=== PATIENT | female | born 1975 | race Caucasian/White ===

== ENCOUNTER 2020-06-15 22:29 | Emergency (ER) | payer BC, SELFPAY ==
[2020-06-15 22:51] VITALS: BP 147/84; PULSE 79; RESP 16; TEMP 36.7; O2SAT 99
--- NOTE | 2020-06-15 22:57 | ECG_ITS ---
Measurements Intervals [place] Rate: 67 P: 36 KS: 202 QRS: -5 QRSD: 78 T: 29 QT: 388 QTc: 410 Interpretive Statements SINUS RHYTHM LOW QRS VOLTAGE IN PRECORDIAL LEADS BORDERLINE ECG Electronically Signed On 06-16-2020 7:00:30 CDT by Ervin Sharma D.O.
[2020-06-15] MEDS: methylPREDNISolone ACETATE 40 MG/ML VIAL 80 MG IM (23:11)
[2020-06-15 23:19] LABS: Hematocrit 36.1 % (35.0-49.0); Hemoglobin 11.4 g/dL (12.0-15.0); Mean Corpuscular HGB Conc 31.6 g/dL (32.0-36.0); Mean Corpuscular Hemoglobin 27.8 pg (27.0-31.0); Platelet Count Result 292 K/mm3 (150-420); Red Cell Distribution Width 13.2 % (11.6-14.4)
[2020-06-15 23:35] LABS: Alanine Aminotransferase 15 U/L (14-59); Albumin Level 3.5 g/dL (3.4-5.0); Alkaline Phosphatase 72 U/L (46-116); Anion Gap 8 mmol/L (8-16); Aspartate Amino Transferase 16 U/L (15-37); Bilirubin,Total 0.2 mg/dL (0.00-1.00); Blood Urea Nitrogen 18 mg/dL (7-18); Carbon Dioxide 28 mmol/L (21-32); Chloride 106 mmol/L (98-108); Estimated CRCL calculation 73 ml/min; Estimated Glomerular Filt Rate > 60; Glucose 104 mg/dL (70-99); Osmolality Calculated 295 mOsm/kg (285-295); Potassium 3.9 mmol/L (3.5-5.1); Sodium 142 mmol/L (136-145); Total Protein 7.1 g/dL (6.4-8.2)
--- NOTE | 2020-06-15 23:36 | ED.NEUROSD ---
HPI - Neuro Symptoms/Deficit General Chief Complaint: Neuro Symptoms/Deficit Stated Complaint: numbness in arm,swelling Source: patient Mode of arrival: ambulatory Limitations: no limitations History of Present Illness HPI Narrative: This is a 44-year-old female with no previous past medical history presents with some numbness and tingling in her left hand and fingers radiates into her 4 am and into her left shoulder, currently there is no known injury no history of smoking currently not taking any medications. There is no chest pain no chest pressure no shortness of breath no neck pain. Has full range of motion of her of her left arm and shoulder and no pain elicited with neck movement or palpation. Onset (ago): hour(s) Severity: mild Quality: numb and tingling Relieving factors: rest Exacerbating factors: none Context: gradual onset Associated symptoms: denies other symptoms Related Data Home Medications Medication Instructions Recorded Confirmed levothyroxine [Synthroid] 50 mcg PO DAILY 06/15/20 06/15/20 Allergies Allergy/AdvReac Type Severity Reaction Status Date / Time No Known Allergies Allergy Unknown Verified 01/17/16 13:07 Review of Systems Review of Systems: All systems reviewed & are unremarkable except as noted in HPI and below PMFSH Past Medical History Medical History Patient denies medical problems Family History Family History Grandparent Family history of arthritis Other Family history of malignant neoplasm Social History Social History Smoking status: Never smoker Alcohol intake: never Gender identity (if verbalized by the patient): Female Exam Const: General: no acute distress and alert Orientation/consciousness: patient oriented x3 HENMT: Head: normal to inspection Eyes: Conjunctivae: conjunctivae normal Pupils: Equal, round and reactive pupils present EOM: EOMs intact bilaterally Neck: Neck: normal visual inspection, no lymphadenopathy and no meningeal signs Chest: Chest palpation & inspection: normal inspection of the chest Resp: Effort & Inspection: normal respiratory effort Auscultation: clear to auscultation bilaterally Cardio: Rate: regular rate Rhythm: regular rhythm GI: GI Palp: Yes Soft to palpation Auscultation: normal bowel sounds Urinary Catheter: Urinary Catheter: patent and draining Back/Spine/Pelvis: Back: no CVA tenderness Skin: General skin exam: normal color Rashes: no rashes Neuro: General: patient oriented x3 and moves all extremities Other: left wrist positive tinneal sign Extrem: General: normal to inspection Psych: Mental Status: mental status grossly normal Course Course Emergency Course: currently no numbness or tingling, numbness in her fingers were elicited with a provocative movement of her left wrist with tinneal Vital Signs Vital signs: Vital Signs Temperature 36.7 C 06/15/20 22:51 Pulse Rate 79 06/15/20 22:51 Respiratory Rate 16 06/15/20 22:51 Blood Pressure 147/84 H 06/15/20 22:51 Pulse Oximetry 99 06/15/20 22:51 Temperature 36.7 C 06/15/20 22:51 Pulse Rate 79 06/15/20 22:51 Respiratory Rate 16 06/15/20 22:51 Blood Pressure 147/84 H 06/15/20 22:51 Pulse Oximetry 99 06/15/20 22:51 MDM - Neuro Symptoms/Deficit Lab Data Result diagrams: 06/15/20 23:14 06/15/20 23:14 Labs: Lab Results 06/15/20 06/15/20 Range/Units 23:14 23:14 WBC 8.0 (4.8-10.8) K/mm3 RBC 4.10 L (4.20-5.40) M/mm3 Hgb 11.4 L (12.0-15.0) g/dL Hct 36.1 (35.0-49.0) % MCV 88.0 (78.0-102.0) fL MCH 27.8 (27.0-31.0) pg MCHC 31.6 L (32.0-36.0) g/dL RDW 13.2 (11.6-14.4) % Plt Count 292 (150-420) K/mm3 MPV 10.0 (9.2-11.8) fl Sodium Pending Potassium Pending Chlo
[2020-06-15 23:37] LABS: Troponin I < 0.02 ng/mL (0.00-0.056)
[2020-06-15 23:41] LABS: Calcium 8.9 mg/dL (8.5-10.1)
[2020-06-15 23:53] VITALS: BP 142/89; PULSE 75; RESP 18; O2SAT 98
== END 2020-06-15 23:53 | disposition home or self-care (01) ==
PROVIDERS: Emergency Provider Emergency Medicine; PCP Internal Medicine Infectious Disease
DX: G56.02 Carpal tunnel syndrome, left upper limb (principal)
CPT/HCPCS: 36415; 80053; 84484; 85027; 93005; 96372; 99283; 99284; J1030

== ENCOUNTER 2022-11-06 12:13 | Outpatient (CLI) | payer BC, SELFPAY ==
--- NOTE | 2022-11-06 12:42 | ECG_ITS ---
Measurements Intervals [place] Rate: 80 P: 38 PA: 176 QRS: 23 QRSD: 78 T: 31 QT: 380 QTc: 440 Interpretive Statements SINUS RHYTHM POSSIBLE LEFT ATRIAL ENLARGEMENT BORDERLINE ECG COMPARED TO ECG 06/15/2020 23:05:52 NO SIGNIFICANT CHANGES Electronically Signed On 11-06-2022 13:02:51 [employer] by Ervin Sharma D.O.
[2022-11-06 12:48] LABS: Hematocrit 39.9 % (37.0-47.0); Hemoglobin 12.9 g/dL (12.0-15.0)
[2022-11-06 12:59] LABS: Albumin Level 4.3 g/dL (3.5-5.1); Estimated Glomerular Filt Rate > 60; Glucose 94 mg/dL (65-110)
[2022-11-06 13:03] LABS: Hemoglobin A1C 5.3 % (<5.7)
[2022-11-06 13:16] LABS: Urine Cotinine NEGATIVE
== END 2022-11-06 12:14 | disposition home or self-care (01) ==
PROVIDERS: PCP Internal Medicine Infectious Disease; Visit Provider Orthopaedic Surgery
DX: M17.11 Unilateral primary osteoarthritis, right knee (principal); Z01.818 Encounter for other preprocedural examination; R94.31 Abnormal electrocardiogram [ECG] [EKG]
CPT/HCPCS: 80307; 82040; 82565; 82947; 83036; 85014; 85018; 93005

== ENCOUNTER 2022-12-11 11:32 | Outpatient (CLI) | payer BC, SELFPAY ==
[2022-12-11 12:28] LABS: Basophils Absolute Auto 0.1 K/mm3 (0.0-0.1); Basophils Percent Auto 0.7 % (0.2-1.2); Eosinophils Absolute Auto 0.1 K/mm3 (0-0.3); Hematocrit 40.5 % (37.0-47.0); Hemoglobin 13.5 g/dL (12.0-15.0); Immature Granulocyte Absolute 0.03 K/mm3 (0.00-0.031); Immature Granulocyte Percent A 0.3 % (0-0.5); Lymphocytes Absolute Auto 2.47 K/mm3 (0.9-3.2); Lymphocytes Percent Auto 28.1 % (18.3-44.2); Mean Corpuscular HGB Conc 33.3 g/dl (32-36); Mean Corpuscular Hemoglobin 29.8 pg (26-34); Mean Corpuscular Volume 89.4 fl (80-100); Mean Platelet Volume 9.7 fl (7.4-10.4); Monocytes Absolute Auto 0.4 K/mm3 (0.1-0.6); Neutrophils Absolute Auto 5.7 K/mm3 (1.3-6.7); Neutrophils Percent Auto 64.9 % (45.5-73.1); Platelet Count Result 310 k/mm3 (150-375); Red Blood Count 4.53 M/mm3 (4.2-5.4); White Blood Count 8.8 K/mm3 (4.5-10.0)
[2022-12-11 12:42] LABS: Albumin Level 4.7 g/dL (3.5-5.1); Estimated Glomerular Filt Rate > 60; Glucose 99 mg/dL (65-110)
[2022-12-11 12:46] LABS: Urine Cotinine NEGATIVE
== END 2022-12-11 11:33 | disposition home or self-care (01) ==
LOC: ANHSURGERY 11:37
PROVIDERS: PCP Internal Medicine Infectious Disease; Visit Provider Orthopaedic Surgery
DX: M17.11 Unilateral primary osteoarthritis, right knee (principal); Z01.818 Encounter for other preprocedural examination
CPT/HCPCS: 80307; 82040; 82565; 82947; 85025; 87081

== ENCOUNTER 2023-01-09 16:19 | Observation (INO) | payer BC, SELFPAY ==
--- NOTE | 2022-12-11 11:21 | PC.NURSE ---
Addendum entered by Tricia Graham RN 12/11/22 12:08: PT STATES PER DR. JENSEN NOT TO STOP METHOTREXATE Original Note: PRE-OP INSTRUCTIONS, PLEASE READ CAREFULLY Report to the Outpatient Waiting Room, entrance under the green pavilion located off [facility], at time _0600_ on date _01/08/23_. Planned Procedure Time: _0730_. PACK A SMALL OVERNIGHT BAG AND LEAVE IN THE CAR ALONG WITH YOUR WALKER Time changes happen often and if your time is changed the preop area will call you the afternoon before. - You and your visitor will be asked to self-screen and do not enter if you have any COVID symptoms. - Only one visitor is requested with a max of two and NO children visitors are allowed at this time. - The patient visitor may be requested to leave or wait in car when not with patient due to distancing restrictions. - A mask is optional within the hospital at this time. -VISITING HOURS 8AM-8PM Patients may have clear liquids (water, carbonated beverages, clear teas, apple juice) until 3 hours prior to surgery (0430 AM) with a maximum of 20 ounces. - No food from midnight until time of surgery Take the following medications with a SIP of water the morning of surgery: _ LEVOTHYROXINE, TYLENOL IF NEEDED_ DO NOT STOP ANY OF YOUR OTHER PRESCRIPTION MEDICATIONS PRIOR TO SURGERY ?EXCEPT THE FOLLOWING Medications to discontinue NONE , Date to take last dose Please no make-up, nail persian, hairspray, perfume, deodorant, or body powder the day of surgery. No jewelry (including any body piercings) or valuables the day of surgery, leave them at home. Please take a shower or bath the night before, or the morning of, surgery with an antibacterial soap. Wear comfortable, loose fitting clothing. - Jewelry must be removed prior to entering the operating room. Rings and piercings that are not removed may be cut off. - The hospital will not accept responsibility for valuables. - Please leave all valuables, including medications, at home the day of surgery. If you are going home after surgery, a licensed dedicated intermodal truck driver must drive you home. - NO public transportation without another adult if you receive anesthesia. - We recommend that an adult stay with you for 24 hours following discharge. - We also recommend that you do not drive, make important decision, drink alcoholic beverages, or take any drugs that were not prescribed by your health care provider for at least 24 hours after your discharge time. Follow any additional instructions given to you from your surgeon. If you or anyone in your household have experienced Covid symptoms in the past week, please notify your surgeon or the nurse liaison at the phone number below for possible testing. Instructions given to _PATIENT_and asked if any additional questions and then verbalized understanding. Patient advised to call surgeon office or pre surgery nurse liaison [phone] if any additional questions.
[2022-12-11 11:54] VITALS: BMI 38.5
[2023-01-08] VITALS (21 sets, daily range): BP systolic 92–139; BP diastolic 57–105; PULSE 88–113; RESP 12–108; TEMP 36.2–37.2; O2SAT 93–100
[2023-01-08] MEDS: ACETAMINOPHEN 500 MG TABLET 1000 MG PO (06:30)
[2023-01-08] MEDS: LACTATED RINGERS 1,000 ML 30 ML IV CONT ×2 (06:35→10:03)
[2023-01-08] MEDS: TRANEXAMIC ACID 1,000MG/ISO100 1,000 MG/100 ML BAG 200 MG IVPB (06:37)
--- NOTE | 2023-01-08 06:45 | WPDANESEPPF ---
Anes - Initial Pre Proc Eval Procedure: Operation Date: 01/08/23 07:30 Proposed Procedures p Right Custom Total Knee Arthroplasty - Zacarias Garcia MD Date/Time: 01/08/23 06:45 Surgeon: Zacarias Garcia MD Pre Op Diagnosis: primary OA right knee Patient Data Age: 47 Gender: F Height: 1.52 m Weight: 88.9 kg Last Vital Signs Temp 36.2 C L 01/08/23 06:16 Pulse 104 H 01/08/23 06:16 Resp 18 01/08/23 06:16 BP 139/105 H 01/08/23 06:16 Pulse Ox 100 01/08/23 06:16 O2 Del Method Room Air 01/08/23 06:16 Allergies Allergy/AdvReac Type Severity Reaction Status Date / Time No Known Allergies Allergy Unknown Verified 01/08/23 06:23 Home Medications Medication Instructions Recorded Confirmed Type levothyroxine 50 mcg tablet 88 mcg PO DAILY 11/14/21 12/12/22 History (Synthroid) folic acid 0.8 mg capsule 0.8 mg PO DAILY 02/13/22 12/12/22 History fluoxetine 20 mg capsule (Prozac) 20 mg PO HS 08/15/22 12/12/22 History acetaminophen 500 mg tablet 1,000 mg PO QID PRN Pain 12/11/22 12/11/22 History methotrexate See Rx Instructions .Route .COMPLEX 12/11/22 12/11/22 History Patient hx anesthesia problems: none Family hx anesthesia problems: none Results Review: All pre-operative results and documents have been reviewed as part of the pre-operative evaluation. [facility] Past Medical History Medical History John's disease History of migraine headaches History of rotator cuff tear Hypothyroidism Patient denies medical problems Psoriatic arthritis Surgical History Surgical History History of cholecystectomy History of knee surgery 2 right knee surgeries History of left knee surgery X 2 History of rotator cuff surgery History of tubal ligation Family History Family History Grandparent Family history of arthritis Leukemia Lymphoma Malignant neoplasm of prostate Grandparent Diabetes mellitus Mother Hypertension Father Hyperlipidemia Other Family history of malignant neoplasm Social History Social History Smoking status: Never smoker Second hand tobacco smoke exposure: No Additional smoking assessment comments: PT DENIES ALL FORMS OF TOBACCO USE Alcohol intake: never Substance use: never Substance use type: does not use Lack of Transportation: No Lack of Food: Never True Current Housing: I Have Housing Concerned About Future Housing: No Difficulty Paying Gas/Electric Bills: No Difficulty Paying for Meds: No Currently Unemployed: No Education: Associate Degree Difficulty w/ Childcare or Family Care: No Living arrangements: with family Additional living arrangements comments: LIVES WITH SPOUSE & CHILDREN Gender identity (if verbalized by the patient): Female Spiritual care concerns: No Anes - Eval Final PreProcedure Day of Procedure 01/08/23 06:45 Patient weight: obese Heart: regular rate and rhythm Lungs: clear to auscultation Airway: Mallampati scale class II Neurological: alert and oriented Last oral intake: >/= 8 hours ASA classification: II Emergent: no Anesthetic plan: proceed Anesthesia type and monitoring: general LMA and standard monitoring Results Review: All pre-operative results and documents have been reviewed as part of the pre-operative evaluation. Informed Consent: The patient's anesthetic plan and its attendant risks and benefits were discussed with the patient/family/POA. Questions were solicited and answers provided to the satisfaction of the patient/family/POA.
--- NOTE | 2023-01-08 07:22 | WPDHPUPDATE1 ---
History and Physical Update Update Date/Time: 01/08/23 07:22 History and Physical has been reviewed, including an updated exam of the patient. There are NO changes in the patient's condition. Risks, benefits, and alternatives have been discussed and questions answered. Patient agrees to proceed with procedure.
--- NOTE | 2023-01-08 07:29 | WPDANESPNB ---
Anes - Peripheral Nerve Block Date/Time: 01/08/23 07:29 I have discussed with the patient/family/POA the placement of a peripheral nerve block for post-operative pain management, including associated risks, benefits, complications, and side effects. Alternative methods of post-operative analgesia were detailed. Questions were solicited and answers provided to the satisfaction of the patient/family/POA. Time-Out: A pre-procedural Time-Out was completed immediately before starting the procedure and confirmed: Patient Identification, Site, Procedure, Patient Position and the Availability of Requisite Equipment. Clinical Indications: Acute post-operative pain management requested by the operative surgeon. Nerve Block Insertion Note Anes-nerve block: femoral right Patient position: supine Skin prep: chlorhexidine Needle: 22 gauge, stimulating, insulated echogenic needle. Needle length: 50 mm Technique: nerve stimulation lost at (mA) (0.3) Injectate: bupivacaine 0.5% with epi 5 mcg/ml (20cc no epi) Observations: tolerated well Complications: none Procedure start time:: 717 Procedure end time:: 721
[2023-01-08] MEDS: ceFAZolin 2 GM/D5W 50 ML 2 GM/50 ML BAG IVPB ×2 (07:34→15:53)
[2023-01-08] MEDS: GENTAMICIN BONE CEMENT REFOBACIN 1 EACH TOPICAL (08:21)
--- NOTE | 2023-01-08 10:15 | W.PM.PROC2 ---
Procedure Note - Detailed Date of Procedure 01/08/23 Pre-op Diagnosis Degenerative arthritis right knee Post-op Diagnosis Same Procedure Performed Total knee arthroplasty, right. Surgeon Zacarias Garcia MD Anesthesia General and Regional (Subsartorial block.) Indications Progressive degenerative arthritis and inflammatory arthritis history. Severe pain limiting daily activities and ability to continue her job. Findings Significant synovitis. Osteophytes on the femur. Bone quality fair. No significant releases required. Standard resections with the [employer] Imprint knee system. Description of Procedure Preoperative antibiotics were given. The limb was prepped and draped in the usual sterile fashion with a well-padded tourniquet high on the thigh. The limb was exsanguinated and the tourniquet inflated to 300 mmHg. A longitudinal incision was created just medial to the patella. A trivector approach to the knee was performed. Arthrotomy was taken down through the joint capsule. No significant releases were initially taken. The femur was exposed and the F1 jig was applied. The coring tool was used to remove the cartilage for the F2 jig to sit flush with the bone. The jig was pinned and the distal cut carefully taken. Caliper measurements confirmed appropriate bony resections according to the preoperative templated plan. The F4 cutting jig for the femur was applied, at the standard rotation. The AP and anterior chamfer cuts were taken. The F5 jig was applied and the posterior chamfer cuts were taken. The tibia was prepared using the T1 jig, after removing cartilage for the jig contact points. Proper alignment was checked with the alignment pawan. The tibia was cut using the T1u guide. Gap balancing was performed. Gap measurements were taken and the knee was trialed. Excellent alignment and soft tissue balancing was confirmed. The posterior cruciate ligament was recessed along the proximal tibia. The patella was cut for resurfacing. Three lug holes were drilled. Meniscal remnants were removed. The trial components were assembled. Excellent range of motion and proper soft tissue balancing were confirmed throughout the full range of motion. Patellar tracking was excellent. The knee was copiously irrigated periodically throughout the procedure. The real implants were cemented into position. Excess cement was carefully removed. The wound was closed in layers with interrupted #1 Vicryl suture, 2-0 strata fix suture, 0 strata fix suture, 2-0 strata fix suture. Steri-Strips placed on the skin with the knee flexed. Sterile bulky dressing applied. The patient was brought to the recovery room in stable condition. There were no complications. Implants [employer] Imprint total knee arthroplasty. Cemented. Cruciate retaining. 7mm insert. 32 mm oval patella. Estimated Blood Loss -100.0 Tourniquet Time 79 Drains No Complications No immediate complications Condition Stable Disposition PACU [facility] Billing Surgery - Charge Forward: Surgery Billing
[2023-01-08] MEDS: fentaNYL CITRATE INJ (*CRX) 100 MCG/2 ML VIAL 25 MCG IV PUSH ×3 (10:27→11:15)
--- NOTE | 2023-01-08 11:05 | SUR.PHASEI ---
Patient meets PACU discharge criteria, unit bed unavailable at this time. Patient placed in extended recovery status at 1105.
[2023-01-08] MEDS: oxyCODONE HCL (*CRX) 5 MG TAB IR PO (12:54)
--- NOTE | 2023-01-08 14:23 | ADMGEN ---
This patient, Corinne Silva, was admitted to Medical Room 258-01. Patient/family oriented to hospital policies and general routines including ID bracelet, bed and alarms, visiting hours, pain management, procedures, bathroom and other care routines, personal items, smoking policy, room service/diet, and visiting hours. Information on how to activate the Rapid Response Team has been discussed. Patient/Family are encouraged to report perceived risks to care and to ask questions if they do not understand what they are told or what they should do.
[2023-01-08] MEDS: SENNA/DOCUSATE SODIUM TABLET 2 TAB PO (17:22)
[2023-01-08] MEDS: ASPIRIN 81 MG ENTERIC TABLET PO (17:22)
[2023-01-08] MEDS: MELOXICAM 7.5 MG TABLET PO (17:22)
[2023-01-08] MEDS: oxyCODONE HCL (*CRX) 5 MG TAB IR 10 MG PO (18:05)
[2023-01-08] MEDS: FAMOTIDINE 20 MG TABLET PO (22:07)
[2023-01-08] MEDS: FLUoxetine HCL 20 MG CAPSULE PO (22:07)
--- NOTE | ~2023-01-09 | XR_ITS ---
EXAMINATION: [id number] DATE: 01/08/2023 10:14 INDICATION: Right knee arthroplasty. Postop. TECHNIQUE: 2 views of right knee were obtained. COMPARISON: Right knee radiographs 08/15/2022 FINDINGS: There is a total right knee arthroplasty with patellar resurfacing in near-anatomic alignme nt. No fracture. There is gas in the knee joint and soft tissues, consistent with recent surgery. IMPRESSION: 1. Total right knee arthroplasty in near-anatomic alignment. Reviewed, dictated and finalized at location A.
[2023-01-09] MEDS: oxyCODONE HCL (*CRX) 5 MG TAB IR PO (00:37)
[2023-01-09 00:40] VITALS: BP 107/73; PULSE 86; RESP 17; TEMP 36.7; O2SAT 96
[2023-01-09] MEDS: ceFAZolin 2 GM/D5W 50 ML 2 GM/50 ML BAG IVPB ×2 (00:48→08:02)
[2023-01-09 04:44] VITALS: BP 100/64; PULSE 88; RESP 17; TEMP 36.6; O2SAT 96
[2023-01-09 05:53] LABS: Basophils Percent Auto 0.6 % (0.2-1.2); Eosinophils Absolute Auto 0.1 K/mm3 (0-0.3); Hematocrit 31.5 % (37.0-47.0); Hemoglobin 10.3 g/dL (12.0-15.0); Immature Granulocyte Absolute 0.03 K/mm3 (0.00-0.031); Immature Granulocyte Percent A 0.4 % (0-0.5); Lymphocytes Absolute Auto 2.07 K/mm3 (0.9-3.2); Lymphocytes Percent Auto 29.3 % (18.3-44.2); Mean Corpuscular HGB Conc 32.7 g/dl (32-36); Mean Corpuscular Hemoglobin 29.2 pg (26-34); Mean Corpuscular Volume 89.2 fl (80-100); Mean Platelet Volume 9.7 fl (7.4-10.4); Monocytes Absolute Auto 0.6 K/mm3 (0.1-0.6); Monocytes Percent Auto 7.9 % (2.6-8.5); Neutrophils Absolute Auto 4.2 K/mm3 (1.3-6.7); Neutrophils Percent Auto 59.8 % (45.5-73.1); Platelet Count Result 210 k/mm3 (150-375); Red Blood Count 3.53 M/mm3 (4.2-5.4); Red Cell Distribution Width 13.9 % (11.5-14.5); White Blood Count 7.1 K/mm3 (4.5-10.0)
[2023-01-09] MEDS: LEVOTHYROXINE SODIUM 88 MCG TABLET PO (06:01)
[2023-01-09 06:26] LABS: Anion Gap 4 mmol/L (8-16); Blood Urea Nitrogen 13 mg/dL (7-17); Calcium 8.1 mg/dL (8.4-10.2); Carbon Dioxide 28 mmol/L (22-30); Chloride 104 mmol/L (98-107); Estimated Glomerular Filt Rate > 60; Glucose 117 mg/dL (65-110); Potassium 3.8 mmol/L (3.4-5.0); Sodium 136 mmol/L (137-145)
[2023-01-09 08:08] VITALS: RESP 16; O2SAT 100
[2023-01-09] MEDS: FAMOTIDINE 20 MG TABLET PO ×2 (08:08→20:20)
[2023-01-09] MEDS: predniSONE 5 MG TABLET PO (08:08)
[2023-01-09] MEDS: MELOXICAM 7.5 MG TABLET PO ×2 (08:08→16:48)
[2023-01-09] MEDS: SENNA/DOCUSATE SODIUM TABLET 2 TAB PO ×2 (08:08→16:48)
[2023-01-09] MEDS: ASPIRIN 81 MG ENTERIC TABLET PO ×2 (08:08→16:48)
[2023-01-09] MEDS: oxyCODONE HCL (*CRX) 5 MG TAB IR 10 MG PO ×3 (08:18→16:09)
[2023-01-09 09:35] VITALS: BP 109/71; PULSE 99; RESP 16; TEMP 36.8; O2SAT 100
[2023-01-09] MEDS: CYCLOBENZAPRINE HCL 10 MG TABLET PO ×2 (11:31→20:20)
--- NOTE | 2023-01-09 13:29 | PC.NURSE ---
On 01/09/23, the student, [Sugey Nolan], provided care and completed [facility] documentation on this patient. I have reviewed the student's documentation and agree with the findings.
[2023-01-09 14:00] VITALS: BP 123/81; PULSE 95; RESP 18; TEMP 36.9; O2SAT 99
--- NOTE | 2023-01-09 14:24 | PC.NURSE ---
On 01/09/23, the student, [Emerson Cancino], provided care and completed [facility] documentation on this patient. I have reviewed the student's documentation and agree with the findings.
--- NOTE | 2023-01-09 17:08 | PM.PNORT ---
Progress Note: A&P Assessment and Plan (1) Orthopedic aftercare for joint replacement: Code(s): Z47.1 - Aftercare following joint replacement surgery Status: Acute (2) Status post total right knee replacement: Code(s): Z96.651 - Presence of right artificial knee joint Status: Acute Plan Moderate pain despite oral pain medication. Postoperative day 1 status post total knee arthroplasty. Mobilizing poorly. Poor quad function. Examination Wound healing well. Scant drainage. Quad function poor. Swelling moderate. Wiggles toes. Light touch sensation intact. Alert oriented x3. No distress. Impression Slow progress status post total knee. Mobilizing slowly due to quad dysfunction. Possibly related to the nerve block. Pain control is fair. Continue to observe. Physical therapy this afternoon and tomorrow. Possible discharge tomorrow morning. Subjective Subjective Date/Time Seen: 01/09/23 17:08 Objective Data Vital Signs Vital Signs: Vital Signs - 24 hr 01/08/23 20:44 01/09/23 00:40 01/08/23 20:00 Temperature 36.7 C 36.7 C Pulse Rate 100 86 Respiratory Rate 18 17 Blood Pressure 114/80 107/73 Pulse Oximetry 98 96 Oxygen Delivery Room Air 01/09/23 04:44 01/09/23 09:35 01/09/23 08:08 Temperature 36.6 C 36.8 C Pulse Rate 88 99 Respiratory Rate 17 16 16 Blood Pressure 100/64 109/71 Pulse Oximetry 96 100 100 Oxygen Delivery Room Air 01/09/23 14:00 Temperature 36.9 C Pulse Rate 95 Respiratory Rate 18 Blood Pressure 123/81 Pulse Oximetry 99 Oxygen Delivery Intake/Output Intake/Output: Intake & Output 01/06/23 01/07/23 01/08/23 01/09/23 23:59 23:59 23:59 23:59 Intake Total 1720 1290 Output Total 1200 Balance 520 1290 Meds/Results Medications: Active Medications Generic Name Dose Route Start Last Admin Trade Name Freq PRN Reason Stop Dose Admin Aspirin 81 mg 01/08/23 17:00 01/09/23 16:48 Aspirin 81 Mg Enteric Tablet PO 81 mg BID MORRIS Administration Cyclobenzaprine HCl 10 mg 01/08/23 14:59 01/09/23 11:31 Cyclobenzaprine Hcl 10 Mg Tablet PO 10 mg Q8H PRN Administration Spasms Diphenhydramine HCl 25 mg 01/08/23 14:59 Diphenhydramine Hcl Inj 50 Mg/Ml Vial IV PUSH Q6H PRN Itching Famotidine 20 mg 01/08/23 21:00 01/09/23 08:08 Famotidine 20 Mg Tablet PO 20 mg Q12HR [facility] Administration Fluoxetine HCl 20 mg 01/08/23 21:00 01/08/23 22:07 Fluoxetine Hcl 20 Mg Capsule PO 20 mg HS [facility] Administration Levothyroxine Sodium 88 mcg 01/09/23 06:30 01/09/23 06:01 Levothyroxine Sodium 88 Mcg Tablet PO 88 mcg DAILY@0630 [facility] Administration Meloxicam 7.5 mg 01/08/23 17:00 01/09/23 16:48 Meloxicam 7.5 Mg Tablet PO 7.5 mg BID [facility] Administration Naloxone HCl 0.1 mg 01/08/23 14:59 Naloxone Hcl 0.4 Mg/Ml Vial IV PUSH Q2M PRN Opiate Reversal Ondansetron HCl 4 mg 01/08/23 14:59 Ondansetron Inj 4 Mg/2 Ml Vial IV PUSH Q4H PRN Nausea And Vomiting Oxycodone HCl 5 mg 01/08/23 12:39 01/09/23 00:37 Oxycodone Hcl (*Crx) 5 Mg Tab Ir PO 5 mg Q4H PRN Administration Pain Rated 4-6 Oxycodone HCl 10 mg 01/08/23 12:39 01/09/23 16:09 Oxycodone Hcl (*Crx) 5 Mg Tab Ir PO 10 mg Q4H PRN Administration Pain Rated 7-10 Polyethylene Glycol 17 gm 01/09/23 09:00 01/09/23 08:09 Polyethylene Glycol 3350 17 Gm Powd.Pack PO Not Given QAM [facility] Prednisone 5 mg 01/09/23 08:00 01/09/23 08:08 Prednisone 5 Mg Tablet PO 5 mg DAILY@0800 [facility] Administration Senna/Docusate Sodium 2 tab 01/08/23 17:00 01/09/23 16:48 Senna/Docusate Sodium Tablet PO 2 tab BID [facility] Administration Tramadol HCl 50 mg 01/08/23 12:39 Tramadol Hcl (*Crx) 50 Mg Tablet PO Q4H PRN Pain Rated 1-3 Radiology Results: ITS Impressions Knee X-Ray 01/08/23 10:15 IMPRESSION: 1. Total right knee arthroplasty in near-
[2023-01-09 19:58] VITALS: BP 117/77; PULSE 98; RESP 18; TEMP 36.5; O2SAT 100
[2023-01-09] MEDS: FLUoxetine HCL 20 MG CAPSULE PO (20:20)
[2023-01-10] MEDS: oxyCODONE HCL (*CRX) 5 MG TAB IR 10 MG PO ×3 (02:16→13:33)
[2023-01-10 03:45] VITALS: BP 110/64; PULSE 99; RESP 17; TEMP 36.9; O2SAT 93
[2023-01-10] MEDS: LEVOTHYROXINE SODIUM 88 MCG TABLET PO (05:44)
[2023-01-10] MEDS: ASPIRIN 81 MG ENTERIC TABLET PO (08:58)
[2023-01-10] MEDS: predniSONE 5 MG TABLET PO (08:58)
[2023-01-10] MEDS: FAMOTIDINE 20 MG TABLET PO (08:58)
[2023-01-10] MEDS: MELOXICAM 7.5 MG TABLET PO (08:58)
[2023-01-10] MEDS: SENNA/DOCUSATE SODIUM TABLET 2 TAB PO (08:59)
[2023-01-10] MEDS: polyethylene glycoL 3350 17 GM POWD.PACK PO (08:59)
--- NOTE | 2023-01-24 17:13 | PM.DS ---
DS: Admitting Diagnosis Discharge Date 01/10/23 Admitting Diagnosis right knee djd DS: Discharge Diagnosis Discharge Diagnosis (1) Status post total right knee replacement: Code(s): Z96.651 - Presence of right artificial knee joint Status: Acute (2) Orthopedic aftercare for joint replacement: Code(s): Z47.1 - Aftercare following joint replacement surgery Status: Acute DS: Summary Hospital Course Reason for hospitalization: Total knee arthroplasty. Hospital Course: Tolerated surgery well. Progressed appropriately with therapy. Status at Discharge Functional status at discharge: uses cane/walker Overall status at discharge: patient is progressing back to baseline Time Spent with Patient Time attestation: Total time spent providing and/or coordinating discharge services: Exam Const: General: no acute distress Resp: Effort & Inspection: normal respiratory effort Skin: Other: Wound healing well. Mepilex dressing intact. No hematoma or drainage. Neuro: Motor exam (neuro): 5/5 motor strength present throughout Sensory Exam: normal sensation Psych: Mental Status: mental status grossly normal Speech and movement: Normal speech and movement present Discharge Plan Discharge Attending physician on discharge: Zacarias Garcia Consulting providers: Michael Poole ; Shon Connolly V. Discharging Clinician: Zacarias Garcia Anticipated Discharge Date/Time: 01/10/23 11:02 Patient Disposition: Home, Self-Care Activity: may shower Diet: as tolerated Wound Care Instructions: follow printed instructions Discharge Instructions: See instruction sheet. Stand Alone Forms: General Discharge Instructions Follow-up/Referrals: Zacarias Garcia MD [Physician] - Discharge Medications: New prednisone 5 mg tablet 5 mg PO DAILY 21 Days Qty: 21 0RF aspirin 81 mg tablet,delayed release (DR/EC) 81 mg PO BID 14 Days Qty: 28 0RF oxycodone-acetaminophen 5-325 mg tablet 1 - 2 tablet PO Q4-6H MDD 6 PRN (Reason: pain) Qty: 30 0RF cephalexin 500 mg capsule 500 mg PO BID 10 Days Qty: 20 0RF Rx Instructions: Take twice a day for 10 days. prednisone 5 mg tablet 5 mg PO DAILY Qty: 10 0RF Continued levothyroxine [Synthroid] 50 mcg tablet 88 mcg PO DAILY fluoxetine [Prozac] 20 mg capsule 20 mg PO HS folic acid 0.8 mg capsule 0.8 mg PO DAILY methotrexate See Rx Instructions .ROUTE .COMPLEX Rx Instructions: 2.5MG TABLET, 6 TABLETS WEEKLY - PT TAKES ON SATURDAYS Held acetaminophen 500 mg Tablet 1,000 mg PO QID PRN (Reason: Pain) Hold Instructions: Resume on 01/22/23. Do not take more than 3-4,000 mg in 24 hour period. Oxycodone has Tylenol in it. No Action oxycodone-acetaminophen 5-325 mg tablet 1 - 2 tablet PO Q4-6H MDD 6 tablets PRN (Reason: pain) Qty: 30 0RF Date of admission: 01/09/23 16:19 Primary Care Provider: Edda,Anival Admitting Provider: Zacarias Garcia Attending physician on admission: Zacarias Garcia Condition: Stable Quality VTE Prophylaxis VTE prophylaxis: mechanical ordered (JACOB rocha and Salma)
== END 2023-01-10 15:15 | disposition home or self-care (01) ==
LOC: ANHSURGERY 16:22 → ANH2MED 16:22
PROVIDERS: Physician Assistant Surgical; Admitting Provider Orthopaedic Surgery; PCP Internal Medicine Infectious Disease; Visit Provider Orthopaedic Surgery
PROC: (CPT 27447; principal; 2023-01-08 07:30)
DX: M17.11 Unilateral primary osteoarthritis, right knee (principal); E06.3 Autoimmune thyroiditis; G43.909 Migraine, unspecified, not intractable, without status migrainosus; E03.9 Hypothyroidism, unspecified; L40.50 Arthropathic psoriasis, unspecified; G89.18 Other acute postprocedural pain; E66.9 Obesity, unspecified; Z68.38 Body mass index [BMI] 38.0-38.9, adult; Z79.1 Long term (current) use of non-steroidal anti-inflammatories (NSAID); Z79.899 Other long term (current) drug therapy; Z82.61 Family history of arthritis
CPT/HCPCS: 27447; 64447; 36415; 73560; 80048; 85025; 86850; 86900; 86901; 97110; 97116; 97161; 97165; 97530; 97535; A9270; C1713; C1776; G0378; J0131; J0171; J0690; J1885; J2250; J2270; J2405; J2704; J2795; J3010; J7120; J7512

== ENCOUNTER 2023-01-22 09:59 | Outpatient (RCR) | payer BC, SELFPAY ==
--- NOTE | 2023-01-22 11:10 | PTOPEVAL1 ---
Assessment and note entered by Job Rodrigez Evaluation Information Assessment Status Evaluation Diagnosis s/p R TKA Onset 01/08/23 Subjective Information Pt. reports that she underwent right TKA on . She reports that she stayed in the hospital for 2 days after surgery. Pt. reports she has been doing exercise at home for the past 2 weeks. She reports that she has had difficulty with sleep due to pain. 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 She states that she wants to get back to work and being able to walk normally. She reports that her goal is to be able to be on her feet for 8 hours a day. Reported Pain Level Pain Score 3: Self Report Assessment PT Clinical Summary Pt. is a 47 year old female who enters the clinic 2 weeks post right TKA. She presents with impaired gait, impaired ROM, impaired strength, functional decline and edema. She would benefit from continued skilled PT to address these areas to allow her to achieve her goal of improved gait and endurance with ambulation. Plan of Care Interventions Electrical Stimulation,Gait Training,Hot Pack/Cold Pack,Intermittent Compression,Manual Therapy, Neuro Re-education,Patient/Caregiver Educati, Therapeutic Activities,Therapeutic Exercise PT Services Indicated Yes Treatment Frequency and 2x/week x 12 visits Duration These treatments will address the objective and functional deficits as defined above. The patient will be advanced safely and appropriately in order for the patient to progress towards his/her prior level of function. Additional exercises will be introduced and as well as a comprehensive home exercise program upon discharge, if needed, ?to ensure carryover of functional gains achieved in the clinic. This treatment plan has been reviewed and agreement upon by the patient.
--- NOTE | 2023-02-12 12:25 | PTOPPROG ---
Assessment and note entered by Angela Bess, PT Evaluation Information Assessment Status Progress Diagnosis s/p R TKA Onset 01/08/23 Subjective Information Corinne reports her right knee continues to be stiff and painful. She notes she has increased pain and difficulty with going from sitting to standing, bending her knee, and stairs. She reports no pain walking in her home but she has not tried walking more outside the home since surgery. Assessment PT Clinical Summary Corinne Silva has completed 10 skilled PT visits following a right total knee replacement. She is reporting ongoing pain and stiffness in the right knee that limits her ability to bend, transfer sit to stand, and walk. She demonstrates improved right knee active and passive ROM but still has moderate limitations as well as impaired gait, decreased strength, and decreased functional abilities. She will continue to benefit from skilled PT to further address these limitations. Plan of Care Interventions Electrical Stimulation,Hot Pack/Cold Pack, Intermittent Compression,Manual Therapy,Neuro Re- education,Patient/Caregiver Educati,Therapeutic Activities,Therapeutic Exercise PT Services Indicated Yes Treatment Frequency and Continue 3 times a week for 6 visits Duration These treatments will address the objective and functional deficits as defined above. The patient will be advanced safely and appropriately in order for the patient to progress towards his/her prior level of function. Additional exercises will be introduced and as well as a comprehensive home exercise program upon discharge, if needed, ?to ensure carryover of functional gains achieved in the clinic. This treatment plan has been reviewed and agreement upon by the patient.
--- NOTE | 2023-02-25 18:01 | PTOPPROG ---
Assessment and note entered by Angela Bess, PT Evaluation Information Assessment Status Progress Diagnosis s/p R TKA Onset 01/08/23 Subjective Information Corinne reports her right knee is improving overall. She is noting no real pain in it but does c/o stiffness and tightness which makes getting her knee straight diffiucult. She is able to go up and down stairs reciprocally now and feels she is walking better as well. She does note limitations with being able to squat and get in lower cabinets . Assessment PT Clinical Summary Corinne Silva has completed 15 skilled PT visits following a right total knee arthroplasty performed on 01/08/23. She is reporting minimal to no pain but has a lot of stiffness and tightness limiting her mobility. She is able to walk in the community without difficulty, navigate stairs reciprocally, and drive. She does feel she has limitations with squatting to get to lower cabinets and she has to modify how she puts on shoes and socks. She objectively demonstrates steady progressions in right knee active and passive ROM but she is still moderately limited with extension and flexion. She has made progress with her strength, gait, and balance. She will see her surgeon on 02/26/23. Plan of Care Interventions Gait Training,Intermittent Compression,Manual Therapy,Neuro Re-education,Patient/Caregiver Educati,Therapeutic Activities,Therapeutic Exercise PT Services Indicated Yes Treatment Frequency and The patient has one visit pending on 02/27/23. We Duration await further instruction from her physician regarding ongoing PT. These treatments will address the objective and functional deficits as defined above. The patient will be advanced safely and appropriately in order for the patient to progress towards his/her prior level of function. Additional exercises will be introduced and as well as a comprehensive home exercise program upon discharge, if needed, ?to ensure carryover of functional gains achieved in the clinic. This treatment plan has been reviewed and agreement upon by the patient.
--- NOTE | 2023-02-27 10:32 | PTOPREEVAL ---
Assessment and note entered by JT File, PT Evaluation Information Assessment Status Re-evaluation Diagnosis s/p R TKA Onset 01/08/23 Subjective Information patient reports she saw her surgeon yesterday. she reports he is not happy with her mobility and would like to do a manipulation. she reports she is still really tight in both flexion and extension of the R knee. Reported Pain Level Pain Score 1: Self Report Assessment PT Clinical Summary mrs. doshi presents to [facility] for her 16th skilled therapy visit. she continues to be limited in full rom of the R knee. she is planning to have a manipulation performed on the R knee in the coming weeks. she would benefit from continued skilled PT to work on progression of passive and active rom and gait mechanics to achieve goals. Plan of Care Interventions Gait Training,Intermittent Compression,Manual Therapy,Neuro Re-education,Patient/Caregiver Educati,Therapeutic Activities,Therapeutic Exercise PT Services Indicated Yes Treatment Frequency and continue skilled PT 3x weekly for 6 more visits Duration These treatments will address the objective and functional deficits as defined above. The patient will be advanced safely and appropriately in order for the patient to progress towards his/her prior level of function. Additional exercises will be introduced and as well as a comprehensive home exercise program upon discharge, if needed, ?to ensure carryover of functional gains achieved in the clinic. This treatment plan has been reviewed and agreement upon by the patient.
== END 2023-02-27 20:00 | disposition home or self-care (01) ==
LOC: CHSPT 09:59
PROVIDERS: Visit Provider Physician Assistant Surgical
DX: Z47.1 Aftercare following joint replacement surgery (principal); Z96.651 Presence of right artificial knee joint
CPT/HCPCS: 97016; 97110; 97140; 97161; 97530

== ENCOUNTER 2024-07-16 18:46 | Emergency (ER) | payer OTHER, SELFPAY ==
--- NOTE | ~2024-07-16 | CT_ITS ---
CT abdomen pelvis w con Ordering provider: Andrew Grant MD History: 48 years Female with . RLQ ABD PAIN X 1 DAY. . Comparison: None. Technique: CT abdomen and pelvis with IV and without oral contrast. Automated exposure control and it erative reconstruction technique were employed. The dose-length product was 965.25 mGy-cm. 100 mL Omn ipaque 350 was given IV. Findings: VISUALIZED LOWER CHEST: Normal. UPPER ABDOMINAL ORGANS: Liver: Borderline hepatomegaly. Gallbladder: Status post cholecystectomy. Spleen: Normal. Stomach/duodenum: thickened distal esophagus which may indicate reflux of cystitis.. Pancreas: Normal. Adrenals: Normal. Kidneys: Normal. PELVIC ORGANS: The bladder is slightly underfilled slightly thickened wall. Left ovarian cyst measuri ng 2.7 cm. BOWEL AND MESENTERY: Colon: No evidence of diverticulitis. Fecal material seen in the cecum. No evidence of appendicitis. Small Bowel: Normal. No obstruction. Peritoneum/mesentery: No free air or free fluid. No mesenteric lymphadenopathy. 1 small mesenteric ly mph nodes are noted. RETROPERITONEUM: Normal aorta. No retroperitoneal lymphadenopathy. Small para-aortic lymph nodes. S mall right iliac lymph node measuring 1 cm is noted. MUSCULOSKELETAL: Superficial soft tissues: The superficial soft tissues are normal. Bones: Age appropriate degenerative changes of the spine. Bilateral sacroiliacs. IMPRESSION: IMPRESSION: 1. No evidence of appendicitis, diverticulitis or intestinal obstruction. 2. Hepatomegaly. 3. Thickened distal esophagus with reflux esophagitis. 4. Left ovarian cyst. 5. Constipation. Reviewed, dictated and finalized at location A. IMPRESSION:
--- NOTE | ~2024-07-16 | XR_ITS ---
XR chest 2V Ordering provider: Andrew Grant MD History: 48 years Female with . epigastric pain SINCE THIS AM. . Comparison: None. FINDINGS: MEDIASTINUM: The cardiac silhouette is not enlarged. LUNGS: No infiltrates, effusions or pneumothorax. Prominent markings in the lower lobes. OTHER: No free air under the diaphragm. IMPRESSION: No acute cardiopulmonary pathology. Reviewed, dictated and finalized at location A.
--- NOTE | 2024-07-16 18:55 | PC.NURSE ---
assumed care. report received from ana griffith
[2024-07-16 18:56] VITALS: BP 144/100; PULSE 78; RESP 16; TEMP 35.7; O2SAT 97
--- NOTE | 2024-07-16 19:06 | ED.ABDPAIN ---
HPI - Abdominal Pain General Chief Complaint: Abdominal Pain Stated Complaint: abdominal pain Time Seen by Provider: 07/16/24 19:05 Source: patient Mode of arrival: ambulatory Limitations: no limitations History of Present Illness HPI narrative: 48 year old female presents to the Emergency Department complaining of abdominal pain. Onset today. Began this morning with epigastric pain. Now having pain to periumbilical and right lower quadrant. No prior history of. Denies nausea, vomiting, diarrhea or constipation. Denies urinary tract symptoms. History of cholecystectomy and tubal ligation. MD elicited complaint: abdominal pain Pertinent past history: none Onset (ago): hour(s) (this morning) Pain Consistency: constant Location: epigastric, periumbilical and RLQ Severity: moderate Radiation: none Exacerbating factors: nothing Relieving factors: nothing Related Data Patient : Yes Home Medications Medication Instructions Recorded Confirmed levothyroxine 50 mcg tablet 88 mcg PO DAILY 11/14/21 07/16/24 (Synthroid) folic acid 0.8 mg capsule 0.8 mg PO DAILY 02/13/22 07/16/24 fluoxetine 20 mg capsule (Prozac) 20 mg PO HS 08/15/22 07/16/24 acetaminophen 500 mg tablet 1,000 mg PO QID PRN Pain 12/11/22 07/16/24 methotrexate See Rx Instructions .Route .COMPLEX 12/11/22 07/16/24 Allergies Allergy/AdvReac Type Severity Reaction Status Date / Time No Known Allergies Allergy Unknown Verified 04/21/23 10:33 Review of Systems Review of Systems: All systems reviewed & are unremarkable except as noted in HPI and below Constitutional: Constitutional: Reports as per HPI, Denies chills and Denies fever(s) Eyes: Eyes: Reports as per HPI ENT: Reports system reviewed and no additional complaints, except as documented Cardiovascular: Cardiovascular: Reports as per HPI and Denies chest pain Respiratory: Respiratory: Reports as per HPI, Denies chest congestion and Denies dyspnea Gastrointestinal: Gastrointestinal: Reports as per HPI, Reports abdominal pain, Denies diarrhea, Denies nausea and Denies vomiting Genitourinary: Genitourinary: Reports no additional female genitourinary complaints, Denies nocturia, Denies dysuria and Denies flank pain Musculoskeletal: Musculoskeletal: Reports no additional musculoskeletal complaints Integumentary/Breasts: Skin/Breast: Reports system reviewed and no additional complaints, except as docu Neurologic: Reports system reviewed and no additional complaints, except as documented PMFSH Past Medical History Medical History John's disease History of migraine headaches History of rotator cuff tear Hypothyroidism Patient denies medical problems Psoriatic arthritis Surgical History Surgical History History of cholecystectomy History of knee surgery 2 right knee surgeries History of left knee surgery X 2 History of rotator cuff surgery History of tubal ligation Family History Family History Grandparent Family history of arthritis Leukemia Lymphoma Malignant neoplasm of prostate Grandparent Diabetes mellitus Mother Hypertension Father Hyperlipidemia Other Family history of malignant neoplasm Social History Social History Smoking status: Never smoker Second hand tobacco smoke exposure: No Alcohol intake: never Substance use: never Substance use type: does not use Lack of Transportation: No Lack of Food: Never True Current Housing: I Have Housing Concerned About Future Housing: No Difficulty Paying Gas/Electric Bills: No Difficulty Paying for Meds: No Currently Unemployed: No Education: Associate Degree Difficulty w/ Childcare or Family Care: No Living arrangements: with family Additional living arrangements
--- NOTE | 2024-07-16 19:07 | PC.NURSE ---
report to nacho rosa
--- NOTE | 2024-07-16 19:11 | ECG_ITS ---
Test Date: 2024-07-16 19:34:58 Measurements Intervals [place] Rate: 75 P: 39 SC: 196 QRS: 10 QRSD: 79 T: 13 QT: 389 QTc: 436 Interpretive Statements SINUS RHYTHM DELAYED PRECORDIAL R/S TRANSITION LOW QRS VOLTAGE IN PRECORDIAL LEADS MINIMAL Q WAVES- INFERIOR LEADS BORDERLINE T WAVE ABNORMALITY- INFERIOR LEADS BORDERLINE ECG No previous ECG available for comparison Electronically Signed On 07-17-2024 08:01:41 CDT by Ervin Sharma D.O.
--- NOTE | 2024-07-16 19:27 | PC.NURSE ---
cardiopulmonary at the bedside
[2024-07-16 19:31] LABS: Basophils Absolute Auto 0.03 K/mm3 (0.00-0.10); Basophils Percent Auto 0.3 % (0.0-1.0); Eosinophils Absolute Auto 0.17 K/mm3 (0.02-0.50); Hematocrit 35.4 % (35.0-49.0); Hemoglobin 11.8 g/dL (12.0-15.0); Immature Granulocyte Absolute 0.02 K/mm3 (0.00-0.00); Immature Granulocyte Percent A 0.2 % (0.0-0.0); Lymphocytes Absolute Auto 2.35 K/mm3 (1.10-4.50); Lymphocytes Percent Auto 27.1 % (18.0-42.0); Mean Corpuscular HGB Conc 33.3 g/dL (32-36); Mean Corpuscular Hemoglobin 28.5 pg (27.0-31.0); Mean Corpuscular Volume 85.5 fL (78.0-102.0); Mean Platelet Volume 9.9 fl (9.2-11.8); Monocytes Absolute Auto 0.45 K/mm3 (0.10-0.90); Monocytes Percent Auto 5.2 % (2.0-11.0); Neutrophils Absolute Auto 5.65 K/mm3 (1.70-7.20); Neutrophils Percent Auto 65.2 % (50.0-70.0); Platelet Count Result 258 K/mm3 (150-420); Red Blood Count 4.14 M/mm3 (4.20-5.40); Red Cell Distribution Width 13.9 % (11.6-14.4); White Blood Count 8.7 K/mm3 (4.8-10.8)
[2024-07-16 19:34] LABS: Add Urine Microscopic? NO; Appearance Urine Clear (Clear); Bilirubin Urine Negative (Negative); Blood Urine Negative (Negative); Color Urine Light Yellow (Yellow); Glucose Urine UA Negative (Negative); Ketones Urine Negative (Negative); Leukocyte Esterase Ur Negative (Negative); Nitrate Urine Negative (Negative); Protein Urine Negative (Negative); Specific Grav Ur <= 1.005 (1.010-1.020); Urobilinogen Urine 0.2 mg/dL (0.2-1.0)
--- NOTE | 2024-07-16 19:40 | PC.NURSE ---
patient taken to radiology
[2024-07-16 19:45] LABS: Pregnancy On Board Control Positive; Urine Pregnancy Test Negative
[2024-07-16 19:49] LABS: Alanine Aminotransferase 18 U/L (14-59); Albumin Level 3.5 g/dL (3.4-5.0); Alkaline Phosphatase 78 U/L (46-116); Amylase 49 U/L (25-115); Anion Gap 8 mmol/L (4-12); Aspartate Amino Transferase 15 U/L (15-37); Bilirubin,Total 0.4 mg/dL (0.00-1.00); Blood Urea Nitrogen 14 mg/dL (7-18); Calcium 8.8 mg/dL (8.5-10.1); Carbon Dioxide 28 mmol/L (21-32); Chloride 101 mmol/L (98-108); Estimated Glomerular Filt Rate > 60; Glucose 88 mg/dL (70-99); Lipase 36 U/L (16-77); Osmolality Calculated 283 mOsm/kg (285-295); Potassium 3.3 mmol/L (3.5-5.1); Sodium 137 mmol/L (136-145); Total Protein 7.2 g/dL (6.4-8.2)
--- NOTE | 2024-07-16 19:55 | PC.NURSE ---
returned from ct.
[2024-07-16 20:12] LABS: Troponin I < 4.0 ng/L (0.00-60.4)
--- NOTE | 2024-07-16 20:42 | PC.NURSE ---
resting on stretcher in room. Denies any needs at this time. currently waiting on ct results. call light in reach
[2024-07-16 22:11] VITALS: BP 131/92; PULSE 74; RESP 18; TEMP 36; O2SAT 97
--- NOTE | 2024-07-16 22:22 | PC.NURSE ---
patient is resting on stretcher. call light in reach. continue to wait on ct results.
--- NOTE | 2024-07-16 22:32 | PC.NURSE ---
Dr Grant at the bedside
== END 2024-07-16 22:49 | disposition home or self-care (01) ==
PROVIDERS: Emergency Provider Emergency Medicine; PCP Internal Medicine Infectious Disease
DX: K59.00 Constipation, unspecified (principal); K21.00 Gastro-esophageal reflux disease with esophagitis, without bleeding; N83.202 Unspecified ovarian cyst, left side; E03.9 Hypothyroidism, unspecified; Z79.899 Other long term (current) drug therapy
CPT/HCPCS: 36415; 71046; 74177; 80053; 81003; 81025; 82150; 83690; 84484; 85025; 93005; 99284; Q9967

== ENCOUNTER 2024-12-12 13:54 | Emergency (ER) | payer OTHER, SELFPAY ==
--- NOTE | ~2024-12-12 | CT_ITS ---
EXAMINATION: CT lumbar spine wo con DATE: 12/12/2024 14:32 INDICATION: 3 days of worsening low back pain TECHNIQUE: Computed tomography (CT) of the lumbar spine was performed without intravenous contrast. A utomated exposure control and iterative reconstruction technique were employed. The dose-length produ ct was 1105.68 mGy-cm. COMPARISON: None FINDINGS: Alignment is normal. Vertebral body heights are normal. No fracture. T11 inferior endplate Schmorl's node with some surrounding sclerosis and adjacent disc calcification and moderate disc height loss at T11-T12. Mild disc height loss at T12-L1 and L5-S1. Paravertebral soft tissues are unremarkable. Mil d right and moderate left sacroiliac osteoarthritis. The following disc levels are specifically discu ssed: T11-T12: There is mild bilateral facet joint osteoarthritis. There is no neural foraminal stenosis. T here is no central canal stenosis. T12-L1: There is mild bilateral facet joint osteoarthritis. There is no neural foraminal stenosis. Th ere is no central canal stenosis. L1-L2: Disc is bulging with small amount curvilinear peripheral calcification. There is mild to moder ate bilateral facet joint osteoarthritis. There is no neural foraminal stenosis. There is mild centra l canal stenosis. L2-L3: There is moderate bilateral facet joint osteoarthritis. There is no neural foraminal stenosis. There is no central canal stenosis. L3-L4: Disc is mildly bulging. There is mild left and mild to moderate right facet joint osteoarthrit is. There is mild bilateral neural foraminal stenosis. There is mild central canal stenosis. L4-L5: Disc is bulging. There is severe bilateral facet joint osteoarthritis. There is mild right and mild to moderate left neural foraminal stenosis. There is mild central canal stenosis. L5-S1: Disc is mildly bulging. There is severe bilateral facet joint osteoarthritis with developing f usion at the margins of the right facet joint. There is mild bilateral neural foraminal stenosis. The re is no central canal stenosis. IMPRESSION: 1. Mild lumbar spondylosis. No acute osseous abnormality. Reviewed, dictated and finalized at location A. STANT BASKETBALL COACH
[2024-12-12 13:55] VITALS: BP 150/110; PULSE 82; RESP 20; TEMP 36.7; O2SAT 100
--- OUTSIDE RECORDS SUMMARY | 2024-12-12 13:56 | XMS_ITS | Encounter Summary ---
Author Organization [facility] Address [address] [place] [address] Phone Care Team Providers Care Manufacturing Operator Name Role Phone Edda Anival Siddiqui MD Primary Care Provider [phone] Zacarias Garcia MD Unavailable [phone] Christian Banegas MD Unavailable [phone] Jesusita Montiel MD Unavailable Cata Nicole MD Unavailable Encounter Details Date Type Department Care Team (Late st Contact Info) Description 01/09/2023 Orders Only [facility] [address] [place] [address] Scanning, Provider Social History Tobacco Use Types Packs/Day Years Used Date Smoking Tobacco: Never Smokeless Tobacco: Never Alcohol Use Standard Drinks/Week Comments No 0 (1 standard drink = 0.6 oz pur e alcohol) PHQ-2 Answer Date Recorded PHQ-2 Total Score (If total score is 3 or more points, staff should administer the PHQ-9) 0 02/14/2022 Comments No Sex and Gender Information Value Date Recorded Sex Assigned at Not on file Legal Sex Female 12:21 PM HOME CARE PHYSICAL THERAPIST Gender Identity Not on file Sexual Orientation Straight 05/27/2024 1: 34 PM CDT documented as of this encounter Plan of Treatment Not on file documented as of this encounter Procedures Procedure Name Priority Date/Time Associated Diagnosis Comments SCAN - LABS 01/09/2023 documented in this encounter Results * SCAN - LABS (01/09/2023) us Provider Scanning Final Result documented in this encounter Visit Diagnoses Not on filedocumented in this encounter Additional Health Concerns Infection Onset Date Last Indicated Resolved Time COVID: Suspected 10/29/2023 10/29/2023 10/29/2023 6:54 PM HOME CARE PHYSICAL THERAPIST COVID: Suspected 11/20/2023 11/20/2023 11/20/2023 1:14 PM HOME CARE PHYSICAL THERAPIST COVID: Suspected 03/14/2024 03/14/2024 03/14/2024 12:54 PM CDT COVID: Suspected 11/26/2024 11/26/2024 11/26/2024 7:03 PM HOME CARE PHYSICAL THERAPIST Influenza, adult 11/26/2024 11/26/2024 12/03/2024 3:07 AM HOME CARE PHYSICAL THERAPIST documented as of this encounter Care Teams Manufacturing Operator Relationship Specialty Start Date End Date Anival Bañuelos MD [address] [place] [address] PCP - General 01/28/17 Zacarias Garcia MD [address] [place] [address] Referring Physician Orthopedic Surgery 05/28/18 Christian Banegas MD [address] [facility] [place] [address] Consulting Physician Endocrinology 05/31/19 Jesusita Montiel MD [address] [place] [address] Cannery Worker Obstetrics and Gynecology 02/05/21 [place] [id number] [address] Consulting Physician Rheumatology 02/14/22 documented as of this encounter
--- OUTSIDE RECORDS SUMMARY | 2024-12-12 13:56 | XMS_ITS | Referral Summary ---
Author Organization [facility] [address] Address [address] [place] [address] Phone Care Team Providers Care Manager Pest Name Role Phone Anival Bañuelos MD Primary Care Provider [phone] Zacarias Garcia MD Unavailable [phone] Christian Banegas MD Unavailable [phone] Jesusita Montiel MD Unavailable Cata Nicole MD Unavailable Encounters Date Type Department Care Team Description 11/26/2024 6:45 PM INSTRUMENT OPERATOR Office Visit [facility] Care at [address] [address] Naty Stewart NP Acute cough (Primary Dx) 10/29/2024 Telephone [facility] [address] [place] [address] Anival Bañuelos MD 10/25/2024 Telephone [facility] [address] [place] [address] Janel Alexander, RN 10/22/2024 Telephone [facility] [address] [place] [address] Sonya Wilson RN 10/21/2024 Telephone [facility] [address] [place] [address] Janel Alexander, ALVINO 10/21/2024 11:20 AM INSTRUMENT OPERATOR [facility] [address] [place] [address] Morbid obesity with BMI of 40.0-44.9, adult (HCC); Benign essential HTN 10/21/2024 10:45 AM INSTRUMENT OPERATOR Office Visit [facility] [address] [place] [address] Anival Bañuelos MD Morbid obesity with BMI of 40.0-44.9, adult (HCC) (Primary Dx); Benign essential HTN 10/21/2024 Telephone [facility] [address] [place] [address] Anival Bañuelos MD Hypertension 10/06/2024 Telephone [facility] [address] [place] [address] Janel Alexander, RN 09/27/2024 Telephone [facility] [address] [place] [address] Anival Bañuelos MD 09/22/2024 8:10 AM INSTRUMENT OPERATOR - 09/22/2024 11:59 PM INSTRUMENT OPERATOR Hospital Encounter [facility] [address] [place] [address] Rash Discharge Disposition: Discharge to home or self care 09/22/2024 8:00 AM INSTRUMENT OPERATOR Office Visit [facility] [address] [place] [address] Anival Bañuelos MD Rash (Primary Dx); Melina albicans infection 09/20/2024 Telephone [facility] [address] [place] [address] Anival Bañeulos MD from Last 3 Months Allergies Active Allergy Reactions Criticality Noted Date Comments Gatifloxacin Nausea & Vomiting Low Medications triamcinolone (KENALOG) 0.1 % ointment Apply topically 2 (two) times a day as needed for irritation or rash 60 g 05/21/20 22 Active levothyroxine (SYNTHROID) 100 mcg tablet Take 1 tablet (100 mcg total) by mouth daily before breakfast 30 tablet 2 03/26/20 24 Active SUMAtriptan (Imitrex) 50 mg tablet Take 1 tablet (50 mg total) by mouth once as needed for migraine for up to 1 dose 9 tablet 2 08/03/20 24 Active naproxen (NAPROSYN) 500 mg tablet TAKE 1 TABLET (500 MG TOTAL) BY MOUTH 2 (TWO) TIMES A DAY NEEDED FOR PAIN (PAIN) 60 tablet 1 08/12/20 24 Active ketoconazole (NIZORAL) 2 % cream Apply topically daily 30 g 3 09/01/20 24 Active nystatin cream Apply topically 2 (two) times a day 30 g 3 09/22/20 24 025 Active triamterene-hy droCHLOROthiaz juan 37.5-25 mg per tablet/capsule PRN 20 tablet/capsu le 10/21/20 24 Active lisinopriL (PRINIVIL,ZEST RIL) 5 mg tabletIndicati ons:Benign essential HTN TAKE ONE TABLET BY MOUTH DAILY 30 tablet 3 11/08/19 25 Active albuterol HFA (PROVENTIL HFA,VENTOLIN HFA,PROAIR HFA) 90 mcg/actuation inhaler Inhale 2 puffs every 6 (six) hours as needed for wheezing 1 each 11/26/19 25 026 Active FLUoxetine (PROzac) 20 mg capsuleIndicat ions:Anxiety TAKE ONE CAPSULE BY MOUTH DAILY 30 capsule 3 12/08/19 25 Active FLUoxetine (PROzac) 20 mg capsule TAKE ONE CAPSULE BY MOUTH DAILY 30 capsule 3 07/26/20 24 025 Discontinued Active Problems Problem Noted Date Diagnosed Date Morbid obesity with BMI of 40.0-44.9, adult 09/27 Melina albicans infection 09/22/2024 Assessment & Plan (09/22/2024 10:35 AM INSTRUMENT OPERATOR): Etiology / pathogenesis was discussed today . Keep the area clean and dry Ok to do nystatin cream am and topical hydrocotisone evening Ok to do dilfucan 150 mg po times one one week apart Routine physical examination 08/03/2024 Assessment & Plan (08/04/2024 3:49 PM CDT): IMMUNIZATIONS WERE REVIEWED PSA : CHRONIC OFF OF DMARDS AT THIS TIME FOLLOWED BY REGUALR CRP AND ALSO ESR ESSENTIAL HTN GOAL BP IS 130/80 OR UNDER YURIY : CHRONIC AND STABLE LEVEL 3 OBESITY CHRONIC WITH CO MORBISIDITES ACQUIRED HYPOTHYORIDISM : TSH IS NL THYROID NODULE WITH NEG TWO BIOPSY FROM DR LUQUE NO NAROCTIC / SUBSTANCE ABUSE NO COGINTIVE DECLINE Acute left ankle pain 03/27/2024 Assessment & Plan (03/27/2024 10:54 AM CDT): SHE HAS GOOD MOBILITY SOME TENDERNESS TO THE LEFT PERONEAL AREA LETS RPT AN X RAY OF THE LEFT ANKLE Benign essential HTN 02/28/2024 Assessment & Plan (10/21/2024 11:18 AM INSTRUMENT OPERATOR): GOAL BP IS 130/80 OR LESS CONTINUE LISINOPRIL AT 5 MG PO QDAY ADD MAXIZDE HALF PILL PRN CBC BMP PRO BNP TODFAY Assessment & Plan (03/27/2024 10:54 AM CDT): STATUS STABLE GOAL 130/80 OR LESS CONTINUE LISINOPRIL 5 MG PO QDAY Assessment & Plan (02/28/2024 3:59 PM CDT): RPT BP AT THE OFFICE WAS ELEVATED DISCUSSED GOAL IS 130/80 OR LESS LOW NA DIET PT HAS A BP CARLOS E AT HOME SHE WILL CHECK HER BP AT HOME AM AND PM AND WILL CALL WITH READINGS TO THE OFFICE START LISINOPRIL 5 MG PO QDAY DISCUSSED MECHANISM OF ACTION AND ALSO SIDE EFFECTS OF THE MEDS Bronchitis 10/29/2023 Assessment & Plan (10/29/2023 7:03 PM INSTRUMENT OPERATOR): URI symptoms for 2 weeks. Tested negative for COVID, FLU, and RSV in office today. Intermittent expiratory wheezing, lungs otherwise clear, no accessory muscle use. nasal congestion on exam but no sinus tenderness. Vitals stable, sating 95%b on RA. Likely viral bronchitis given that she took 5 days of augmentin with no improvement. Order CXR to r/o PNA or other cardiopulmonary changes. Will Rx promethazine DM as instructed. Discussed antihistamine use (zyrtec/dennis) to help dry up mucous. Tylenol/Ibuprofen as needed for pain. Increase fluids (water) Cool mist humidifier at night Use sinus rinses to help flush bacteria and help with congestion. Encouraged honey, marshmallows, gelatin, or chloraseptic to help coat throat. Call with any worsening or persistent symptoms. ADDENDUM: CXR showed RML PNA, will Rx doxycycline as instructed and repeat CXR in 4 weeks. COVID 07/26/2021 Viral URI with cough 01/02/2021 Assessment & Plan (01/02/2021 3:06 PM INSTRUMENT OPERATOR): Patient presents with headache, cough, congestion and low grade fever x 4 days. She had rapid testing for both COVID and flu done which were negative. Patient's symptoms and exam findings are viral in nature. She was encouraged to rest, increase fluids, use inhaler for cough/shortness of breath as needed, she can use flonase and Mucinex for congestion. She will use tylenol for pain or fevers. She will remain off work until symptoms are improving and fever free x 24 hours. She is to call with any worsening or persistent symptoms. Herpes zoster without complication 11/08/2020 Assessment & Plan (11/08/2020 9:38 AM INSTRUMENT OPERATOR): Pt started with tingling and then pain in her right outer palm. She then noticed later on in the day that she had developed a few small red bumps. Then on Friday the pain was worse in her right outer palm, and then she also noticed she had a low grade fever around 99.7 with a headache and some nausea. Pt has already had covid-19 virus back around thanksgiving. I will treat her today with valtrex 1 gram TID x 7 days. I have given her note to be off work if she continues to feel not well over the next few days, with a return date of Friday since Friday is a holiday for them. If she wishes to return sooner, this is fine, but I have advised that she wear long sleeves and wear a bandage over the rash area. She verbalizes agreement. Advised that she can use Tylenol or Ibuprofen for headaches, aches. Advised to stay hydrated. 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 Patient is mildly hypothyroid on thyroid hormone supplementation. Ultrasound-guided fine-needle aspiration biopsy demonstrated atypia of undetermined significance, [place] category lll. Patient is exhibiting no local compressive symptoms. Prior to definitive treatment recommendations, I have contacted the pathology department and asked them to review the specimen to see if molecular testing can be performed. Routine physical examination 05/28/2018 Anxiety 06/23/2017 Migraine without aura and wi thout status migrainosus, not intractable 04/07/2017 Moderate single current epis ode of major depressive disorder 04/07/2017 PSA (psoriatic arthritis) 01/26/2009 Assessment & Plan (03/27/2024 10:55 AM CDT): CURRENTLY OFF OF DMARDS ARRANGE CRP AND ESR FOR INFLAMMATORY MARKERS Chronic pain 01/26/2009 Overview (08/23/2024): Knee pain secondary to PsA Resolved Problems Problem Noted Date Diagnosed Date Resolved Date Fever 07/27/2021 10/29/2023 Assessment & Plan (07/27/2021 4:46 PM CDT): Fever along with body aches, headache, sore throat, cough, nausea, and SOB for about 9 days now. She was tested multiple times for covid-19 and has been negative. Flu A and B today = negative Strep today = negative We will get a chest x-ray today and labs, and call her with results on Friday. For now she will start augmentin 875mg BID x 10 days, albuterol inhaler for SOB and cough, and tessalon perles for cough. She can alternate tylenol and motrin for fever and headache. She can continue on flonase and mucinex PRN. She will increase fluids and rest over the weekend. I am writing her to be off work all next week unless she is feeling better. She must be fever free for at least 24 hours before returning to work. Immunizations Immunization Administration Dates Next Due Influenza, Quadrivalent, Delphine l Culture-based MDCK, Preservative Free, Antibiotic Free, Intramuscular 08/04/2020 Influenza, Trivalent, IM (MDV) 09/14/2013 Influenza, Unspecified 08/25/2024,2023(Deferred: Patient Refused),08/08/2023,08/04/2020 Pfizer SARS-CoV-2 Monovalent Vaccination (12+ Yrs) PURPLE 12/22/2020,12/01/2020 Tdap 01/23/2024,09/14/2013,09/14/2013 Social History Tobacco Use Types Packs/Day Years Used Date Smoking Tobacco: Never Smokeless Tobacco: Never Tobacco Cessation:Counseling Given: Not Answered Alcohol Use Standard Drinks/Week Comments No 0 (1 standard drink = 0.6 oz pur e alcohol) AUDIT-C Answer Date Recorded Q1: How often do you have a drink containing alcohol? Never 05/27/2024 Q2: How many drinks containi ng alcohol do you have on a typical day when you are drinking? Patient does not drink Q3: How often do you have si x or more drinks on one occasion? Never 05/27/2024 PHQ-2 Answer Date Recorded PHQ-2 Total Score (If total score is 3 or more points, staff should administer the PHQ-9) 0 08/03/2024 Comments No Sex and Gender Information Value Date Recorded Sex Assigned at Not on file Legal Sex Female 12:21 PM INSTRUMENT OPERATOR Gender Identity Not on file Sexual Orientation Straight 05/27/2024 1: 34 PM CDT Occupation Industry Job Start Date Job End Date Not on file Not on file Not on file Not on file Last Filed Vital Signs Vital Sign Reading Time Taken Comments Blood Pressure 124/74 11/26/2024 6:46 PM INSTRUMENT OPERATOR Pulse 93 11/26/2024 6:46 PM INSTRUMENT OPERATOR Temperature 36.8 C (98.3 F) 11/26/2024 6:46 PM INSTRUMENT OPERATOR Respiratory Rate 20 11/26/2024 6:46 PM INSTRUMENT OPERATOR Oxygen Saturation 98% 11/26/2024 6:46 PM INSTRUMENT OPERATOR Inhaled Oxygen Concentration - - Weight 95.7 kg (211 lb) 11/26/2024 6:46 PM INSTRUMENT OPERATOR Height 152.4 cm (5') 11/26/2024 6:46 PM INSTRUMENT OPERATOR Body Mass Index 41.21 11/26/2024 6:46 PM INSTRUMENT OPERATOR Plan of Treatment Not on file Procedures Procedure Name Priority Date/Time Associated Diagnosis Comments POC INFLUENZA A/B, COVID-19 ANTIGEN Routine 11/26/2024 7:01 PM INSTRUMENT OPERATOR Acute cough IRON PROFILE W/ IBC Routine 11/10/2024 9 :21 AM INSTRUMENT OPERATOR Anemia, unspecified type CBC WITH AUTO DIFFERENTIAL Routine 11/10/2024 9:21 AM INSTRUMENT OPERATOR Anemia, unspecified type EGFR Routine 10/21/2024 11:18 AM INSTRUMENT OPERATOR Morbid obesity with BMI of 40.0-44.9, adult (HCC) Benign essential HTN DIFFERENTIAL AUTO Routine 10/21/2024 11: 18 AM INSTRUMENT OPERATOR Morbid obesity with BMI of 40.0-44.9, adult (HCC) Benign essential HTN PRO B-TYPE NATRIURETIC PEPTIDE Routine 10/21/2024 11:18 AM INSTRUMENT OPERATOR Morbid obesity with BMI of 40.0-44.9, adult (HCC) Benign essential HTN CBC WITH AUTO DIFFERENTIAL Routine 10/21/2024 11:18 AM INSTRUMENT OPERATOR Morbid obesity with BMI of 40.0-44.9, adult (HCC) Benign essential HTN BASIC METABOLIC PANEL Routine 10/21/2024 11:18 AM INSTRUMENT OPERATOR Morbid obesity with BMI of 40.0-44.9, adult (HCC) Benign essential HTN MYCOLOGY (FUNGAL) CULTURE Routine 09/22/2024 8:10 AM INSTRUMENT OPERATOR Rash SCREENING MAMMOGRAM BILATERAL W RAMIREZ Schedule Routine, Read Routine (OP Routine) 04/09/2024 3:33 PM CDT Screening mammogram for breast cancer from Last 3 Months or Most Recently Relevant to Health Maintenance Results * (ABNORMAL) POC Influenza A/B, COVID-19 antigen (11/26/2024 7:01 PM INSTRUMENT OPERATOR) Influenza A Ag, POC Positive(A) Negative [facility] Influenza B Ag, POC Negative Negative [facility] COVID-19 Ag POC Presumptive Negative Presumptive Negative, Invalid [facility] Nasal 11/26/2024 7:01 PM INSTRUMENT OPERATOR us Naty Stewart NP POINT OF CARE TEST ORDERABLES F inal Result Performing Organization Address City/State/[facility] Co de Phone Number [facility] [address] [place] [address] * Iron profile w/ IBC (11/10/2024 9:21 AM INSTRUMENT OPERATOR) Iron 75 40 - 190 mcg/dL [facility] TIBC 303 250 - 450 mcg/dL (calc) [facility] Iron saturation 25 16 - 45 % (calc) [facility] Blood 11/10/2024 9:21 AM INSTRUMENT OPERATOR 11/11/2024 6:04 AM INSTRUMENT OPERATOR Narrative [facility] - 11/11/2024 8:25 AM INSTRUMENT OPERATOR FASTING:YES FASTING: YES us Anival Bañuelos MD LAB BLOOD ORDERABLES Final Result [facility] [address] [address] * (ABNORMAL) CBC with auto differential (11/10/2024 9:21 AM INSTRUMENT OPERATOR) WBC 5.4 3.8 - 10.8 Thousand/u L [facility] RBC, POC 4.31 3.80 - 5.10 Million/uL [facility] Hgb 11.9 11.7 - 15.5 g/dL [facility] Hct 37.4 35.0 - 45.0 % [facility] MCV 86.8 80.0 - 100.0 fL [facility] MCH 27.6 27.0 - 33.0 pg [facility] MCHC 31.8(L) 32.0 - 36.0 g/dL [facility] Comment: For adults, a slight decrease in the calculated MCHC value (in the range of 30 to 32 g/dL) is most likely not clinically significant; however, it should be interpreted with caution in correlation with other red cell parameters and the patient's clinical condition. Rdw 14.4 11.0 - 15.0 % [facility] Platelets 282 140 - 400 Thousand/u L [facility] MPV 10.9 7.5 - 12.5 fL [facility] Neutrophils, abs 3,267 1,500 - 7,800 cells/uL [facility] Lymphocytes, abs 1,528 850 - 3,900 cells/uL [facility] Monocyte abs 356 200 - 950 cells/uL [facility] Eosinophils, abs 200 15 - 500 cells/uL [facility] Basophils, abs 49 0 - 200 cells/uL [facility] Neutrophils 60.5 % [facility] Lymphocyte pct 28.3 % [facility] Monocytes 6.6 % [facility] Eosinophils 3.7 % [facility] Basophils 0.9 % [facility] Blood 11/10/2024 9:21 AM INSTRUMENT OPERATOR 11/11/2024 6:04 AM INSTRUMENT OPERATOR Narrative [facility] - 11/11/2024 8:25 AM INSTRUMENT OPERATOR FASTING:YES FASTING: YES Anival Bañuelos MD LAB BLOOD ORDERABLES Final Result Performing Organization Address City/[facility]/ZIP Co de Phone Number [facility] [address] [address] * eGFR (10/21/2024 11:18 AM INSTRUMENT OPERATOR) eGFR >90 >=60 mL/min/1. 73 m2 Comment: Interpretive Data Reference Interval Normal >/= 90 mL/min/1.73m2 Mildly decreased* 60 - 89 mL/min/1.73m2 Mildly to moderately decreased 45 - 59 mL/min/1.73m2 Moderately to severely decreased 30 - 44 mL/min/1.73m2 Severely decreased 15 - 29 mL/min/1.73m2 Kidney Failure < 15 mL/min/1.73m2 *Relative to young adult level Estimated glomerular filtration rate is determined by the 2020 CKD-EPI equation recommended by the National Kidney Foundation (A Unifying Approach to GFR Estimation: Recommendations of the NKF-ASK Task Force on Reassessing the Inclusion of Race in Diagnosing Kidney Disease, JASN 2020). The CKD-EPI equation should not be used for patients with unstable renal function and has not been validated in children and those over 70. Current interpretive data was last reviewed 2021. Testing performed by: [facility], [address] [place] [address]., [id number] Blood 10/21/2024 11:1 8 AM INSTRUMENT OPERATOR 10/21/2024 7:49 PM INSTRUMENT OPERATOR us Anival Bañuelos MD LAB BLOOD ORDERABLES Final Result Performing Organization Address City/[facility]/ZIP Co de Phone Number MARIANNA [address] [facility] Department [place] [address] * Differential, auto (10/21/2024 11:18 AM INSTRUMENT OPERATOR) Neutrophil abs 3.9 1.5 - 6.5 K/cumm Comment:Testing performed by : [facility], [address] [place] [address]., [id number] Imm gran abs 0.0 0.0 - 0.1 K/cumm CERNER CH Comment:Testing performed by : [facility], [address] [place] [address]., [address] Lymphocyte abs 1.4 0.8 - 3.3 K/cumm CERNER CH Comment:Testing performed by : [facility], [address] [place] [address]., [id number] Monocyte abs 0.4 0.2 - 0.8 K/cumm CERNER CH Comment:Testing performed by : [address] [address] Eosinophil abs 0.2 0.0 - 0.5 K/cumm CERNER CH Comment:Testing performed by : [address], [address] Basophil abs 0.1 0.0 - 0.1 K/cumm CERNER CH Comment:Testing performed by : [address] [address] Neutrophil pct 65.5 % CERNER CH Comment: Interpretive Data Percent cell count reference ranges are not reported, since discordance with absolute values may lead to misinterpretation of CBC data. Current Interpretive Data was last revised on 2018. Testing performed by: [address] [address] Imm gran pct 0.3 % CERNER CH Comment: Interpretive Data Percent cell count reference ranges are not reported, since discordance with absolute values may lead to misinterpretation of CBC data. Current Interpretive Data was last revised on 2018. Testing performed by: [address] [address] Lymphocyte pct 23.8 % CERNER CH Comment: Interpretive Data Percent cell count reference ranges are not reported, since discordance with absolute values may lead to misinterpretation of CBC data. Current Interpretive Data was last revised on 2018. Testing performed by: [address], [address] Monocyte pct 6.1 % CERNER CH Comment: Interpretive Data Percent cell count reference ranges are not reported, since discordance with absolute values may lead to misinterpretation of CBC data. Current Interpretive Data was last revised on 2018. Testing performed by: [facility], [address] [place] [address]., [address] Eosinophil pct 3.5 % MARIANNA Comment: Interpretive Data Percent cell count reference ranges are not reported, since discordance with absolute values may lead to misinterpretation of CBC data. Current Interpretive Data was last revised on 2018. Testing performed by: [facility], [address] [place] [address]., [address] Basophil pct 0.8 % MARIANNA Comment: Interpretive Data Percent cell count reference ranges are not reported, since discordance with absolute values may lead to misinterpretation of CBC data. Current Interpretive Data was last revised on 2018. Testing performed by: [facility], [address] [place] [address]., [id number] Blood 10/21/2024 11:1 8 AM INSTRUMENT OPERATOR 10/21/2024 7:27 PM INSTRUMENT OPERATOR us Anival Bañuelos MD LAB BLOOD ORDERABLES Final Result MARIANNA [address] Department [place] [address] * Pro B-type natriuretic peptide (10/21/2024 11:18 AM INSTRUMENT OPERATOR) NT-proBNP 260 <=300 pg/mL Comment: Interpretive Comments: A. Dyspnea in Acute Care Setting All Ages: < 300 pg/ml, acute heart failure unlikely. < 50 yrs: 300 - 450 pg/ml, further investigation warranted. > 450 pg/ml, acute heart failure likely. 50 - 74 yrs: 300 - 900 pg/ml, further investigation warranted. > 900 pg/ml, acute heart failure likely . > or = 75 yrs: 450 - 1800 pg/ml, further investigation warranted. > 1800 pg/ml, acute heart failure likely. B. Non-acute Setting < 75 yrs < 125 pg/ml, rules out heart failure. > or = 125 pg/ml, further investigation warranted. > or = 75 yrs < 450 pg/ml, rules out heart failure. > or = 450 pg/ml, further investigation warranted. - Knowledge of each individual patient's NT-proBNP range may be more useful than using similar cut-points for every patient. Please note that marked elevations in NT-proBNP levels may be observed in state other than Left Ventricular Congestive Failure, including: acute coronary syndromes, right heart strain/failure (including pulmonary embolism and cor pulmonale), critical illness, renal failure, as well as advanced age. - References: 1. Sherita PETERS et.al. Eur Heart J. 2006:27:330-337. 2. Maria Eugenia RW, Tony NAIDU. J. AM Kanchan Cardiol: Cardiovasc Imag. 2009;2: 216- 225. Interpretive Data Last Revised Date: 2018. Testing performed by: [address] [id number] Blood 10/21/2024 11:1 8 AM INSTRUMENT OPERATOR 10/21/2024 7:27 PM INSTRUMENT OPERATOR Anival Bañuelos MD LAB BLOOD ORDERABLES Final Result [address] Department [place] [address] * (ABNORMAL) CBC with auto differential (10/21/2024 11:18 AM INSTRUMENT OPERATOR) Pathologist [facility] WBC 6.0 3.8 - 9.9 K/cumm Comment:Testing performed by : [address] [address] Hgb 10.8(L) 11.9 - 15.5 g/dL MARIANNA Comment:Testing performed by : [address] [address] Hct 34.6(L) 35.6 - 45.5 % MARIANNA Comment:Testing performed by : [address] [address] Plt 305 150 - 400 K/cumm MARIANNA Comment:Testing performed by : [address], [address] MPV 10.7 9.1 - 12.3 fL MARIANNA Comment:Testing performed by : [facility], [address] [place] [address]., [address] RBC 3.93 3.90 - 5.20 M/cumm CERNER CH Comment:Testing performed by : [facility], [address] [place] [address]., [address] MCV 88.0 81.3 - 96.4 fL [facility] Comment:Testing performed by : [address], [address] MCH 27.5 27.1 - 33.3 pg CERNER Comment:Testing performed by : [facility], [address] [place] [address], [address] MCHC 31.2(L) 32.3 - 35.7 g/dL STEVIENER Comment:Testing performed by : [address], [address] RDW CV 13.8 11.1 - 14.9 % [facility] [facility] Comment:Testing performed by : [address], [address] RDW SD 44.7 35.7 - 48.[address] [facility] Comment:Testing performed by : [address], [address] NRBC abs 0.00 0.00 - 0.01 K/cumm [facility] Comment:Testing performed by : [address], [address] Blood 10/21/2024 11:1 8 AM INSTRUMENT OPERATOR 10/21/2024 7:27 PM INSTRUMENT OPERATOR Anival Bañuelos MD LAB BLOOD ORDERABLES Final Result [address] Department [place] [address] * Basic metabolic panel (10/21/2024 11:18 AM INSTRUMENT OPERATOR) Sodium 145 135 - 145 mmol/L Comment:Testing performed by : [address], [address] Potassium, pl 3.9 3.3 - 4.9 mmol/L [facility] Comment:Testing performed by : [facility] [address] [place] [address]., [address] Chloride 109 97 - 110 mmol/L [facility] Comment:Testing performed by : [address] [address] CO2 24 22 - 32 mmol/L [facility] Comment:Testing performed by : [address] [address] Anion gap 12 2 - 15 mmol/L [facility] Comment:Testing performed by : [address], [address] BUN 19 6 - 25 mg/dL [facility] Comment:Testing performed by : [address], [address] Creatinine 0.74 0.60 - 1.10 mg/dL [facility] Comment:Testing performed by : [address], [address] Glucose 83 70 - 199 mg/dL [facility] Comment: Interpretive Data Fasting glucose >/= 126 mg/dl is diagnostic for diabetes. Fasting is defined as no caloric intake for at least 8 hours. Fasting glucose between 100 mg/dl to 125 mg/dl is diagnostic of prediabetes. In a patient with classic symptoms of hyperglycemia or hyperglycemic crisis, a random glucose >/= 200 mg/dl is diagnostic for diabetes. In the absence of unequivocal hyperglycemia, results should be confirmed by repeat testing. The classification and Diagnosis of Diabetes Diabetes Care 2021; 46: S19-S40. Current interpretive data was last revised 2022. Testing performed by: [address] [address] Calcium 8.6 8.5 - 10.3 mg/dL [facility] Comment:Testing performed by : [address] [address] Blood 10/21/2024 11:1 8 AM INSTRUMENT OPERATOR 10/21/2024 7:27 PM INSTRUMENT OPERATOR Anival Bañuelos MD LAB BLOOD ORDERABLES Final Result [address] Department [place] [address] * (ABNORMAL) Mycology (fungal) culture Drainage Breast (09/22/2024 8:10 AM INSTRUMENT OPERATOR) Report Final Report: No growth of fungus * * * * * * * * * * * * * * * * * * * * Few Streptococcus pyogenes (Group A Streptococci) Streptococcus pyogenes is uniformly susceptible to beta-lactam antibiotics and vancomycin. Routine susceptibility testing is not performed. (.) Comment:Testing performed by : [facility], [address] [place]., [address] Organism STREPTOCOCCUS PYOGENES (GROUP A STREPTOCOCCI) [facility] Drainage (Breast) 09/22/2024 8:10 AM INSTRUMENT OPERATOR 09/22/2024 2:30 PM INSTRUMENT OPERATOR Narrative [facility] - 10/21/2024 8:09 AM INSTRUMENT OPERATOR Under breasts Specimen received on an ESwab. Testing performed by [facility] ([phone]). Anival Bañuelos MD LAB MICROBIOLOGY - GENERAL ORDERABLES Final Result [facility] [address] Department [place] [address] * Screening Mammogram Bilateral W Ramirez (04/09/2024 3:33 PM CDT) Anatomical Region Laterality Modality Breast Bilateral Mammography 04/09/2024 3:40 PM CDT Impressions 04/09/2024 3:40 PM CDT There is no mammographic evidence of malignancy. A 1 year screening mammogram is recommended. BI-RADS: 1 - Negative. The patient has been or will be contacted. The patient will be entered into a reminder system with a target due date of 1 year for her next mammogram. Electronically signed by: Johan Aleman 04/09/2024 3:40 PM CDT EXAMINATION: SCREENING MAMMOGRAM BILATERAL W RAMIREZ ORDERING HEALTHCARE PROVIDER: ANIVAL BAÑUELOS HISTORY: Routine screening mammography. COMPARISON: 01/06/2023, 10/11/2016, 10/07/2016 TECHNIQUE: CC and MLO views of the bilateral breasts were obtained with digital technique using breast tomosynthesis with C view. Computer aided detection was utilized. FINDINGS: DENSITY: There are scattered fibroglandular elements in the bilateral breasts. BREASTS: There are no suspicious masses, suspicious calcifications, or other suspicious findings in either breast. There has been no suspicious interval change. Anival Bañuelos MD IMG MAMMO PROCEDURES Final Result from Last 3 Months or Most Recently Relevant to Health Maintenance Insurance 0 (Work) [address] [id number] Care Teams Manager Pest Relationship Specialty Start Date End Date Anival Bañuelos MD [address] [place] [address] PCP - General 01/28/17 Zacarias Garcia MD [address] [place] [address] Referring Physician Orthopedic Surgery 05/28/18 Christian Banegas MD [address] [place] [address] [place] [address] Consulting Physician Endocrinology 05/31/19 Jesusita Montiel MD 1 [facility] [place] [address] Wildlife Protector Obstetrics and Gynecology 02/05/21 [place] [id number] [address] Consulting Physician Rheumatology 02/14/22
--- OUTSIDE RECORDS SUMMARY | 2024-12-12 13:56 | XMS_ITS | Encounter Summary ---
Author Organization [facility] Address [address] [place] [address] Phone Care Team Providers Care Battery Hand Name Role Phone Edda Anival Siddiqui MD Primary Care Provider [phone] Zacarias Garcia MD Unavailable [phone] Christian Banegas MD Unavailable [phone] Jesusita Montiel MD Unavailable Cata Nicole MD Unavailable Encounter Details Date Type Department Care Team (Late st Contact Info) Description 02/26/2023 Orders Only [facility] [address] [place] [address] Scanning, Provider Social History Tobacco [...] on file 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 Sex 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 Gender Identity Not on file Sexual Orientation Straight 05/27/2024 1: 34 PM CDT documented as of this encounter Plan of Treatment Not on file documented as of this encounter Procedures Procedure Name Priority Date/Time Associated Diagnosis Comments SCAN - RADIOLOGY/IMAGING 02/26/2023 documented in this encounter Results * SCAN - RADIOLOGY/IMAGING (02/26/2023) Anatomical Region Laterality Modality Other us Provider Scanning Final Result documented in this encounter Visit Diagnoses Not on filedocumented in this encounter Additional Health Concerns Infection Onset Date Last Indicated Resolved Time COVID: Suspected 10/29/2023 10/29/2023 10/29/2023 6:54 PM WATER TAXI CAPTAIN COVID: Suspected 11/20/2023 11/20/2023 11/20/2023 1:14 PM WATER TAXI CAPTAIN COVID: Suspected 03/14/2024 03/14/2024 03/14/2024 12:54 PM CDT COVID: Suspected 11/26/2024 11/26/2024 11/26/2024 7:03 PM WATER TAXI CAPTAIN Influenza, adult 11/26/2024 11/26/2024 12/03/2024 3:07 AM WATER TAXI CAPTAIN documented as of this encounter Care Teams Battery Hand Relationship Specialty Start Date End Date Anival Bañuelos MD [address] [place] [address] PCP - General 01/28/17 Zacarias Garcia MD [address] [place] [address] Referring Physician Orthopedic Surgery 05/28/18 Christian Banegas MD [address] [facility] [address] [place] [address] Consulting Physician Endocrinology 05/31/19 Jesusita Montiel MD [address] [place] [address] Medical Physiologist Obstetrics and Gynecology 02/05/21 [place] [address] [address] Consulting Physician Rheumatology 02/14/22 documented as of this encounter
--- OUTSIDE RECORDS SUMMARY | 2024-12-12 13:56 | XMS_ITS | Encounter Summary ---
Author Organization [facility] Healthcare Address [address] [place] [address] Care Team Providers Care Career Coach Name Role Phone Edda, Anival Siddiqui MD Primary Care Provider [phone] Zacarias Garcia MD Unavailable [phone] Christian Banegas MD Unavailable [phone] Jesusita Montiel MD Unavailable [phone] Cata Nicoel MD Unavailable Encounter Details Date Type Department Care Team (Late st Contact Info) Description 07/16/2024 Orders Only [facility] [address] [place] [address] Scanning, Provider Social History Tobacco Use Types [...] points, staff should administer the PHQ-9) 0 06/04/2024 Comments No Sex and Gender Information Value Date Recorded Sex Assigned at Not on file 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 Sex 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 Gender Identity Not on file Sexual Orientation Straight 05/27/2024 1: 34 PM CDT documented as of this encounter Plan of Treatment Not on file documented as of this encounter Procedures Procedure Name Priority Date/Time Associated Diagnosis Comments SCAN - RADIOLOGY/IMAGING 07/16/2024 documented in this encounter Results * SCAN - RADIOLOGY/IMAGING (07/16/2024) Anatomical Region Laterality Modality Other us Provider Scanning Edited Result - Final documented in this encounter Visit Diagnoses Not on filedocumented in this encounter Additional Health Concerns Infection Onset Date Last Indicated Resolved Time COVID: Suspected 11/26/2024 11/26/2024 11/26/2024 7:03 PM FISHING ROD MECHANIC Influenza, adult 11/26/2024 11/26/2024 12/03/2024 3:07 AM FISHING ROD MECHANIC documented as of this encounter Care Teams Career Coach Relationship Specialty Start Date End Date Anival Bañuelos MD [address] [place] [address] PCP - General 01/28/17 Zacarias Garcia MD [address] [place] [address] Referring Physician Orthopedic Surgery 05/28/18 Christian Banegas MD [address] [facility] [address] [place] [address] Consulting Physician Endocrinology 05/31/19 Jesusita Montiel MD [address] [place] [address] Coke Handling Supervisor Obstetrics and Gynecology 02/05/21 [place] [address] [address] Consulting Physician Rheumatology 02/14/22 documented as of this encounter
--- OUTSIDE RECORDS SUMMARY | 2024-12-12 13:56 | XMS_ITS | Encounter Summary ---
Author Organization [facility] Address [address] [place] [address] Phone Care Team Providers Care Steam Station Supervisor Name Role Phone Edda Anival Siddiqui MD Primary Care Provider [phone] Zacarias Garcia MD Unavailable [phone] Christian Banegas MD Unavailable [phone] Jesusita Montiel MD Unavailable Cata Nicole MD Unavailable Encounter Details Date Type Department Care Team (Late st Contact Info) Description 11/06/2022 Orders Only [facility] [address] [place] [address] Scanning, Provider Social History Tobacco [...] on file Legal Sex Female 12:21 PM COAT PADDER Gender Identity Not on file Sexual Orientation Straight 05/27/2024 1: 34 PM CDT documented as of this encounter Plan of Treatment Not on file documented as of this encounter Procedures Procedure Name Priority Date/Time Associated Diagnosis Comments SCAN - LABS 11/06/2022 documented in this encounter Results * SCAN - LABS (11/06/2022) us Provider Scanning Final Result documented in this encounter Visit Diagnoses Not on filedocumented in this encounter Additional Health Concerns Infection Onset Date Last Indicated Resolved Time COVID: Suspected 10/29/2023 10/29/2023 10/29/2023 6:54 PM COAT PADDER COVID: Suspected 11/20/2023 11/20/2023 11/20/2023 1:14 PM COAT PADDER COVID: Suspected 03/14/2024 03/14/2024 03/14/2024 12:54 PM CDT COVID: Suspected 11/26/2024 11/26/2024 11/26/2024 7:03 PM COAT PADDER Influenza, adult 11/26/2024 11/26/2024 12/03/2024 3:07 AM COAT PADDER documented as of this encounter Care Teams Steam Station Supervisor Relationship Specialty Start Date End Date Anival Bañuelos MD [address] [place] [address] PCP - General 01/28/17 Zacarias Garcia MD [address] [place] [address] Referring Physician Orthopedic Surgery 05/28/18 Christian Banegas MD [address] [facility] [place] [address] Consulting Physician Endocrinology 05/31/19 Jesusita Montiel MD [address] [place] [address] Otr Driver Obstetrics and Gynecology 02/05/21 [place] [address] [address] Consulting Physician Rheumatology 02/14/22 documented as of this encounter
--- OUTSIDE RECORDS SUMMARY | 2024-12-12 13:56 | XMS_ITS | Clinical Summary ---
Author Organization [facility] [address] Address [address] [place] [address] Phone Care Team Providers Care Ticket Sorter Name Role Phone Edda Anival Siddiqui MD Primary Care Provider [phone] Zacarias Garcia MD Unavailable [phone] Christian Banegas MD Unavailable [phone] Jesusita Montiel MD Unavailable [phone] Cata Nicole MD Unavailable Allergies Active Allergy Reactions Criticality Noted Date [...] 09/22/2024 Assessment & Plan (09/22/2024 10:35 AM SCHOOL PSYCHOLOGIST ASSISTANT): Etiology / pathogenesis was discussed today . [...] 02/28/2024 Assessment & Plan (10/21/2024 11:18 AM SCHOOL PSYCHOLOGIST ASSISTANT): GOAL BP IS 130/80 OR LESS CONTINUE [...] 10/29/2023 Assessment & Plan (10/29/2023 7:03 PM SCHOOL PSYCHOLOGIST ASSISTANT): URI symptoms for 2 weeks. Tested negative [...] 01/02/2021 Assessment & Plan (01/02/2021 3:06 PM SCHOOL PSYCHOLOGIST ASSISTANT): Patient presents with headache, cough, congestion and [...] 11/08/2020 Assessment & Plan (11/08/2020 9:38 AM SCHOOL PSYCHOLOGIST ASSISTANT): Pt started with tingling and then pain [...] has already had covid-19 virus back around . I will treat her today with valtrex [...] aspiration biopsy demonstrated atypia of undetermined significance, [place] category lll. Patient is exhibiting no local [...] least 24 hours before returning to work. Encounters Date Type Department Care Team Description 11/26/2024 6:45 PM SCHOOL PSYCHOLOGIST ASSISTANT Office Visit [facility] Care at [address] [address] Naty Stewart NP Acute cough (Primary Dx) 10/29/2024 Telephone [facility] [address] [place] [address] Anival Hurt MD 10/25/2024 Telephone [facility] [address] [place] [address] Janel Alexander, ALVINO 10/22/2024 Telephone [facility] [address] [place] [address] Sonya Wilson RN 10/21/2024 11:20 AM SCHOOL PSYCHOLOGIST ASSISTANT Lab [facility] [address] [place] [address] Morbid obesity with BMI of 40.0-44.9, adult (HCC); Benign essential HTN 10/21/2024 10:45 AM SCHOOL PSYCHOLOGIST ASSISTANT Office Visit [facility] [address] [place] [address] Anival Hurt MD Morbid obesity with BMI of 40.0-44.9, adult (HCC) (Primary Dx); Benign essential HTN 10/21/2024 Telephone [facility] [address] [place] [address] Janel Alexander, ALVINO 10/21/2024 Telephone [facility] [address] [place] [address] Anival Hurt MD Hypertension 10/06/2024 Telephone [facility] [address] [place] [address] Janel Alexander, RN 09/27/2024 Telephone [facility] [address] [place] [address] Anival Hurt MD 09/22/2024 8:10 AM SCHOOL PSYCHOLOGIST ASSISTANT - 09/22/2024 11:59 PM SCHOOL PSYCHOLOGIST ASSISTANT Hospital Encounter [facility] [address] [place] [address] Rash Discharge Disposition: Discharge to home or self care 09/22/2024 8:00 AM SCHOOL PSYCHOLOGIST ASSISTANT Office Visit [facility] [address] [place] [address] Anival Hurt MD Rash (Primary Dx); Melina albicans infection 09/20/2024 Telephone [facility] [address] [place] [address] Anival Hurt MD from Last 3 Months Immunizations Immunization Administration Dates Next Due Influenza, Quadrivalent, Delphine l Culture-based MDCK, Preservative Free, Antibiotic Free, Intramuscular 08/04/2020 Influenza, Trivalent, IM (MDV) 09/14/2013 Influenza, Unspecified 08/25/2024,2023(Deferred: Patient Refused),08/08/2023,08/04/2020 Pfizer SARS-CoV-2 Monovalent Vaccination (12+ Yrs) PURPLE 12/22/2020,12/01/2020 Tdap 01/23/2024,09/14/2013,09/14/2013 Surgical History Surgery Date Site/Laterality Comments HYSTERECTOMY KNEE ARTHROSCOPY W/ LATERAL RELEASE CHOLECYSTECTOMY LASIK Medical History Medical History Date Comments Hx Other Medical 1996 left knee surge ry Hx Other Medical 1997 left knee surge ry Hx Other Medical 2007 gallbladder Hx Other Medical 2003 left rotator cu ff Hx Other Medical Both knees 1989.; Comments: LAITH 08/19/2014 - Hx Other Medical L rotator cuff repair in 2003; Comments: [facility] 08/19/2014 - Hx Other Medical cholecystectomy 2006; Comments: [facility] 08/19/2014 - Hx Other Medical tubal ligation 2013; Comments: [facility] 08/19/2014 - Hx Other Medical Fx left ankle.; Comments: [facility]ITH 08/19/2014 - Hx Other Medical Right AC resect ion with ant. acromioplasty on 08-27; Comments: [facility] 09/28/2014 - Hx Other Medical Right knee A&A 03-28-15.; Comments: [facility]ITH 04/10/2015 - Thyroid disease Arthritis Depression Migraines Family History Medical History Relation Name Comments Hyperlipidemia Father Chivo High choleste rol; Diabetes Maternal Grandfather Mark Anthony Diabete s mellitus; Heart disease Maternal Grandfather Mark Anthony Heart disease; Leukemia Maternal Grandfather Mark Anthony Cancer -leukemia; Lymphoma Maternal Grandfather Mark Anthony Cancer -lymphoma; Prostate cancer Maternal Grandfather Mark Anthony Canc er -prostate; Breast cancer Maternal Grandmother Diann Cancer Maternal Grandmother Diann Cancer -; Breast cancer Maternal Great-Grandmother Hypertension Mother Melissa Hypertension; Hypertension Other Family history of Hypertension; Diabetes Paternal Grandfather Berto Leukemia Paternal Grandfather Berto Lymphoma Paternal Grandmother Relation Name Status Comments Father Chivo Maternal Grandfather Mark Anthony Maternal Grandmother Diann Maternal Great-Grandmother Mother Melissa Other Paternal Grandfather Berto Paternal Grandmother Social History Tobacco Use Types Packs/Day Years [...] on file Legal Sex Female 12:21 PM SCHOOL PSYCHOLOGIST ASSISTANT Gender Identity Not on file Sexual Orientation Straight 05/27/2024 1: 34 PM CDT Occupation Industry Job Start Date Job End Date Not on file Not on file Not on file Not on file Obstetrics History Para Term AB IAB SAB Ectopic Multiple Livin g Live Births 3 2 2 1 1 2 2 Date Outcome GA Total Labor Labor/2nd/3rd Weight Sex Type Anes PTL Kim A1 A5 Name Clin SAB 2011 Term M Vag-S pont Living 2012 Term M Vag-S pont Living Last Filed Vital Signs Vital Sign Reading Time Taken Comments Blood Pressure 124/74 11/26/2024 6:46 PM SCHOOL PSYCHOLOGIST ASSISTANT Pulse 93 11/26/2024 6:46 PM SCHOOL PSYCHOLOGIST ASSISTANT Temperature 36.8 C (98.3 F) 11/26/2024 6:46 PM SCHOOL PSYCHOLOGIST ASSISTANT Respiratory Rate 20 11/26/2024 6:46 PM SCHOOL PSYCHOLOGIST ASSISTANT Oxygen Saturation 98% 11/26/2024 6:46 PM SCHOOL PSYCHOLOGIST ASSISTANT Inhaled Oxygen Concentration - - Weight 95.7 kg (211 lb) 11/26/2024 6:46 PM SCHOOL PSYCHOLOGIST ASSISTANT Height 152.4 cm (5') 11/26/2024 6:46 PM SCHOOL PSYCHOLOGIST ASSISTANT Body Mass Index 41.21 11/26/2024 6:46 PM SCHOOL PSYCHOLOGIST ASSISTANT Plan of Treatment Health Maintenance Due Date Last Done Comments Colon Cancer Screening-Colonoscopy 1977 Hepatitis C Screening 1977 Hepatitis B Screening 1995 Covid-19 Vaccine ( season) 2024 09/14/2021, 12/22/2020, 12/01/2020 Breast Cancer Screening-Mammogram 04/09/2025 04/09/2024, 01/06/2023 Depression Screening 08/03/2025 08/03/2024, 06/04/2024, 05/27/2024, Additional history exists Regular Well Visit/Exam 18-64 08/26/2025 08/26/2024, 08/03/2024, 02/14/2022, Additional history exists DTaP/Tdap/Td Vaccine (4 - Td or Tdap) 01/22/2034 01/23/2024, 09/14/2013, 09/14/2013 Influenza Vaccine Completed 08/25/2024, , 08/04/2020, Additional history exists Pneumococcal vaccine <65 Aged Out No longer eligible based on patient's age to complete this topic Procedures Procedure Name Priority Date/Time Associated Diagnosis Comments POC INFLUENZA A/B, COVID-19 ANTIGEN Routine 11/26/2024 7:01 PM SCHOOL PSYCHOLOGIST ASSISTANT Acute cough IRON PROFILE W/ IBC Routine 11/10/2024 9 :21 AM SCHOOL PSYCHOLOGIST ASSISTANT Anemia, unspecified type CBC WITH AUTO DIFFERENTIAL Routine 11/10/2024 9:21 AM SCHOOL PSYCHOLOGIST ASSISTANT Anemia, unspecified type EGFR Routine 10/21/2024 11:18 AM SCHOOL PSYCHOLOGIST ASSISTANT Morbid obesity with BMI of 40.0-44.9, adult (HCC) Benign essential HTN DIFFERENTIAL AUTO Routine 10/21/2024 11: 18 AM SCHOOL PSYCHOLOGIST ASSISTANT Morbid obesity with BMI of 40.0-44.9, adult (HCC) Benign essential HTN PRO B-TYPE NATRIURETIC PEPTIDE Routine 10/21/2024 11:18 AM SCHOOL PSYCHOLOGIST ASSISTANT Morbid obesity with BMI of 40.0-44.9, adult (HCC) Benign essential HTN CBC WITH AUTO DIFFERENTIAL Routine 10/21/2024 11:18 AM SCHOOL PSYCHOLOGIST ASSISTANT Morbid obesity with BMI of 40.0-44.9, adult (HCC) Benign essential HTN BASIC METABOLIC PANEL Routine 10/21/2024 11:18 AM SCHOOL PSYCHOLOGIST ASSISTANT Morbid obesity with BMI of 40.0-44.9, adult (HCC) Benign essential HTN MYCOLOGY (FUNGAL) CULTURE Routine 09/22/2024 8:10 AM SCHOOL PSYCHOLOGIST ASSISTANT Rash SCREENING MAMMOGRAM BILATERAL W RAMIREZ Schedule Routine, Read Routine (OP Routine) 04/09/2024 3:33 PM CDT Screening mammogram for breast cancer from Last 3 Months or Most Recently Relevant to Health Maintenance Results * (ABNORMAL) POC Influenza A/B, COVID-19 antigen (11/26/2024 7:01 PM SCHOOL PSYCHOLOGIST ASSISTANT) Influenza A Ag, POC Positive(A) Negative [facility] Influenza B Ag, POC Negative Negative [facility] COVID-19 Ag POC Presumptive Negative Presumptive Negative, Invalid [facility] Nasal 11/26/2024 7:01 PM SCHOOL PSYCHOLOGIST ASSISTANT us Naty Stewart NP POINT OF CARE TEST ORDERABLES F inal Result [facility] [address] * Iron profile w/ IBC (11/10/2024 9:21 AM SCHOOL PSYCHOLOGIST ASSISTANT) Pathologist [facility] Iron 75 40 - 190 mcg/dL [facility] TIBC 303 250 - 450 mcg/dL (calc) [facility] Iron saturation 25 16 - 45 % (calc) [facility] Blood 11/10/2024 9:21 AM SCHOOL PSYCHOLOGIST ASSISTANT 11/11/2024 6:04 AM SCHOOL PSYCHOLOGIST ASSISTANT Narrative [facility] - 11/11/2024 8:25 AM SCHOOL PSYCHOLOGIST ASSISTANT FASTING:YES FASTING: YES us Anival Hurt MD LAB BLOOD ORDERABLES Final Result Performing Organization Address City/[facility]/ZIP Co de Phone Number [facility] [address] [place] [address] * (ABNORMAL) CBC with auto differential (11/10/2024 9:21 AM SCHOOL PSYCHOLOGIST ASSISTANT) [facility] WBC 5.4 3.8 - 10.8 Thousand/u L [...] [facility] Blood 11/10/2024 9:21 AM SCHOOL PSYCHOLOGIST ASSISTANT 11/11/2024 6:04 AM SCHOOL PSYCHOLOGIST ASSISTANT Narrative [facility] - 11/11/2024 8:25 AM SCHOOL PSYCHOLOGIST ASSISTANT FASTING:YES FASTING: YES us Anival Hutr MD LAB BLOOD ORDERABLES Final Result [facility] [address] [place] [address] * eGFR (10/21/2024 11:18 AM SCHOOL PSYCHOLOGIST ASSISTANT) eGFR >90 >=60 mL/min/1. 73 m2 Comment: [...] of Race in Diagnosing Kidney Disease, JASN 202). The CKD-EPI equation should not be used for patients with unstable renal function and has not been validated in children and those over 70. Current interpretive data was last reviewed 2021. Testing performed by: [facility], [address] [place] [address]., [address] Blood 10/21/2024 11:1 8 AM SCHOOL PSYCHOLOGIST ASSISTANT 10/21/2024 7:49 PM SCHOOL PSYCHOLOGIST ASSISTANT us Anival Hurt MD LAB BLOOD ORDERABLES Final Result [place] [address] [address] Department [place] [address] * Differential, auto (10/21/2024 11:18 AM SCHOOL PSYCHOLOGIST ASSISTANT) Neutrophil abs 3.9 1.5 - 6.5 K/cumm Comment:Testing performed by : [address] [address] Imm gran abs 0.0 0.0 - 0.1 K/cumm [facility] Comment:Testing performed by : [address] [address] Lymphocyte abs 1.4 0.8 - 3.3 K/cumm [facility] Comment:Testing performed by : [address] [address] Monocyte abs 0.4 0.2 - 0.8 K/cumm [facility] Comment:Testing performed by : [address] [address] Eosinophil abs 0.2 0.0 - 0.5 K/cumm [facility] Comment:Testing performed by : [address] [address] Basophil abs 0.1 0.0 - 0.1 K/cumm [facility] Comment:Testing performed by : [address] [address] Neutrophil pct 65.5 % [facility] Comment: Interpretive Data Percent cell count reference ranges are not reported, since discordance with absolute values may lead to misinterpretation of CBC data. Current Interpretive Data was last revised on 2018. Testing performed by: [facility], [address] [place] [address]., [address] Imm gran pct 0.3 % [facility] Comment: Interpretive Data Percent cell count reference ranges are not reported, since discordance with absolute values may lead to misinterpretation of CBC data. Current Interpretive Data was last revised on 2018. Testing performed by: [address] [address] Lymphocyte pct 23.8 % [facility] Comment: Interpretive Data Percent cell count reference ranges are not reported, since discordance with absolute values may lead to misinterpretation of CBC data. Current Interpretive Data was last revised on 2018. Testing performed by: [address] [address] Monocyte pct 6.1 % [facility] Comment: Interpretive Data Percent cell count reference ranges are not reported, since discordance with absolute values may lead to misinterpretation of CBC data. Current Interpretive Data was last revised on 2018. Testing performed by: [facility], [address] [place] [address]., [address] Eosinophil pct 3.5 % [facility] Comment: Interpretive Data Percent cell count reference ranges are not reported, since discordance with absolute values may lead to misinterpretation of CBC data. Current Interpretive Data was last revised on 2018. Testing performed by: [address] [address] Basophil pct 0.8 % [facility] Comment: Interpretive Data Percent cell count reference ranges are not reported, since discordance with absolute values may lead to misinterpretation of CBC data. Current Interpretive Data was last revised on 2018. Testing performed by: [address] [address] Blood 10/21/2024 11:1 8 AM SCHOOL PSYCHOLOGIST ASSISTANT 10/21/2024 7:27 PM SCHOOL PSYCHOLOGIST ASSISTANT us Anival Hurt MD LAB BLOOD ORDERABLES Final Result MARIANNA [address] Department [place] [address] * Pro B-type natriuretic peptide (10/21/2024 11:18 AM SCHOOL PSYCHOLOGIST ASSISTANT) NT-proBNP 260 <=300 pg/mL Comment: Interpretive Comments: [...] J. 2006:27:330-337. 2. Maria Eugenia RW, Tony AM. J. AM Kanchan Cardiol: Cardiovasc Imag. 2009;2: 216- 225. Interpretive Data Last Revised Date: 2018. Testing performed by: [facility], [address] [place] [address]., [address] Blood 10/21/2024 11:1 8 AM SCHOOL PSYCHOLOGIST ASSISTANT 10/21/2024 7:27 PM SCHOOL PSYCHOLOGIST ASSISTANT us Anival Hurt MD LAB BLOOD ORDERABLES Final Result MARIANNA [address] [facility] Department [place] [address] * (ABNORMAL) CBC with auto differential (10/21/2024 11:18 AM SCHOOL PSYCHOLOGIST ASSISTANT) [facility] WBC 6.0 3.8 - 9.9 K/cumm Comment:Testing performed by : [facility], [address] [place] [address], [address] Hgb 10.8(L) 11.9 - 15.5 g/dL [facility] Comment:Testing performed by : [address], [address] Hct 34.6(L) 35.6 - 45.5 % [facility] Comment:Testing performed by : [facility], [address] [place] [address], [address] Plt 305 150 - 400 K/cumm [facility] Comment:Testing performed by : [address], [address] MPV 10.7 9.1 - 12.3 fL [facility] Comment:Testing performed by : [address], [address] RBC 3.93 3.90 - 5.20 M/cumm [facility] Comment:Testing performed by : [address], [address] MCV 88.0 81.3 - 96.4 fL [facility] Comment:Testing performed by : [address], [address] MCH 27.5 27.1 - 33.3 pg [facility] Comment:Testing performed by : [address], [address] MCHC 31.2(L) 32.3 - 35.7 g/dL [facility] Comment:Testing performed by : [address], [address] RDW CV 13.8 11.1 - 14.9 % [facility] Comment:Testing performed by : [address], [address] RDW SD 44.7 35.7 - 48.1 fL [facility] Comment:Testing performed by : [address], [address] NRBC abs 0.00 0.00 - 0.01 K/cumm [facility] Comment:Testing performed by : [address] [address] Blood 10/21/2024 11:1 8 AM SCHOOL PSYCHOLOGIST ASSISTANT 10/21/2024 7:27 PM SCHOOL PSYCHOLOGIST ASSISTANT Anival Hurt MD LAB BLOOD ORDERABLES Final Result [address] Department [place] [address] * Basic metabolic panel (10/21/2024 11:18 AM SCHOOL PSYCHOLOGIST ASSISTANT) Sodium 145 135 - 145 mmol/L Comment:Testing performed by : [address] [address] Potassium, pl 3.9 3.3 - 4.9 mmol/L [facility] Comment:Testing performed by : [address], [address] Chloride 109 97 - 110 mmol/L [facility] Comment:Testing performed by : [address] [address] CO2 24 22 - 32 mmol/L [facility] Comment:Testing performed by : [address] [address] Anion gap 12 2 - 15 mmol/L [facility] Comment:Testing performed by : [address] [address] BUN 19 6 - 25 mg/dL [facility] Comment:Testing performed by : [address] [address] Creatinine 0.74 0.60 - 1.10 mg/dL [facility] Comment:Testing performed by : [address] [address] Glucose 83 70 - 199 mg/dL [facility] Comment: Interpretive Data Fasting glucose >/= 126 [...] was last revised 2022. Testing performed by: [facility], [address] [place] [address]., [address] Calcium 8.6 8.5 - 10.3 mg/dL MARIANNA Comment:Testing performed by : [facility], [address] [place] [address]., [address] Blood 10/21/2024 11:1 8 AM SCHOOL PSYCHOLOGIST ASSISTANT 10/21/2024 7:27 PM SCHOOL PSYCHOLOGIST ASSISTANT Anival Hurt MD LAB BLOOD ORDERABLES Final Result Performing Organization Address City/[facility]/ZIP Co de Phone Number MARIANNA [address] [place] [address] * (ABNORMAL) Mycology (fungal) culture Drainage Breast (09/22/2024 8:10 AM SCHOOL PSYCHOLOGIST ASSISTANT) Report Final Report: No growth of fungus * * * * * * * * * * * * * * * * * * * * Few Streptococcus pyogenes (Group A Streptococci) Streptococcus pyogenes is uniformly susceptible to beta-lactam antibiotics and vancomycin. Routine susceptibility testing is not performed. (.) Comment:Testing performed by : [facility], [address] [place]., [address] Organism STREPTOCOCCUS PYOGENES (GROUP A STREPTOCOCCI) MARIANNA Drainage (Breast) 09/22/2024 8:10 AM SCHOOL PSYCHOLOGIST ASSISTANT 09/22/2024 2:30 PM SCHOOL PSYCHOLOGIST ASSISTANT Narrative [facility] - 10/21/2024 8:09 AM SCHOOL PSYCHOLOGIST ASSISTANT Under breasts Specimen received on an ESwab. Testing performed by [facility] Microbiology Laboratory ([phone]). Anival Hurt MD LAB MICROBIOLOGY - GENERAL ORDERABLES Final Result Performing Organization Address City/[facility]/ZIP Co de Phone Number MARIANNA SANCHEZ [address] [place] [address] * Screening Mammogram Bilateral W Ramirez (04/09/2024 [...] for her next mammogram. Electronically signed by: María Hassan M.D. Narrative 04/09/2024 3:40 PM CDT EXAMINATION: SCREENING MAMMOGRAM BILATERAL W RAMIREZ ORDERING HEALTHCARE PROVIDER: ANIVAL HURT HISTORY: Routine screening mammography. COMPARISON: 01/06/2023, 10/11/2016, [...] There has been no suspicious interval change. us Anival Hurt MD IMG MAMMO PROCEDURES Final Result from Last 3 Months or Most Recently Relevant to Health Maintenance Insurance Care Teams Ticket Sorter Relationship Specialty Start Date End Date Anival Hurt MD [address] [place] [address] PCP - General 01/28/17 Zacarias Garcia MD [address] [place] [address] Referring Physician Orthopedic Surgery 05/28/18 Christian Banegas MD [address] [facility] [address] [place] [address] Consulting Physician Endocrinology 05/31/19 Jesusita Montiel MD [address] [place] [address] Substation Electrician Supervisor Obstetrics and Gynecology 02/05/21 [place] [address] [address] Consulting Physician Rheumatology 02/14/22
--- OUTSIDE RECORDS SUMMARY | 2024-12-12 13:56 | XMS_ITS | Encounter Summary ---
Author Organization [facility] Address [address] [place] [address] Phone Care Team Providers Care Graphic Design Professor Name Role Phone Edad, Anival Siddiqui MD Primary Care Provider [phone] Jasbir Mac MD Unavailable [phone] Zacarias Garcia MD Unavailable [phone] Christian Banegas MD Unavailable [phone] Jesusita Montiel MD Unavailable Cata Nicole MD Unavailable Encounter Details Date Type Department Care Team (Late st Contact Info) Description 04/10/2017 Orders Only [facility] [address] [place] [address] Sonam Chapman LPN Social History Tobacco Use Types Packs/Day Years Used Date Smoking Tobacco: Never Alcohol Use Standard Drinks/Week Comments No 0 (1 standard drink = 0.6 oz pur e alcohol) Comments Unknown Sex and Gender Information Value Date Recorded Sex Assigned at Not on file Legal Sex Female 12:21 PM COMFORT STATION ATTENDANT Gender Identity Not on file Sexual Orientation Straight 05/27/2024 1: 34 PM CDT documented as of this encounter Ordered Prescriptions Prescription Sig Dispense Quantity Refills Last Filled Start Date End Date doxycycline (VIBRAMYCIN) 100 mg capsule Take 1 tablet/capsule (100 mg total) by mouth 2 (two) times a day for 7 days. 14 tablet/capsule 04/10/2017 7 methylPREDNISolone (MEDROL DOSEPACK) 4 mg tablet Take as directed on package. 21 tablet 04/10/2017 7 documented in this encounter Plan of Treatment Not on file documented as of this encounter Visit Diagnoses Not on filedocumented in this encounter Additional Health Concerns Infection Onset Date Last Indicated Resolved Time COVID: Suspected 01/02/2021 01/02/2021 01/02/2021 2:30 PM COMFORT STATION ATTENDANT COVID: Suspected 01/04/2021 01/04/2021 01/04/2021 2:21 PM COMFORT STATION ATTENDANT COVID: Suspected 02/08/2022 02/08/2022 02/08/2022 10:56 AM CDT COVID: Suspected 10/29/2023 10/29/2023 10/29/2023 6:54 PM COMFORT STATION ATTENDANT COVID: Suspected 11/20/2023 11/20/2023 11/20/2023 1:14 PM COMFORT STATION ATTENDANT COVID: Suspected 03/14/2024 03/14/2024 03/14/2024 12:54 PM CDT COVID: Suspected 11/26/2024 11/26/2024 11/26/2024 7:03 PM COMFORT STATION ATTENDANT Influenza, adult 11/26/2024 11/26/2024 12/03/2024 3:07 AM COMFORT STATION ATTENDANT documented as of this encounter Care Teams Graphic Design Professor Relationship Specialty Start Date End Date Anival Bañuelos MD [address] [place] [address] PCP - General 01/28/17 Jasbir Mac MD [address] [facility] [address] [place] [address] Referring Physician Obstetrics and Gynecology 05/28/18 02/04/21 Zacarias Garcia MD [address] [facility] [address] [place] [address] Referring Physician Orthopedic Surgery 05/28/18 Christian Banegas MD [address] [facility] [address] [place] [address] Consulting Physician Endocrinology 05/31/19 Jesusita Montiel MD 1 [facility] [place] [address] Inpatient Care Manager Rn Obstetrics and Gynecology 02/05/21 [place] [address] [facility] [address] [place] [address] Consulting Physician Rheumatology 02/14/22 documented as of this encounter
--- OUTSIDE RECORDS SUMMARY | 2024-12-12 13:56 | XMS_ITS | Encounter Summary ---
Author Organization [facility] Address [address] [place] [address] Phone Care Team Providers Care Transfusion Aide Name Role Phone Edda Anival Siddiqui MD Primary Care Provider [phone]- [phone] Jasbir Mac MD Unavailable [phone] Zacarias Garcia MD Unavailable [phone] Christian Banegas MD Unavailable [phone] Jesusita Montiel MD Unavailable Cata Nicole MD Unavailable Encounter Details Date Type Department Care Team (Late st Contact Info) Description 08/15/2020 Orders Only [facility] [address] [place] [address] Scanning, Provider Social History Tobacco Use Types Packs/Day Years Used Date Smoking Tobacco: Never Smokeless Tobacco: Never Alcohol Use Standard Drinks/Week Comments No 0 (1 standard drink = 0.6 oz pur e alcohol) Comments No Sex and Gender Information Value Date Recorded Sex Assigned at Not on file Legal Sex 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 Gender Identity Not on file Sexual Orientation Straight 05/27/2024 1: 34 PM CDT documented as of this encounter Plan of Treatment Not on file documented as of this encounter Procedures Procedure Name Priority Date/Time Associated Diagnosis Comments SCAN - RADIOLOGY/IMAGING 08/15/2020 documented in this encounter Results * SCAN - RADIOLOGY/IMAGING (08/15/2020) Anatomical Region Laterality Modality Other us Provider Scanning Final Result documented in this encounter Visit Diagnoses Not on filedocumented in this encounter Additional Health Concerns Infection Onset Date Last Indicated Resolved Time COVID: Suspected 01/02/2021 01/02/2021 01/02/2021 2:30 PM FARM SPECIALIST COVID: Suspected 01/04/2021 01/04/2021 01/04/2021 2:21 PM FARM SPECIALIST COVID: Suspected 02/08/2022 02/08/2022 02/08/2022 10:56 AM CDT COVID: Suspected 10/29/2023 10/29/2023 10/29/2023 6:54 PM FARM SPECIALIST COVID: Suspected 11/20/2023 11/20/2023 11/20/2023 1:14 PM FARM SPECIALIST COVID: Suspected 03/14/2024 03/14/2024 03/14/2024 12:54 PM CDT COVID: Suspected 11/26/2024 11/26/2024 11/26/2024 7:03 PM FARM SPECIALIST Influenza, adult 11/26/2024 11/26/2024 12/03/2024 3:07 AM FARM SPECIALIST documented as of this encounter Care Teams Transfusion Aide Relationship Specialty Start Date End Date Anival Bañuelos MD [address] [address] PCP - General 01/28/17 Jasbir Mac MD [address] [place] [address] Referring Physician Obstetrics and Gynecology 05/28/18 02/04/21 Zacarias Garcia MD [address] [address] Referring Physician Orthopedic Surgery 05/28/18 Christian Banegas MD [address] [place] [address] [address] [place] [address] Consulting Physician Endocrinology 05/31/19 Jesusita Montiel MD [address] [facility] [place] [address] Hypoid Gear Tester Obstetrics and Gynecology 02/05/21 [place] [address] [facility] [address] [place] [address] Consulting Physician Rheumatology 02/14/22 documented as of this encounter
--- OUTSIDE RECORDS SUMMARY | 2024-12-12 13:56 | XMS_ITS | Encounter Summary ---
Author Organization [facility] Address [address] [place] [address] Phone Care Team Providers Care Contracts Administrator Name Role Phone Edda Anival Siddiqui MD Primary Care Provider [phone] Zacarias Garcia MD Unavailable [phone] Christian Banegas MD Unavailable [phone] Jesusita Montiel MD Unavailable Cata Nicole MD Unavailable Encounter Details Date Type Department Care Team (Late st Contact Info) Description 12/11/2022 Orders Only [facility] [address] [place] [address] Scanning, Provider Social History Tobacco [...] on file Legal Sex Female 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 Gender Identity Not on file Sexual Orientation Straight 05/27/2024 1: 34 PM CDT documented as of this encounter Plan of Treatment Not on file documented as of this encounter Procedures Procedure Name Priority Date/Time Associated Diagnosis Comments SCAN - LABS 12/11/2022 documented in this encounter Results * SCAN - LABS (12/11/2022) us Provider Scanning Final Result documented in this encounter Visit Diagnoses Not on filedocumented in this encounter Additional Health Concerns Infection Onset Date Last Indicated Resolved Time COVID: Suspected 10/29/2023 10/29/2023 10/29/2023 6:54 PM 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 COVID: Suspected 11/20/2023 11/20/2023 11/20/2023 1:14 PM 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 COVID: Suspected 03/14/2024 03/14/2024 03/14/2024 12:54 PM CDT COVID: Suspected 11/26/2024 11/26/2024 11/26/2024 7:03 PM 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 Influenza, adult 11/26/2024 11/26/2024 12/03/2024 3:07 AM 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 documented as of this encounter Care Teams Contracts Administrator Relationship Specialty Start Date End Date Anival Bañuelos MD [address] [place] [address] PCP - General 01/28/17 Zacarias Garcia MD [address] [place] [address] Referring Physician Orthopedic Surgery 05/28/18 Christian Banegas MD [address] [facility] [place] [address] Consulting Physician Endocrinology 05/31/19 Jesusita Montiel MD [address] [place] [address] Pin Or Clip Fastener Obstetrics and Gynecology 02/05/21 [place] [address] [address] Consulting Physician Rheumatology 02/14/22 documented as of this encounter
--- OUTSIDE RECORDS SUMMARY | 2024-12-12 13:56 | XMS_ITS | Continuity of Care Document ---
Author Organization [facility] Address [address] [place] [address] Phone Care Team Providers Care Cottage Cheese Maker Name Role Phone Allie COREAS, Wolf Unavailable Unavailable Procedures Procedure Date LOWER EXTREM CAT W/O CONTRAST 2 Advance Directives Directive Yes / No Effective Date File Name No Information Encounters Encounter Description Practice Location Reason(s) For Visit Diagnoses Date Provider Providers Copied on Encounter [employer] [facility], [address], [place], [place], [id number], [place] tel:[phone] [facility] No Information Allie Bloom. [address] , [place], [place], [id number], [place]. tel:[phone] Referring Provider: Calvin Gabriel, [address] [place], [address]. tel:[phone] Family History Family Member Type Diagnosis Age At Onset No Information Payers Payer name Insurance type Covered libertarian ID Authoriza tion(s) No Information Social History Type Description Quantity Date Captured Comments Sex Female Smoking Status No Information Chief Complaint And Reason For Visit No Information Reason For Referral Reason For Referral No Information History Of Present Illness Encounter Date Complaint History Of Prese nt Illness No Information Functional Status Date Functional Assessmen t No Information Instructions Date Instruction Additional Infor mation No Information Assessments Type Assessment Date No Information Patient Care Teams Name Effective Dates (start - stop) Status Members No Information
--- NOTE | 2024-12-12 13:58 | ED.BACK ---
HPI - Back Pain/Injury General Chief Complaint: Back Pain/Injury Stated Complaint: flank pain Time Seen by Provider: 12/12/24 13:57 Source: patient Mode of arrival: ambulatory Limitations: no limitations History of Present Illness HPI Narrative: 49-year-old female with a history of depression, hypothyroidism, status post bilateral knee replacement, status post rotator cuff surgery, status post BTL with a prior history of relapse of the intervertebral disc presents to the ED with a 2 day history of -- lower back pain which radiates around her trunk. The pain got worse when she twisted her back while taking a shower this morning. Pain is severe. The patient is unable to ambulate. No paresthesias of the lower extremity. No sensory motor loss. No bladder or bowel involvement. MD elicited complaint: back pain Pertinent past history: prior back pain Onset (ago): day(s) ( 2 days) Timing: constant Severity: severe Quality: aching Location: lumbar spine Radiation: other ( radiates down her trunk.) Exacerbating factors: movement Relieving factors: immobilization Context: turning/twisting Associated symptoms: denies other symptoms Work related injury: No Related Data Home Medications ?Medication ?Instructions ?Recorded ?Confirmed ?Last Taken ?Type fluoxetine 20 mg capsule (Prozac) 20 mg PO HS 08/15/22 07/16/24 01/07/23 History methotrexate See Rx Instructions .Route .COMPLEX 12/11/22 07/16/24 01/04/23 History albuterol sulfate 90 mcg/actuation 2 puff inhalation Q4-6H PRN 12/12/24 Unknown History aerosol inhaler shortness of breath or wheezing levothyroxine 100 mcg tablet 100 mcg PO DAILY 12/12/24 Unknown History lisinopril 5 mg tablet 5 mg PO DAILY 12/12/24 Unknown History Allergies Allergy/AdvReac Type Severity Reaction Status Date / Time No Known Allergies Allergy Unknown Verified 12/12/24 14:07 Review of Systems Review of Systems: All systems reviewed & are unremarkable except as noted in HPI and below PMFSH Past Medical History Medical History Hypothyroidism John's disease Psoriatic arthritis History of rotator cuff tear History of migraine headaches Patient denies medical problems Surgical History Surgical History History of rotator cuff surgery History of knee surgery 2 right knee surgeries History of tubal ligation History of cholecystectomy History of left knee surgery X 2 Family History Family History Grandparent Family history of arthritis Leukemia Lymphoma Malignant neoplasm of prostate Grandparent Diabetes mellitus Mother Hypertension Father Hyperlipidemia Other Family history of malignant neoplasm Social History Social History Smoking status: Never smoker Second hand tobacco smoke exposure: No Alcohol intake: never Substance use: never Substance use type: does not use Lack of Transportation: No Lack of Food: Never True Current Housing: I Have Housing Concerned About Future Housing: No Difficulty Paying Gas/Electric Bills: No Difficulty Paying for Meds: No Currently Unemployed: No Education: Associate Degree Difficulty w/ Childcare or Family Care: No Living arrangements: with family Additional living arrangements comments: LIVES WITH SPOUSE & CHILDREN Gender identity (if verbalized by the patient): Female Spiritual care concerns: No Exam Narrative: Afebrile. Blood pressure of 150/100. Const: Orientation/consciousness: patient oriented x3 HENMT: Head: normal to inspection Ears: external ears normal Face/Nose/Sinus: Normal external nose present Face and sinus: normal facial exam Mouth: Yes Normal oral and palatal mucosa present Throat: posterior oropharynx normal Eyes: Conjunctivae: conjunctivae normal EOM: EOMs intact bilaterally Direct Ophthalmoscopy: no photophobia Neck: Neck: normal visual inspection, no lymphadenopathy and no meningeal signs Resp: Effort & Inspection: normal respiratory effort Auscultation: clear to auscultation bilaterally Cardio: Rate: regular rate Rhythm: regular rhythm GI: Auscultation: normal bowel sounds Other: No tenderness/rigidity / rebound. : General: Yes no CVA tenderness Back/Spine/Pelvis: Back: no CVA tenderness Other: No spinal tenderness. Straight-leg raising test is negative on both sides. No sensory motor loss. Intact bilateral knee jerk. Unable to elicit ankle jerks. Skin: General skin exam: normal color Rashes: no rashes Wounds: no wounds Neuro: General: patient oriented x3, moves all extremities, no meningeal signs, no focal motor deficits and CN's II-XI intact bilaterally Cranial nerves: Yes Nystagmus not present Speech: normal speech Extrem: General: normal to inspection and no clubbing, cyanosis or edema Psych: Mental Status: mental status grossly normal Affect: normal affect Attitude: cooperative Course Course Emergency Course: acute low back pain-- CT of the lumbar spine revealed T12 Schmorl's node. The patient was noted to have decreased disc height at T11/12, T12/L1, L5/S1. The patient is noted to have facet osteoarthritis, mild to moderate foraminal/spinal stenosis. Vital Signs Vital signs: Vital Signs Temperature 36.7 C 12/12/24 13:55 Pulse Rate 82 12/12/24 13:55 Respiratory Rate 20 12/12/24 13:55 Blood Pressure 150/110 H 12/12/24 13:55 Pulse Oximetry 100 12/12/24 13:55 Oxygen Delivery Room Air 12/12/24 13:55 Temperature 36.7 C 12/12/24 13:55 Pulse Rate 82 12/12/24 13:55 Respiratory Rate 20 12/12/24 13:55 Blood Pressure 150/110 H 12/12/24 13:55 Pulse Oximetry 100 12/12/24 13:55 Oxygen Delivery Room Air 12/12/24 13:55 MDM - Back Pain/Injury MDM Narrative Medical decision making narrative: Acute low back pain/ lumbar spondylosis Differential Diagnosis Differential diagnosis: Likely lumbar radiculopathy Medical Records Attestation: I reviewed the patient's medical records. Lab Data Attestation: I reviewed the patient's lab results. Discharge Plan Discharge Clinical Impression: Lumbar spondylosis Acute bilateral low back pain Qualifiers: Sciatica presence: without sciatica Qualified Code(s): M54.50 - Low back pain, unspecified Patient Disposition: Home, Self-Care Condition: Stable Instructions: Antibiotic Form, Acute Low Back Pain (ED) Patient Language: Kiswahili Prescriptions: New cyclobenzaprine 5 mg tablet 5 mg PO TID PRN (Reason: muscle spasm) Qty: 14 0RF ibuprofen 400 mg tablet 400 mg PO TID PRN (Reason: pain) Qty: 30 0RF No Action levothyroxine 100 mcg tablet 100 mcg PO DAILY lisinopril 5 mg tablet 5 mg PO DAILY albuterol sulfate 90 mcg/actuation HFA aerosol inhaler 2 puff INHALATION Q4-6H PRN (Reason: shortness of breath or wheezing) fluoxetine [Prozac] 20 mg capsule 20 mg PO HS methotrexate See Rx Instructions .ROUTE .COMPLEX Rx Instructions: 2.5MG TABLET, 6 TABLETS WEEKLY - PT TAKES ON SATURDAYS Follow-up/Referrals: Edda,MD Anival [Primary Care Provider] - Time of Disposition: 15:19
[2024-12-12] MEDS: KETOROLAC 30 MG/ML VIAL (*BKC) IM (14:28)
--- OUTSIDE RECORDS SUMMARY | 2024-12-12 14:33 | XMS_ITS | Encounter Summary ---
Author Organization [facility] Address [address] [place] [address] Phone Care Team Providers Care Mva Operator Name Role Phone Edda Anival Siddiqui MD Primary Care Provider [phone] Zacarias Garcia MD Unavailable [phone] Christian Banegas MD Unavailable [phone] Jesusita Montiel MD Unavailable [phone] Cata Nicole MD Unavailable Encounter Details Date Type Department Care Team (Late st Contact Info) Description 11/06/2022 Orders Only [facility] [address] [place] [address] Scanning, Provider Social History Tobacco [...] on file Legal Sex Female 12:21 PM SPACE AND MISSILE OPERATIONS SPACELIFT Gender Identity Not on file Sexual Orientation [...] COVID: Suspected 10/29/2023 10/29/2023 10/29/2023 6:54 PM SPACE AND MISSILE OPERATIONS SPACELIFT COVID: Suspected 11/20/2023 11/20/2023 11/20/2023 1:14 PM SPACE AND MISSILE OPERATIONS SPACELIFT COVID: Suspected 03/14/2024 03/14/2024 03/14/2024 12:54 PM CDT COVID: Suspected 11/26/2024 11/26/2024 11/26/2024 7:03 PM SPACE AND MISSILE OPERATIONS SPACELIFT Influenza, adult 11/26/2024 11/26/2024 12/03/2024 3:07 AM SPACE AND MISSILE OPERATIONS SPACELIFT documented as of this encounter Care Teams Mva Operator Relationship Specialty Start Date End Date Anival Bañuelos MD [address] [place] [address] PCP - General 01/28/17 Zacarias Garcia MD [address] [place] [address] Referring Physician Orthopedic Surgery 05/28/18 Christian Banegas MD [address] [facility] [place] [address] Consulting Physician Endocrinology 05/31/19 Jesusita Montiel MD [address] [place] [address] Cement Mason Obstetrics and Gynecology 02/05/21 [place] [address] [address] Consulting Physician Rheumatology 02/14/22 documented as of this encounter
--- OUTSIDE RECORDS SUMMARY | 2024-12-12 14:33 | XMS_ITS | Encounter Summary ---
Author Organization [facility] Address [address] [place] [address] Phone Care Team Providers Care Voting Machine Mechanic Name Role Phone Edda Anival Siddiqui MD Primary Care Provider [phone] Zacarias Garcia MD Unavailable [phone] Christian Banegas MD Unavailable [phone] Jesusita Montiel MD Unavailable [phone] Cata Nicole MD Unavailable Encounter Details Date Type Department Care Team (Late st Contact Info) Description 02/26/2023 Orders Only [facility] [address] [place] [address] Scanning, Provider Social History Tobacco [...] on file Legal Sex Female 12:21 PM MICROBIOLOGY SUPERVISOR Gender Identity Not on file Sexual Orientation [...] COVID: Suspected 10/29/2023 10/29/2023 10/29/2023 6:54 PM MICROBIOLOGY SUPERVISOR COVID: Suspected 11/20/2023 11/20/2023 11/20/2023 1:14 PM MICROBIOLOGY SUPERVISOR COVID: Suspected 03/14/2024 03/14/2024 03/14/2024 12:54 PM CDT COVID: Suspected 11/26/2024 11/26/2024 11/26/2024 7:03 PM MICROBIOLOGY SUPERVISOR Influenza, adult 11/26/2024 11/26/2024 12/03/2024 3:07 AM MICROBIOLOGY SUPERVISOR documented as of this encounter Care Teams Voting Machine Mechanic Relationship Specialty Start Date End Date Anival Bañuelos MD [address] [place] [address] PCP - General 01/28/17 Zacarias Garcia MD [address] [place] [address] Referring Physician Orthopedic Surgery 05/28/18 Christian Banegas MD [address] [facility] [address] [place] [address] Consulting Physician Endocrinology 05/31/19 Jesusita Montiel MD [address] [place] [address] Hot Mix Operator Obstetrics and Gynecology 02/05/21 [place] [address] [address] Consulting Physician Rheumatology 02/14/22 documented as of this encounter
--- OUTSIDE RECORDS SUMMARY | 2024-12-12 14:33 | XMS_ITS | Clinical Summary ---
Author Organization [facility] [email or web address] Address [address] [place] [address] Phone Care Team Providers Care Ornamenter Name Role Phone Edda Anival Siddiqui MD Primary Care Provider [phone] Zacarias Garcia MD Unavailable [phone] Christian Banegas MD Unavailable [phone] Jesusita Montiel MD Unavailable [phone] Cata Nicole MD Unavailable Allergies Active Allergy [...] 09/22/2024 Assessment & Plan (09/22/2024 10:35 AM ADULT EDUCATOR): Etiology / pathogenesis was discussed today . [...] 02/28/2024 Assessment & Plan (10/21/2024 11:18 AM ADULT EDUCATOR): GOAL BP IS 130/80 OR LESS CONTINUE [...] 10/29/2023 Assessment & Plan (10/29/2023 7:03 PM ADULT EDUCATOR): URI symptoms for 2 weeks. Tested negative [...] 01/02/2021 Assessment & Plan (01/02/2021 3:06 PM ADULT EDUCATOR): Patient presents with headache, cough, congestion and [...] 11/08/2020 Assessment & Plan (11/08/2020 9:38 AM ADULT EDUCATOR): Pt started with tingling and then pain [...] aspiration biopsy demonstrated atypia of undetermined significance, Lincoln category lll. Patient is exhibiting no local [...] Department Care Team Description 11/26/2024 6:45 PM ADULT EDUCATOR Office Visit [facility] Care at [address] [address] Naty Stewart NP Acute cough (Primary Dx) 10/29/2024 Telephone [facility] [address] [place] [address] Anival Hurt MD 10/25/2024 Telephone [facility] [address] [place] [address] Janel Alexander, ALVINO 10/22/2024 Telephone [facility] [address] [place] [address] Sonya Wilson RN 10/21/2024 11:20 AM ADULT EDUCATOR Lab [facility] [address] [place] [address] Morbid obesity with BMI of 40.0-44.9, adult (HCC); Benign essential HTN 10/21/2024 10:45 AM ADULT EDUCATOR Office Visit [facility] [address] [place] [address] Anival Hurt MD Morbid obesity with BMI of 40.0-44.9, adult (HCC) (Primary Dx); Benign essential HTN 10/21/2024 Telephone [facility] [address] [place] [address] Janel Alexander, ALVINO 10/21/2024 Telephone [facility] [address] [place] [address] Anival Hurt MD Hypertension 10/06/2024 Telephone [facility] [address] [place] [address] Janel Alexander, RN 09/27/2024 Telephone [facility] [address] [place] [address] Anival Hurt MD 09/22/2024 8:10 AM ADULT EDUCATOR - 09/22/2024 11:59 PM ADULT EDUCATOR Hospital Encounter [facility] [address] [place] [address] Rash Discharge Disposition: Discharge to home or self care 09/22/2024 8:00 AM ADULT EDUCATOR Office Visit [facility] [address] [place] [address] Anival Hurt MD Rash (Primary Dx); Melina albicans infection 09/20/2024 Telephone [facility] [address] [place] [address] Anival Hurt MD from Last 3 Months [...] on file Legal Sex Female 12:21 PM ADULT EDUCATOR Gender Identity Not on file Sexual Orientation [...] Comments Blood Pressure 124/74 11/26/2024 6:46 PM ADULT EDUCATOR Pulse 93 11/26/2024 6:46 PM ADULT EDUCATOR Temperature 36.8 C (98.3 F) 11/26/2024 6:46 PM ADULT EDUCATOR Respiratory Rate 20 11/26/2024 6:46 PM ADULT EDUCATOR Oxygen Saturation 98% 11/26/2024 6:46 PM ADULT EDUCATOR Inhaled Oxygen Concentration - - Weight 95.7 kg (211 lb) 11/26/2024 6:46 PM ADULT EDUCATOR Height 152.4 cm (5') 11/26/2024 6:46 PM ADULT EDUCATOR Body Mass Index 41.21 11/26/2024 6:46 PM ADULT EDUCATOR Plan of Treatment Health Maintenance Due Date [...] A/B, COVID-19 ANTIGEN Routine 11/26/2024 7:01 PM ADULT EDUCATOR Acute cough IRON PROFILE W/ IBC Routine 11/10/2024 9 :21 AM ADULT EDUCATOR Anemia, unspecified type CBC WITH AUTO DIFFERENTIAL Routine 11/10/2024 9:21 AM ADULT EDUCATOR Anemia, unspecified type EGFR Routine 10/21/2024 11:18 AM ADULT EDUCATOR Morbid obesity with BMI of 40.0-44.9, adult (HCC) Benign essential HTN DIFFERENTIAL AUTO Routine 10/21/2024 11: 18 AM ADULT EDUCATOR Morbid obesity with BMI of 40.0-44.9, adult (HCC) Benign essential HTN PRO B-TYPE NATRIURETIC PEPTIDE Routine 10/21/2024 11:18 AM ADULT EDUCATOR Morbid obesity with BMI of 40.0-44.9, adult (HCC) Benign essential HTN CBC WITH AUTO DIFFERENTIAL Routine 10/21/2024 11:18 AM ADULT EDUCATOR Morbid obesity with BMI of 40.0-44.9, adult (HCC) Benign essential HTN BASIC METABOLIC PANEL Routine 10/21/2024 11:18 AM ADULT EDUCATOR Morbid obesity with BMI of 40.0-44.9, adult (HCC) Benign essential HTN MYCOLOGY (FUNGAL) CULTURE Routine 09/22/2024 8:10 AM ADULT EDUCATOR Rash SCREENING MAMMOGRAM BILATERAL W RAMIREZ Schedule Routine, Read Routine (OP Routine) 04/09/2024 3:33 PM CDT Screening mammogram for breast cancer from Last 3 Months or Most Recently Relevant to Health Maintenance Results * (ABNORMAL) POC Influenza A/B, COVID-19 antigen (11/26/2024 7:01 PM ADULT EDUCATOR) Influenza A Ag, POC Positive(A) Negative [facility] Influenza B Ag, POC Negative Negative [facility] COVID-19 Ag POC Presumptive Negative Presumptive Negative, Invalid [facility] Nasal 11/26/2024 7:01 PM ADULT EDUCATOR us Naty Stewart NP POINT OF CARE TEST ORDERABLES F inal Result [facility] [address] * Iron profile w/ IBC (11/10/2024 9:21 AM ADULT EDUCATOR) Pathologist [facility] Iron 75 40 - 190 mcg/dL [facility] TIBC 303 250 - 450 mcg/dL (calc) [facility] Iron saturation 25 16 - 45 % (calc) [facility] Blood 11/10/2024 9:21 AM ADULT EDUCATOR 11/11/2024 6:04 AM ADULT EDUCATOR Narrative [facility] - 11/11/2024 8:25 AM ADULT EDUCATOR FASTING:YES FASTING: YES us Anival Hurt MD LAB BLOOD ORDERABLES Final Result Performing Organization Address City/[facility] [address]/ZIP Co de Phone Number [facility] [address] [place] [address] * (ABNORMAL) CBC with auto differential (11/10/2024 9:21 AM ADULT EDUCATOR) [facility] WBC 5.4 3.8 - 10.8 Thousand/u L [...] [facility] Blood 11/10/2024 9:21 AM ADULT EDUCATOR 11/11/2024 6:04 AM ADULT EDUCATOR Narrative [facility] - 11/11/2024 8:25 AM ADULT EDUCATOR FASTING:YES FASTING: YES us Anival Hurt MD LAB BLOOD ORDERABLES Final Result [facility] [address] [place] [address] * eGFR (10/21/2024 11:18 AM ADULT EDUCATOR) eGFR >90 >=60 mL/min/1. 73 m2 Comment: [...] was last reviewed 2021. Testing performed by: [facility], [address] [place] [address]., [address] Blood 10/21/2024 11:1 8 AM ADULT EDUCATOR 10/21/2024 7:49 PM ADULT EDUCATOR us Anival Hurt MD LAB BLOOD ORDERABLES Final Result [place] [address] [address] Department [place] [address] * Differential, auto (10/21/2024 11:18 AM ADULT EDUCATOR) Neutrophil abs 3.9 1.5 - 6.5 K/cumm Comment:Testing performed by : [address] [address] Imm gran abs 0.0 0.0 - 0.1 K/cumm [facility] Comment:Testing performed by : [address] [address] Lymphocyte abs 1.4 0.8 - 3.3 K/cumm [facility] Comment:Testing performed by : [address] [address] Monocyte abs 0.4 0.2 - 0.8 K/cumm [facility] Comment:Testing performed by : [address] [address] Eosinophil abs 0.2 0.0 - 0.5 K/cumm [facility] Comment:Testing performed by : [address] [address] Basophil abs 0.1 0.0 - 0.1 K/cumm [facility] Comment:Testing performed by : [address] [address] Neutrophil pct 65.5 % [facility] Comment: Interpretive Data Percent cell count reference ranges are not reported, since discordance with absolute values may lead to misinterpretation of CBC data. Current Interpretive Data was last revised on 2018. Testing performed by: [facility], [address] [place] [address]., [address] Imm gran pct 0.3 % [facility] Comment: Interpretive Data Percent cell count reference ranges are not reported, since discordance with absolute values may lead to misinterpretation of CBC data. Current Interpretive Data was last revised on 2018. Testing performed by: [address] [address] Lymphocyte pct 23.8 % [facility] Comment: Interpretive Data Percent cell count reference ranges are not reported, since discordance with absolute values may lead to misinterpretation of CBC data. Current Interpretive Data was last revised on 2018. Testing performed by: [address] [address] Monocyte pct 6.1 % [facility] Comment: Interpretive Data Percent cell count reference ranges are not reported, since discordance with absolute values may lead to misinterpretation of CBC data. Current Interpretive Data was last revised on 2018. Testing performed by: [facility], [address] [place] [address]., [address] Eosinophil pct 3.5 % [facility] Comment: Interpretive Data Percent cell count reference ranges are not reported, since discordance with absolute values may lead to misinterpretation of CBC data. Current Interpretive Data was last revised on 2018. Testing performed by: [address] [address] Basophil pct 0.8 % [facility] Comment: Interpretive Data Percent cell count reference ranges are not reported, since discordance with absolute values may lead to misinterpretation of CBC data. Current Interpretive Data was last revised on 2018. Testing performed by: [address] [address] Blood 10/21/2024 11:1 8 AM ADULT EDUCATOR 10/21/2024 7:27 PM ADULT EDUCATOR us Anival Hurt MD LAB BLOOD ORDERABLES Final Result [facility] [address] Department [place] [address] * Pro B-type natriuretic peptide (10/21/2024 11:18 AM ADULT EDUCATOR) NT-proBNP 260 <=300 pg/mL Comment: Interpretive Comments: [...] Last Revised Date: 2018. Testing performed by: [facility], [address] [place] [address]., [address] Blood 10/21/2024 11:1 8 AM ADULT EDUCATOR 10/21/2024 7:27 PM ADULT EDUCATOR us Anival Hurt MD LAB BLOOD ORDERABLES Final Result [facility] [address] [facility] Department [place] [address] * (ABNORMAL) CBC with auto differential (10/21/2024 11:18 AM ADULT EDUCATOR) [facility] WBC 6.0 3.8 - 9.9 K/cumm Comment:Testing performed by : [facility], [address] [place] [address], [address] Hgb 10.8(L) 11.9 - 15.5 g/dL [facility] Comment:Testing performed by : [address], [address] Hct 34.6(L) 35.6 - 45.5 % [facility] Comment:Testing performed by : [facility], [address] [place] [address], [address] Plt 305 150 - 400 K/cumm [facility] Comment:Testing performed by : [address], [address] MPV 10.7 9.1 - 12.3 fL [facility] Comment:Testing performed by : [address], [address] RBC 3.93 3.90 - 5.20 M/cumm [facility] Comment:Testing performed by : [address], [address] MCV 88.0 81.3 - 96.4 fL [facility] Comment:Testing performed by : [address], [address] MCH 27.5 27.1 - 33.3 pg [facility] Comment:Testing performed by : [address], [address] MCHC 31.2(L) 32.3 - 35.7 g/dL [facility] Comment:Testing performed by : [address], [address] RDW CV 13.8 11.1 - 14.9 % [facility] Comment:Testing performed by : [address], [address] RDW SD 44.7 35.7 - 48.1 fL [facility] Comment:Testing performed by : [address], [address] NRBC abs 0.00 0.00 - 0.01 K/cumm [facility] Comment:Testing performed by : [address] [address] Blood 10/21/2024 11:1 8 AM ADULT EDUCATOR 10/21/2024 7:27 PM ADULT EDUCATOR Anival Hurt MD LAB BLOOD ORDERABLES Final Result [address] Department [place] [address] * Basic metabolic panel (10/21/2024 11:18 AM ADULT EDUCATOR) Sodium 145 135 - 145 mmol/L Comment:Testing performed by : [address] [address] Potassium, pl 3.9 3.3 - 4.9 mmol/L [facility] Comment:Testing performed by : [address], [address] Chloride 109 97 - 110 mmol/L [facility] Comment:Testing performed by : [address] [address] CO2 24 22 - 32 mmol/L [facility] Comment:Testing performed by : [address] [address] Anion gap 12 2 - 15 mmol/L [facility] Comment:Testing performed by : [address] [address] BUN 19 6 - 25 mg/dL [facility] Comment:Testing performed by : [address] [address] Creatinine 0.74 0.60 - 1.10 mg/dL [facility] Comment:Testing performed by : [address] [address] Glucose 83 70 - 199 mg/dL [facility] Comment: Interpretive Data Fasting glucose >/= 126 [...] was last revised 2022. Testing performed by: [facility], [address] [place] [address]., [address] Calcium 8.6 8.5 - 10.3 mg/dL [facility] Comment:Testing performed by : [facility], [address] [place] [address]., [address] Blood 10/21/2024 11:1 8 AM ADULT EDUCATOR 10/21/2024 7:27 PM ADULT EDUCATOR Anival Hurt MD LAB BLOOD ORDERABLES Final Result Performing Organization Address City/[facility] [address]/ZIP Co de Phone Number MARIANNA [address] [place] [address] * (ABNORMAL) Mycology (fungal) culture Drainage Breast (09/22/2024 8:10 AM ADULT EDUCATOR) Report Final Report: No growth of fungus * * * * * * * * * * * * * * * * * * * * Few Streptococcus pyogenes (Group A Streptococci) Streptococcus pyogenes is uniformly susceptible to beta-lactam antibiotics and vancomycin. Routine susceptibility testing is not performed. (.) Comment:Testing performed by : [facility], [address] [place]., [address] Organism STREPTOCOCCUS PYOGENES (GROUP A STREPTOCOCCI) MARIANNA Drainage (Breast) 09/22/2024 8:10 AM ADULT EDUCATOR 09/22/2024 2:30 PM ADULT EDUCATOR Narrative [facility] - 10/21/2024 8:09 AM ADULT EDUCATOR Under breasts Specimen received on an ESwab. Testing performed by [facility] ([phone]). Anival Hurt MD LAB MICROBIOLOGY - GENERAL ORDERABLES Final Result Performing Organization Address City/[facility] [address]/ZIP Co de Phone Number MARIANNA [place] [address] [address] [place] [address] * Screening Mammogram Bilateral W Ramirez (04/09/2024 [...] Relevant to Health Maintenance Insurance Care Teams Ornamenter Relationship Specialty Start Date End Date Anival Hurt MD [address] [place] [address] PCP - General 01/28/17 Zacarias Garcia MD [address] [place] [address] Referring Physician Orthopedic Surgery 05/28/18 Christian Banegas MD [address] [facility] [address] [place] [address] Consulting Physician Endocrinology 05/31/19 Jesusita Montiel MD [address] [place] [address] Broke Beater Operator Obstetrics and Gynecology 02/05/21 [place] [address] [address] Consulting Physician Rheumatology 02/14/22
--- OUTSIDE RECORDS SUMMARY | 2024-12-12 14:33 | XMS_ITS | Encounter Summary ---
Author Organization [facility] Healthcare Address [address] [place] [address] Care Team Providers Care Rail Setter Name Role Phone Edda, Anival Siddiqui MD Primary Care Provider [phone] Zacarias Garcia MD Unavailable [phone] Christian Banegas MD Unavailable [phone] Jesuista Montiel MD Unavailable Cata Nicole MD Unavailable Encounter Details Date Type Department Care Team (Late st Contact Info) Description 07/16/2024 Orders Only [facility] [address] [place] [address] Scanning, Provider Social History Tobacco Use Types [...] on file Legal Sex Female 12:21 PM OLEO HASHER AND RENDERER Gender Identity Not on file Sexual Orientation [...] COVID: Suspected 11/26/2024 11/26/2024 11/26/2024 7:03 PM OLEO HASHER AND RENDERER Influenza, adult 11/26/2024 11/26/2024 12/03/2024 3:07 AM OLEO HASHER AND RENDERER documented as of this encounter Care Teams Rail Setter Relationship Specialty Start Date End Date Anival Bañuelos MD [address] [place] [address] PCP - General 01/28/17 Zacarias Garcia MD [address] [place] [address] Referring Physician Orthopedic Surgery 05/28/18 Christian Banegas MD [address] [facility] [address] [place] [address] Consulting Physician Endocrinology 05/31/19 Jesusita Montiel MD [address] [place] [address] Plate Driller Obstetrics and Gynecology 02/05/21 [place] [address] [address] Consulting Physician Rheumatology 02/14/22 documented as of this encounter
--- OUTSIDE RECORDS SUMMARY | 2024-12-12 14:33 | XMS_ITS | Encounter Summary ---
Author Organization [facility] Address [address] [place] [address] Phone Care Team Providers Care Smocking Machine Operator Name Role Phone Edda, Anival Siddiqui MD Primary Care Provider [phone] Jasbir Mac MD Unavailable [phone] Zacarias Garcia MD Unavailable [phone] Christian Banegas MD Unavailable [phone] Jesusita Montiel MD Unavailable Cata Nicole MD Unavailable Encounter Details Date Type Department Care Team (Late st Contact Info) Description 04/10/2017 Orders Only [facility] [address] [place] [address] Sonam Chapman LPN Social History Tobacco Use Types Packs/Day Years Used Date Smoking Tobacco: Never Alcohol Use Standard Drinks/Week Comments No 0 (1 standard drink = 0.6 oz pur e alcohol) Comments Unknown Sex and Gender Information Value Date Recorded Sex Assigned at Not on file Legal Sex Female 12:21 PM SUPERVISOR EDGING Gender Identity Not on file Sexual Orientation [...] COVID: Suspected 01/02/2021 01/02/2021 01/02/2021 2:30 PM SUPERVISOR EDGING COVID: Suspected 01/04/2021 01/04/2021 01/04/2021 2:21 PM SUPERVISOR EDGING COVID: Suspected 02/08/2022 02/08/2022 02/08/2022 10:56 AM CDT COVID: Suspected 10/29/2023 10/29/2023 10/29/2023 6:54 PM SUPERVISOR EDGING COVID: Suspected 11/20/2023 11/20/2023 11/20/2023 1:14 PM SUPERVISOR EDGING COVID: Suspected 03/14/2024 03/14/2024 03/14/2024 12:54 PM CDT COVID: Suspected 11/26/2024 11/26/2024 11/26/2024 7:03 PM SUPERVISOR EDGING Influenza, adult 11/26/2024 11/26/2024 12/03/2024 3:07 AM SUPERVISOR EDGING documented as of this encounter Care Teams Smocking Machine Operator Relationship Specialty Start Date End Date Anival Bañuelos MD [address] [place] [address] PCP - General 01/28/17 Jasbir Mac MD [address] [facility] [address] [place] [address] Referring Physician Obstetrics and Gynecology 05/28/18 02/04/21 Zacarias Garcia MD [address] [facility] [address] [place] [address] Referring Physician Orthopedic Surgery 05/28/18 Christian Banegas MD [address] [facility] [address] [place] [address] Consulting Physician Endocrinology 05/31/19 Jesusita Montiel MD 1 [facility] [place] [address] Program And Research Coordinator Obstetrics and Gynecology 02/05/21 [place] [address] [facility] [address] [place] [address] Consulting Physician Rheumatology 02/14/22 documented as of this encounter
--- OUTSIDE RECORDS SUMMARY | 2024-12-12 14:33 | XMS_ITS | Encounter Summary ---
Author Organization [facility] Address [address] [place] [address] Phone Care Team Providers Care Optometric Coordinator Name Role Phone Edda Anival Siddiqui MD Primary Care Provider [phone] Zacarias Garcia MD Unavailable [phone] Christian Banegas MD Unavailable [phone] Jesusita Montiel MD Unavailable [phone] Cata Nicole MD Unavailable Encounter Details Date Type Department Care Team (Late st Contact Info) Description 12/11/2022 Orders Only [facility] [address] [place] [address] Scanning, Provider Social History Tobacco [...] on file Legal Sex Female 12:21 PM MUSEUM EXHIBIT TECHNICIAN Gender Identity Not on file Sexual Orientation [...] COVID: Suspected 10/29/2023 10/29/2023 10/29/2023 6:54 PM MUSEUM EXHIBIT TECHNICIAN COVID: Suspected 11/20/2023 11/20/2023 11/20/2023 1:14 PM MUSEUM EXHIBIT TECHNICIAN COVID: Suspected 03/14/2024 03/14/2024 03/14/2024 12:54 PM CDT COVID: Suspected 11/26/2024 11/26/2024 11/26/2024 7:03 PM MUSEUM EXHIBIT TECHNICIAN Influenza, adult 11/26/2024 11/26/2024 12/03/2024 3:07 AM MUSEUM EXHIBIT TECHNICIAN documented as of this encounter Care Teams Optometric Coordinator Relationship Specialty Start Date End Date Anival Bañuelos MD [address] [place] [address] PCP - General 01/28/17 Zacarias Garcia MD [address] [place] [address] Referring Physician Orthopedic Surgery 05/28/18 Christian Banegas MD 4 [facility] [place] [address] Consulting Physician Endocrinology 05/31/19 Jesusita Montiel MD [address] [place] [address] Tab Card Press Operator Obstetrics and Gynecology 02/05/21 [place] [address] [address] Consulting Physician Rheumatology 02/14/22 documented as of this encounter
--- OUTSIDE RECORDS SUMMARY | 2024-12-12 14:33 | XMS_ITS | Encounter Summary ---
Author Organization [facility] Address [address] [place] [address] Phone Care Team Providers Care Fuel Handler Name Role Phone Edda Anival Siddiqui MD Primary Care Provider [phone]- [phone] Jasbir Mac MD Unavailable [phone] Zacarias Garcia MD Unavailable [phone] Christian Banegas MD Unavailable [phone] Jesusita Montiel MD Unavailable Cata Nicole MD Unavailable Encounter Details Date Type Department Care Team (Late st Contact Info) Description 08/15/2020 Orders Only [facility] [address] [place] [address] Scanning, Provider Social History Tobacco Use Types Packs/Day Years Used Date Smoking Tobacco: Never Smokeless Tobacco: Never Alcohol Use Standard Drinks/Week Comments No 0 (1 standard drink = 0.6 oz pur e alcohol) Comments No Sex and Gender Information Value Date Recorded Sex Assigned at Not on file Legal Sex Female 12:21 PM ENGRAVER HAND HARD METALS Gender Identity Not on file Sexual Orientation [...] COVID: Suspected 01/02/2021 01/02/2021 01/02/2021 2:30 PM ENGRAVER HAND HARD METALS COVID: Suspected 01/04/2021 01/04/2021 01/04/2021 2:21 PM ENGRAVER HAND HARD METALS COVID: Suspected 02/08/2022 02/08/2022 02/08/2022 10:56 AM CDT COVID: Suspected 10/29/2023 10/29/2023 10/29/2023 6:54 PM ENGRAVER HAND HARD METALS COVID: Suspected 11/20/2023 11/20/2023 11/20/2023 1:14 PM ENGRAVER HAND HARD METALS COVID: Suspected 03/14/2024 03/14/2024 03/14/2024 12:54 PM CDT COVID: Suspected 11/26/2024 11/26/2024 11/26/2024 7:03 PM ENGRAVER HAND HARD METALS Influenza, adult 11/26/2024 11/26/2024 12/03/2024 3:07 AM ENGRAVER HAND HARD METALS documented as of this encounter Care Teams Fuel Handler Relationship Specialty Start Date End Date Anival Bañuelos MD [address] [address] PCP - General 01/28/17 Jasbir Mac MD [address] [place] [address] Referring Physician Obstetrics and Gynecology 05/28/18 02/04/21 Zacarias Garcia MD [address] [address] Referring Physician Orthopedic Surgery 05/28/18 Christian Banegas MD [address] [place] [address] [address] [place] [address] Consulting Physician Endocrinology 05/31/19 Jesusita Montiel MD 1 [facility] [place] [address] Gun Mechanic Obstetrics and Gynecology 02/05/21 [place] [address] [facility] [address] [place] [address] Consulting Physician Rheumatology 02/14/22 documented as of this encounter
--- OUTSIDE RECORDS SUMMARY | 2024-12-12 14:33 | XMS_ITS | Encounter Summary ---
Author Organization [facility] Address [address] [place] [address] Phone Care Team Providers Care User Support Analyst Name Role Phone Edda Anival Siddiqui MD Primary Care Provider [phone] Zacarias Garcia MD Unavailable [phone] Christian Banegas MD Unavailable [phone] Jesusita Montiel MD Unavailable Cata Nicole MD Unavailable Encounter Details Date Type Department Care Team (Late st Contact Info) Description 01/09/2023 Orders Only [facility] [address] [place] [address] Scanning, Provider Social History Tobacco [...] on file Legal Sex Female 12:21 PM YARN MERCERIZER OPERATOR Gender Identity Not on file Sexual [...] COVID: Suspected 10/29/2023 10/29/2023 10/29/2023 6:54 PM YARN MERCERIZER OPERATOR COVID: Suspected 11/20/2023 11/20/2023 11/20/2023 1:14 PM YARN MERCERIZER OPERATOR COVID: Suspected 03/14/2024 03/14/2024 03/14/2024 12:54 PM CDT COVID: Suspected 11/26/2024 11/26/2024 11/26/2024 7:03 PM YARN MERCERIZER OPERATOR Influenza, adult 11/26/2024 11/26/2024 12/03/2024 3:07 AM YARN MERCERIZER OPERATOR documented as of this encounter Care Teams User Support Analyst Relationship Specialty Start Date End Date Anival Bañuelos MD [address] [place] [address] PCP - General 01/28/17 Zacarias Garcia MD [address] [place] [address] Referring Physician Orthopedic Surgery 05/28/18 Christian Banegas MD [address] [facility] [place] [address] Consulting Physician Endocrinology 05/31/19 Jesusita Montiel MD [address] [place] [address] Steel Erector Obstetrics and Gynecology 02/05/21 [place] [id number] [address] Consulting Physician Rheumatology 02/14/22 documented as of this encounter
--- OUTSIDE RECORDS SUMMARY | 2024-12-12 14:33 | XMS_ITS | Referral Summary ---
Author Organization [facility] [address] Address [address] [place] [address] Phone Care Team Providers Care Traffic Warehouse Supervisor Name Role Phone Anival Bañuelos MD Primary Care Provider [phone] Zacarias Garcia MD Unavailable [phone] Christian Banegas MD Unavailable [phone] Jesusita Montiel MD Unavailable Cata Nicole MD Unavailable Encounters Date Type Department Care Team Description 11/26/2024 6:45 PM ELECTRICAL AND INSTRUMENT ENGINEER Office Visit [facility] [address] [address] Naty Stewart NP Acute cough (Primary Dx) 10/29/2024 [facility]phone [facility] [address] [place] [address] Anival Bañuelos MD 10/25/2024 Telephone [facility] [address] [place] [address] Janel Alexander, RN 10/22/2024 [facility]phone [facility] [address] [place] [address] Sonya Wilson RN 10/21/2024 Telephone [facility] [address] [place] [address] Janel Alexander, ALVINO 10/21/2024 11:20 AM ELECTRICAL AND INSTRUMENT ENGINEER Lab [facility] [address] [place] [address] Morbid obesity with BMI of 40.0-44.9, adult (HCC); Benign essential HTN 10/21/2024 10:45 AM ELECTRICAL AND INSTRUMENT ENGINEER Office Visit [facility] [address] [place] [address] Anival Bañuelos MD Morbid obesity with BMI of 40.0-44.9, adult (HCC) (Primary Dx); Benign essential HTN 10/21/2024 Telephone [facility] [address] [place] [address] Anival Bañuelos MD Hypertension 10/06/2024 Telephone [facility] [address] [place] [address] Janel Alexander, RN 09/27/2024 Telephone [facility] [address] [place] [address] Anival Bañuelos MD 09/22/2024 8:10 AM ELECTRICAL AND INSTRUMENT ENGINEER - 09/22/2024 11:59 PM ELECTRICAL AND INSTRUMENT ENGINEER Hospital Encounter [facility] [address] [place] [address] Rash Discharge Disposition: Discharge to home or self care 09/22/2024 8:00 AM ELECTRICAL AND INSTRUMENT ENGINEER Office Visit [facility] [address] [place] [address] Anival Bañuleos MD Rash (Primary Dx); Melina albicans infection 09/20/2024 Telephone [facility] [address] [place] [address] Anival Bañuelos MD from Last 3 Months Allergies Active [...] 09/22/2024 Assessment & Plan (09/22/2024 10:35 AM ELECTRICAL AND INSTRUMENT ENGINEER): Etiology / pathogenesis was discussed today . [...] 02/28/2024 Assessment & Plan (10/21/2024 11:18 AM ELECTRICAL AND INSTRUMENT ENGINEER): GOAL BP IS 130/80 OR LESS CONTINUE [...] 10/29/2023 Assessment & Plan (10/29/2023 7:03 PM ELECTRICAL AND INSTRUMENT ENGINEER): URI symptoms for 2 weeks. Tested negative [...] 01/02/2021 Assessment & Plan (01/02/2021 3:06 PM ELECTRICAL AND INSTRUMENT ENGINEER): Patient presents with headache, cough, congestion and [...] 11/08/2020 Assessment & Plan (11/08/2020 9:38 AM ELECTRICAL AND INSTRUMENT ENGINEER): Pt started with tingling and then pain [...] aspiration biopsy demonstrated atypia of undetermined significance, [place] category lll. Patient is exhibiting no local [...] on file Legal Sex Female 12:21 PM ELECTRICAL AND INSTRUMENT ENGINEER Gender Identity Not on file Sexual Orientation Straight 05/27/2024 1: 34 PM CDT Occupation Industry Job Start Date Job End Date Not on file Not on file Not on file Not on file Last Filed Vital Signs Vital Sign Reading Time Taken Comments Blood Pressure 124/74 11/26/2024 6:46 PM ELECTRICAL AND INSTRUMENT ENGINEER Pulse 93 11/26/2024 6:46 PM ELECTRICAL AND INSTRUMENT ENGINEER Temperature 36.8 C (98.3 F) 11/26/2024 6:46 PM ELECTRICAL AND INSTRUMENT ENGINEER Respiratory Rate 20 11/26/2024 6:46 PM ELECTRICAL AND INSTRUMENT ENGINEER Oxygen Saturation 98% 11/26/2024 6:46 PM ELECTRICAL AND INSTRUMENT ENGINEER Inhaled Oxygen Concentration - - Weight 95.7 kg (211 lb) 11/26/2024 6:46 PM ELECTRICAL AND INSTRUMENT ENGINEER Height 152.4 cm (5') 11/26/2024 6:46 PM ELECTRICAL AND INSTRUMENT ENGINEER Body Mass Index 41.21 11/26/2024 6:46 PM ELECTRICAL AND INSTRUMENT ENGINEER Plan of Treatment Not on file Procedures Procedure Name Priority Date/Time Associated Diagnosis Comments POC INFLUENZA A/B, COVID-19 ANTIGEN Routine 11/26/2024 7:01 PM ELECTRICAL AND INSTRUMENT ENGINEER Acute cough IRON PROFILE W/ IBC Routine 11/10/2024 9 :21 AM ELECTRICAL AND INSTRUMENT ENGINEER Anemia, unspecified type CBC WITH AUTO DIFFERENTIAL Routine 11/10/2024 9:21 AM ELECTRICAL AND INSTRUMENT ENGINEER Anemia, unspecified type EGFR Routine 10/21/2024 11:18 AM ELECTRICAL AND INSTRUMENT ENGINEER Morbid obesity with BMI of 40.0-44.9, adult (HCC) Benign essential HTN DIFFERENTIAL AUTO Routine 10/21/2024 11: 18 AM ELECTRICAL AND INSTRUMENT ENGINEER Morbid obesity with BMI of 40.0-44.9, adult (HCC) Benign essential HTN PRO B-TYPE NATRIURETIC PEPTIDE Routine 10/21/2024 11:18 AM ELECTRICAL AND INSTRUMENT ENGINEER Morbid obesity with BMI of 40.0-44.9, adult (HCC) Benign essential HTN CBC WITH AUTO DIFFERENTIAL Routine 10/21/2024 11:18 AM ELECTRICAL AND INSTRUMENT ENGINEER Morbid obesity with BMI of 40.0-44.9, adult (HCC) Benign essential HTN BASIC METABOLIC PANEL Routine 10/21/2024 11:18 AM ELECTRICAL AND INSTRUMENT ENGINEER Morbid obesity with BMI of 40.0-44.9, adult (HCC) Benign essential HTN MYCOLOGY (FUNGAL) CULTURE Routine 09/22/2024 8:10 AM ELECTRICAL AND INSTRUMENT ENGINEER Rash SCREENING MAMMOGRAM BILATERAL W RAMIREZ Schedule Routine, Read Routine (OP Routine) 04/09/2024 3:33 PM CDT Screening mammogram for breast cancer from Last 3 Months or Most Recently Relevant to Health Maintenance Results * (ABNORMAL) POC Influenza A/B, COVID-19 antigen (11/26/2024 7:01 PM ELECTRICAL AND INSTRUMENT ENGINEER) Influenza A Ag, POC Positive(A) Negative [facility] Influenza B Ag, POC Negative Negative [facility] COVID-19 Ag POC Presumptive Negative Presumptive Negative, Invalid [facility] Nasal 11/26/2024 7:01 PM ELECTRICAL AND INSTRUMENT ENGINEER us Naty Stewart NP POINT OF CARE TEST ORDERABLES F inal Result Performing Organization Address City/State/[facility] Co de Phone Number [facility] [address] [place] [address] * Iron profile w/ IBC (11/10/2024 9:21 AM ELECTRICAL AND INSTRUMENT ENGINEER) Iron 75 40 - 190 mcg/dL [facility] TIBC 303 250 - 450 mcg/dL (calc) [facility] Iron saturation 25 16 - 45 % (calc) [facility] Blood 11/10/2024 9:21 AM ELECTRICAL AND INSTRUMENT ENGINEER 11/11/2024 6:04 AM ELECTRICAL AND INSTRUMENT ENGINEER Narrative [facility] - 11/11/2024 8:25 AM ELECTRICAL AND INSTRUMENT ENGINEER FASTING:YES FASTING: YES us Anival Bañuelos MD LAB BLOOD ORDERABLES Final Result [facility] [address] [address] * (ABNORMAL) CBC with auto differential (11/10/2024 9:21 AM ELECTRICAL AND INSTRUMENT ENGINEER) WBC 5.4 3.8 - 10.8 Thousand/u L [...] [facility] Blood 11/10/2024 9:21 AM ELECTRICAL AND INSTRUMENT ENGINEER 11/11/2024 6:04 AM ELECTRICAL AND INSTRUMENT ENGINEER Narrative [facility] - 11/11/2024 8:25 AM ELECTRICAL AND INSTRUMENT ENGINEER FASTING:YES FASTING: YES Anival Bañuelos MD LAB BLOOD ORDERABLES Final Result Performing Organization Address City/[facility]/ZIP Co de Phone Number CECELIA [email or web address] [address] [address] [address] * eGFR (10/21/2024 11:18 AM ELECTRICAL AND INSTRUMENT ENGINEER) eGFR >90 >=60 mL/min/1. 73 m2 Comment: [...] was last reviewed 2021. Testing performed by: [facility], [address] [place] [address]., [address] Blood 10/21/2024 11:1 8 AM ELECTRICAL AND INSTRUMENT ENGINEER 10/21/2024 7:49 PM ELECTRICAL AND INSTRUMENT ENGINEER us Anival Bañuelos MD LAB BLOOD ORDERABLES Final Result Performing Organization Address City/[facility]/ZIP Co de Phone Number MARIANNA [address] [facility] Department [place] [address] * Differential, auto (10/21/2024 11:18 AM ELECTRICAL AND INSTRUMENT ENGINEER) Neutrophil abs 3.9 1.5 - 6.5 K/cumm Comment:Testing performed by : [facility], [address] [place] [address]., [address] Imm gran abs 0.0 0.0 - 0.1 K/cumm CERNER CH Comment:Testing performed by : [facility], [address] [place] [address]., [address] Lymphocyte abs 1.4 0.8 - 3.3 K/cumm C[facility] CH Comment:Testing performed by : [facility], [address] [place] [address]., [address] Monocyte abs 0.4 0.2 - 0.8 K/cumm [facility] CH Comment:Testing performed by : [address] [address] Eosinophil abs 0.2 0.0 - 0.5 K/cumm C[facility] CH Comment:Testing performed by : [address], [address] Basophil abs 0.1 0.0 - 0.1 K/cumm C[facility] CH Comment:Testing performed by : [address] [address] Neutrophil pct 65.5 % CERNER CH Comment: Interpretive Data Percent cell count reference ranges are not reported, since discordance with absolute values may lead to misinterpretation of CBC data. Current Interpretive Data was last revised on 2018. Testing performed by: [address] [address] Imm gran pct 0.3 % [facility] CH Comment: Interpretive Data Percent cell count reference ranges are not reported, since discordance with absolute values may lead to misinterpretation of CBC data. Current Interpretive Data was last revised on 2018. Testing performed by: [address] [address] Lymphocyte pct 23.8 % C[facility] CH Comment: Interpretive Data Percent cell count reference ranges are not reported, since discordance with absolute values may lead to misinterpretation of CBC data. Current Interpretive Data was last revised on 2018. Testing performed by: [address], [address] Monocyte pct 6.1 % [facility] CH Comment: Interpretive Data Percent cell count reference ranges are not reported, since discordance with absolute values may lead to misinterpretation of CBC data. Current Interpretive Data was last revised on 2018. Testing performed by: [facility], [address] [place] [address]., [address] Eosinophil pct 3.5 % MARIANNA Comment: Interpretive Data Percent cell count reference ranges are not reported, since discordance with absolute values may lead to misinterpretation of CBC data. Current Interpretive Data was last revised on 2018. Testing performed by: [facility], [address] [place] [address]., [address] Basophil pct 0.8 % MARIANNA Comment: Interpretive Data Percent cell count reference ranges are not reported, since discordance with absolute values may lead to misinterpretation of CBC data. Current Interpretive Data was last revised on 2018. Testing performed by: [facility], [address] [place] [address]., [address] Blood 10/21/2024 11:1 8 AM ELECTRICAL AND INSTRUMENT ENGINEER 10/21/2024 7:27 PM ELECTRICAL AND INSTRUMENT ENGINEER us Anival Bañuelos MD LAB BLOOD ORDERABLES Final Result MARIANNA [address] Department [place] [address] * Pro B-type natriuretic peptide (10/21/2024 11:18 AM ELECTRICAL AND INSTRUMENT ENGINEER) NT-proBNP 260 <=300 pg/mL Comment: Interpretive Comments: [...] Last Revised Date: 2018. Testing performed by: [address] [address] Blood 10/21/2024 11:1 8 AM ELECTRICAL AND INSTRUMENT ENGINEER 10/21/2024 7:27 PM ELECTRICAL AND INSTRUMENT ENGINEER Anival Bañuelos MD LAB BLOOD ORDERABLES Final Result [address] Department [place] [address] * (ABNORMAL) CBC with auto differential (10/21/2024 11:18 AM ELECTRICAL AND INSTRUMENT ENGINEER) Pathologist [facility] WBC 6.0 3.8 - 9.9 K/cumm Comment:Testing performed by : [address] [address] Hgb 10.8(L) 11.9 - 15.5 g/dL MARIANNA Comment:Testing performed by : [address] [address] Hct 34.6(L) 35.6 - 45.5 % MARIANNA Comment:Testing performed by : [address] [address] Plt 305 150 - 400 K/cumm MARIANNA Comment:Testing performed by : [address], [address] MPV 10.7 9.1 - 12.3 fL MARIANNA Comment:Testing performed by : [facility], [address] [place] [address]., [address] RBC 3.93 3.90 - 5.20 M/cumm C[facility] CH Comment:Testing performed by : [facility], [address] [place] [address]., [address] MCV 88.0 81.3 - 96.4 fL [facility] Comment:Testing performed by : [address], [address] MCH 27.5 27.1 - 33.3 pg CERNER Comment:Testing performed by : [facility], [address] [place] [address], [address] MCHC 31.2(L) 32.3 - 35.7 g/dL STEVIENER Comment:Testing performed by : [address], [address] RDW CV 13.8 11.1 - 14.9 % [facility] Comment:Testing performed by : [address], [address] RDW SD 44.7 35.7 - 48.1 fL [facility] Comment:Testing performed by : [address], [address] NRBC abs 0.00 0.00 - 0.01 K/cumm [facility] Comment:Testing performed by : [address], [address] Blood 10/21/2024 11:1 8 AM ELECTRICAL AND INSTRUMENT ENGINEER 10/21/2024 7:27 PM ELECTRICAL AND INSTRUMENT ENGINEER Anival Bañuelos MD LAB BLOOD ORDERABLES Final Result [address] Department [place] [address] * Basic metabolic panel (10/21/2024 11:18 AM ELECTRICAL AND INSTRUMENT ENGINEER) Sodium 145 135 - 145 mmol/L Comment:Testing performed by : [address], [address] Potassium, pl 3.9 3.3 - 4.9 mmol/L MARIANNA Comment:Testing performed by : [facility] [address] [place] [address]., [address] Chloride 109 97 - 110 mmol/L CERNER Comment:Testing performed by : [address] [address] CO2 24 22 - 32 mmol/L CERNER Comment:Testing performed by : [address] [address] Anion gap 12 2 - 15 mmol/L [facility] Comment:Testing performed by : [address], [address] BUN 19 6 - 25 mg/dL [facility] Comment:Testing performed by : [address], [address] Creatinine 0.74 0.60 - 1.10 mg/dL [facility] Comment:Testing performed by : [address], [address] Glucose 83 70 - 199 mg/dL [facility] Comment: Interpretive Data Fasting glucose >/= 126 [...] was last revised 2022. Testing performed by: [address] [address] Calcium 8.6 8.5 - 10.3 mg/dL [facility] Comment:Testing performed by : [address] [address] Blood 10/21/2024 11:1 8 AM ELECTRICAL AND INSTRUMENT ENGINEER 10/21/2024 7:27 PM ELECTRICAL AND INSTRUMENT ENGINEER Anival Bañuelos MD LAB BLOOD ORDERABLES Final Result [address] Department [place] [address] * (ABNORMAL) Mycology (fungal) culture Drainage Breast (09/22/2024 8:10 AM ELECTRICAL AND INSTRUMENT ENGINEER) Report Final Report: No growth of fungus * * * * * * * * * * * * * * * * * * * * Few Streptococcus pyogenes (Group A Streptococci) Streptococcus pyogenes is uniformly susceptible to beta-lactam antibiotics and vancomycin. Routine susceptibility testing is not performed. (.) Comment:Testing performed by : [facility], [address] [place]., [address] Organism STREPTOCOCCUS PYOGENES (GROUP A STREPTOCOCCI) MARIANNA Drainage (Breast) 09/22/2024 8:10 AM ELECTRICAL AND INSTRUMENT ENGINEER 09/22/2024 2:30 PM ELECTRICAL AND INSTRUMENT ENGINEER Narrative [facility] - 10/21/2024 8:09 AM ELECTRICAL AND INSTRUMENT ENGINEER Under breasts Specimen received on an ESwab. Testing performed by [facility] ([phone]). Anival Bañuelos MD LAB MICROBIOLOGY - GENERAL ORDERABLES Final Result [facility] [address] Department [place] [address] * Screening Mammogram Bilateral W Ramirez (04/09/2024 [...] Most Recently Relevant to Health Maintenance Insurance [facility] H[facility]/PPO Address: [place] [address] 0 (Work) [address] [address] Care Teams Traffic Warehouse Supervisor Relationship Specialty Start Date End Date Anival Bañuelos MD [address] [place] [address] PCP - General 01/28/17 Zacarias Garcia MD [address] [place] [address] Referring Physician Orthopedic Surgery 05/28/18 Christian Banegas MD [address] [place] [address] [place] [address] Consulting Physician Endocrinology 05/31/19 Jesusita Montiel MD [address] [facility] [place] [address] Cupola Charger Obstetrics and Gynecology 02/05/21 [place] [address] [address] Consulting Physician Rheumatology 02/14/22
--- OUTSIDE RECORDS SUMMARY | 2024-12-12 14:33 | XMS_ITS | Continuity of Care Document ---
Author Organization [facility] Address [address] [place] [address] Phone Care Team Providers Care Cylinder Handler Name Role Phone Allie COREAS, Wolf Unavailable Unavailable Procedures Procedure Date LOWER EXTREM CAT W/O CONTRAST 2 Advance Directives Directive Yes / No Effective Date File Name No Information Encounters Encounter Description Practice Location Reason(s) For Visit Diagnoses Date Provider Providers Copied on Encounter [facility], [address], [place], [place], [id number], [place] tel:[phone] [facility] No Information Allie Bloom. [address] , [place], [place], [id number], [place]. tel:[phone] Referring Provider: Calvin Gabriel, [address] [place], [address]. tel:[phone] Family History Family Member Type Diagnosis Age At Onset No Information Payers Payer name Insurance type Covered republican ID Authoriza tion(s) No Information Social History [...]
[2024-12-12] MEDS: HYDROmorphone HCL INJ (*CRX) 2 MG/ML VIAL 0.5 MG IM (15:26)
[2024-12-12 15:40] VITALS: BP 141/99; PULSE 86; RESP 18; TEMP 36.8; O2SAT 97
== END 2024-12-12 15:42 | disposition home or self-care (01) ==
PROVIDERS: Emergency Provider Internal Medicine Critical Care Medicine; PCP Internal Medicine Infectious Disease
DX: M47.816 Spondylosis without myelopathy or radiculopathy, lumbar region (principal); E03.9 Hypothyroidism, unspecified; Z79.899 Other long term (current) drug therapy
CPT/HCPCS: 72131; 96372; 99284; J1171; J1885

== ENCOUNTER 2024-12-31 18:41 | Emergency (ER) | payer OTHER, SELFPAY ==
[2024-12-31 18:41] VITALS: BP 149/93; PULSE 94; RESP 16; TEMP 36.8; O2SAT 100
--- OUTSIDE RECORDS SUMMARY | 2024-12-31 18:44 | XMS_ITS | Continuity of Care Document ---
Author Organization [facility] Address [address] [place] [address] Phone Care Team Providers Care Examiner Of Currency Name Role Phone Allie COREAS, Wolf Unavailable Unavailable Procedures Procedure Date LOWER EXTREM CAT W/O CONTRAST 2 Advance Directives Directive Yes / No Effective Date File Name No Information Encounters Encounter Description Practice Location Reason(s) For Visit Diagnoses Date Provider Providers Copied on Encounter [facility], [address], [place], [place], [id number], [place] tel:[phone] [facility] No Information Allie Bloom. [address] , [place], [place], [address], [place]. tel:[phone] Referring Provider: Calvin Gabriel, [address] [place], [address]. tel:[phone] Family History Family Member Type Diagnosis Age At Onset No Information Payers Payer name Insurance type Covered democrat ID Authoriza tion(s) No Information Social History [...]
--- OUTSIDE RECORDS SUMMARY | 2024-12-31 18:44 | XMS_ITS | Encounter Summary ---
Author Organization [facility] Address [address] [place] [address] Phone Care Team Providers Care Cable Tester Name Role Phone Edda Anival Siddiqui MD Primary Care Provider [phone] Zacarias Garcia MD Unavailable [phone] Christian Banegas MD Unavailable [phone] Jesusita Montiel MD Unavailable Cata Nicole MD Unavailable Encounter Details Date Type Department Care Team (Late st Contact Info) Description 02/26/2023 Orders Only [facility] [address] [place] [address] Scanning, Provider Social History Tobacco [...] on file Legal Sex Female 12:21 PM SCHEDULE HANGER Gender Identity Not on file Sexual Orientation [...] COVID: Suspected 10/29/2023 10/29/2023 10/29/2023 6:54 PM SCHEDULE HANGER COVID: Suspected 11/20/2023 11/20/2023 11/20/2023 1:14 PM SCHEDULE HANGER COVID: Suspected 03/14/2024 03/14/2024 03/14/2024 12:54 PM CDT COVID: Suspected 11/26/2024 11/26/2024 11/26/2024 7:03 PM SCHEDULE HANGER Influenza, adult 11/26/2024 11/26/2024 12/03/2024 3:07 AM SCHEDULE HANGER documented as of this encounter Care Teams Cable Tester Relationship Specialty Start Date End Date Anival Bañuelos MD [address] [place] [address] PCP - General 01/28/17 Zacarias Garcia MD [address] [place] [address] Referring Physician Orthopedic Surgery 05/28/18 Chritsian Banegas MD [address] [place] [address] Consulting Physician Endocrinology 05/31/19 Jesusita Montiel MD [address] [place] [address] Hand Touch Up Painter Obstetrics and Gynecology 02/05/21 [place] [id number] [address] Consulting Physician Rheumatology 02/14/22 documented as of this encounter
--- OUTSIDE RECORDS SUMMARY | 2024-12-31 18:44 | XMS_ITS | Clinical Summary ---
Author Organization [facility] [address] Address [address] [place] [address] Phone Care Team Providers Care Sizing Machine And Drier Operator Name Role Phone Edda Anival Siddiqui MD Primary Care Provider [phone] Zacarias Garcia MD Unavailable [phone] Christian Banegas MD Unavailable [phone] Jesusita Montiel MD Unavailable Cata Nicole MD Unavailable Allergies Active Allergy [...] 30 g 3 09/22/20 24 025 Active triamterene-hyd roCHLOROthiazid e 37.5-25 mg per tablet/capsule PRN 20 tablet/caps ule 10/21/20 24 Active lisinopriL (PRINIVIL,ZESTR IL) 5 mg tabletIndicatio ns:Benign essential HTN TAKE ONE TABLET BY MOUTH DAILY 30 tablet 3 11/08/19 25 Active albuterol HFA (PROVENTIL HFA,VENTOLIN HFA,PROAIR HFA) 90 mcg/actuation inhaler Inhale 2 puffs every 6 (six) hours as needed for wheezing 1 each 11/26/19 25 026 Active FLUoxetine (PROzac) 20 mg capsuleIndicati ons:Anxiety TAKE ONE CAPSULE BY MOUTH DAILY 30 capsule 3 12/08/19 25 Active FLUoxetine (PROzac) 20 mg capsule TAKE ONE CAPSULE BY MOUTH DAILY 30 capsule 3 07/26/20 24 025 Discontinued methylPREDNISol one (MEDROL DOSEPACK) 4 mg DosepackIndicat ions:Other back pain, unspecified chronicity Take as directed on package. 21 tablet 12/14/19 25 025 Hospital, Clinic, or Other Facility Administered Medication Ordered Dose Route Frequency Start Date End Date Status triamcinolone (KENALOG) 40 mg/mL injection 40 mgIndications:Acute bilateral low back pain without sciatica 40 mg IM Once 12/17/2024 12/17/2024 Ended Active Problems Problem Noted Date Diagnosed Date Acute bilateral low back pain without sciatica 0 12/17/2024 Assessment & Plan (12/20/2024 6:05 PM SPRING TIER): SYMTPOMS ARE BETTER OK TO DO CHRIOPRACTIC IF NECESSARY Assessment & Plan (12/17/2024 5:47 PM SPRING TIER): CT OF THE SPINE WAS REVIEWED THERE IS NO SADDLE ANESTHESIA CURRENTLY ON STEROIDS ORALLY KENALOG 40 MG IM TIMES ONE CHIRO IS OK PT IS OK IF SYMTPMS GET WORSE WILL DO AN MRI OF THE L SPINE Morbid obesity with BMI of 40.0-44.9, adult 09/27 03/2024 Assessment & Plan (12/20/2024 6:05 PM SPRING TIER): CHRONIC AND STABLE 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 [...] 02/28/2024 Assessment & Plan (10/21/2024 11:18 AM SPRING TIER): GOAL BP IS 130/80 OR LESS CONTINUE [...] 10/29/2023 Assessment & Plan (10/29/2023 7:03 PM SPRING TIER): URI symptoms for 2 weeks. Tested negative [...] 01/02/2021 Assessment & Plan (01/02/2021 3:06 PM SPRING TIER): Patient presents with headache, cough, congestion and [...] 11/08/2020 Assessment & Plan (11/08/2020 9:38 AM SPRING TIER): Pt started with tingling and then pain [...] aspiration biopsy demonstrated atypia of undetermined significance, May category lll. Patient is exhibiting no local [...] PSA (psoriatic arthritis) 01/26/2009 Assessment & Plan (12/20/2024 6:05 PM SPRING TIER): SHE HAD USED MTX PLUS FOLIC ACID IN THE PAST CHECK ERS AND CRP WITH NEXT VISIT DISCUSSED PLAQUNIL WILL D/ W NEXT APPT Assessment & Plan (03/27/2024 10:55 AM CDT): [...] Encounters Date Type Department Care Team Description 12/20/2024 2:00 PM SPRING TIER Office Visit [facility] [address] [place] [address] Anival Bañuelos MD Morbid obesity with BMI of 40.0-44.9, adult (HCC) (Primary Dx); Acute bilateral low back pain without sciatica; PSA (psoriatic arthritis) (HCC) 12/17/2024 2:50 PM SPRING TIER Lab [facility] [address] [place] [address] Acute bilateral low back pain without sciatica 12/17/2024 2:30 PM SPRING TIER Ancillary Procedure [facility] [address] [place] [address] Constipation, unspecified constipation type 12/17/2024 1:30 PM SPRING TIER Office Visit [facility] [address] [place] [address] Anival Bañuelos MD Acute bilateral low back pain without sciatica (Primary Dx); Morbid obesity with BMI of 40.0-44.9, adult (HCC); Constipation, unspecified constipation type 12/14/2024 Orders Only [facility] Health Information Management [address] [place] [address] Scanning, Provider 12/14/2024 Telephone [facility] [address] [place] [address] Janel Alexander, ALVINO 11/26/2024 6:45 PM SPRING TIER Office Visit [facility] Care at [address] [phone] Naty Stewart NP Acute cough (Primary Dx) 10/29/2024 Telephone [facility] [address] [place] [address] Anival Bañuelos MD 10/25/2024 Telephone [facility] [address] [place] [address] Janel Alexander, ALVINO 10/22/2024 Telephone [facility] [address] [place] [address] Sonya Wilson, ALVINO 10/21/2024 11:20 AM SPRING TIER Lab [facility] [address] [place] [address] Morbid obesity with BMI of 40.0-44.9, adult (HCC); Benign essential HTN 10/21/2024 10:45 AM SPRING TIER Office [facility] [address] [place] [phone] Anival Bañuelos MD Morbid obesity with BMI of 40.0-44.9, adult (HCC) (Primary Dx); Benign essential HTN 10/21/2024 Telephone [facility] [address] [place] [phone] Janel Alexander RN 10/21/2024 Telephone [facility] [address] [place] [phone] Anival Bañuelos MD Hypertension 10/06/2024 Telephone [facility] [address] [place] [phone] Janel Alexander, ALVINO from Last 3 Months Immunizations Immunization Administration [...] History Relation Name Comments Hyperlipidemia Father Chivo Mixon choleste rol; Diabetes Maternal Grandfather Mark Anthony [...] on file Legal Sex Female 12:21 PM SPRING TIER Gender Identity Not on file Sexual Orientation [...] Sign Reading Time Taken Comments Blood Pressure 130/88 12/20/2024 2:13 PM SPRING TIER Pulse 108 12/20/2024 2:13 PM SPRING TIER Temperature 36.8 C (98.2 F) 12/20/2024 2:13 PM SPRING TIER Respiratory Rate 18 12/20/2024 2:13 PM SPRING TIER Oxygen Saturation 99% 12/20/2024 2:13 PM SPRING TIER Inhaled Oxygen Concentration - - Weight 94.5 kg (208 lb 6.4 oz) 12/20/2024 2:13 P M SPRING TIER Height 152.4 cm (5') 12/20/2024 2:13 PM SPRING TIER Body Mass Index 40.7 12/20/2024 2:13 PM SPRING TIER Plan of Treatment Health Maintenance Due Date [...] Procedure Name Priority Date/Time Associated Diagnosis Comments XR KUB Schedule Routine, Read Routine (OP Routine) 12/17/2024 2:53 PM SPRING TIER Constipation, unspecified constipation type URINALYSIS AND REFLEX TO MICROSCOPIC AND CULTURE Routine 12/17/2024 2:33 PM SPRING TIER Acute bilateral low back pain without sciatica SCAN - RADIOLOGY/IMAGING 12/14/2024 9:29 AM SPRING TIER POC INFLUENZA A/B, COVID-19 ANTIGEN Routine 11/26/2024 7:01 PM SPRING TIER Acute cough IRON PROFILE W/ IBC Routine 11/10/2024 9 :21 AM SPRING TIER Anemia, unspecified type CBC WITH AUTO DIFFERENTIAL Routine 11/10/2024 9:21 AM SPRING TIER Anemia, unspecified type EGFR Routine 10/21/2024 11:18 AM SPRING TIER Morbid obesity with BMI of 40.0-44.9, adult (HCC) Benign essential HTN DIFFERENTIAL AUTO Routine 10/21/2024 11: 18 AM SPRING TIER Morbid obesity with BMI of 40.0-44.9, adult (HCC) Benign essential HTN PRO B-TYPE NATRIURETIC PEPTIDE Routine 10/21/2024 11:18 AM SPRING TIER Morbid obesity with BMI of 40.0-44.9, adult (HCC) Benign essential HTN CBC WITH AUTO DIFFERENTIAL Routine 10/21/2024 11:18 AM SPRING TIER Morbid obesity with BMI of 40.0-44.9, adult (HCC) Benign essential HTN BASIC METABOLIC PANEL Routine 10/21/2024 11:18 AM SPRING TIER Morbid obesity with BMI of 40.0-44.9, adult (HCC) Benign essential HTN SCREENING MAMMOGRAM BILATERAL W RAMIREZ Schedule Routine, Read Routine (OP Routine) 04/09/2024 3:33 PM CDT Screening mammogram for breast cancer from Last 3 Months or Most Recently Relevant to Health Maintenance Results * XR Kub (12/17/2024 2:53 PM SPRING TIER) Anatomical Region Laterality Modality Body, Abdomen N/A Computed Radiogr aphy 12/23/2024 8:41 AM SPRING TIER Narrative 12/23/2024 8:43 AM SPRING TIER EXAM DESCRIPTION: XR KUB REASON FOR STUDY: Constipation Low back pain Constipation x 8 days Hx of gallbladder removed Hx of hysterectomy TECHNIQUE: Supine view COMPARISON: 10/13/2016 FINDINGS: Nonspecific gas pattern. Large stool burden throughout the colon. No unusual calcifications. Surgical clips right upper quadrant. Mild to moderate bony degenerative changes lumbosacral junction. IMPRESSION: Large stool burden throughout colon. THIS IS AN ELECTRONICALLY VERIFIED FINAL REPORT 12/23/2024 8:43 AM - Electronically signed by Jaime Shannon M.D. RB: RB Report ID: [id number] Reading Location: [id number] Procedure Note Jaime Shannon MD - 12/23/2024 EXAM DESCRIPTION: XR KUB REASON FOR STUDY: Constipation Low back pain Constipation x 8 days Hx of gallbladder removed Hx of hysterectomy TECHNIQUE: Supine view COMPARISON: 10/13/2016 FINDINGS: Nonspecific gas pattern. Large stool burden throughout the colon. No unusual calcifications. Surgical clips right upper quadrant. Mild to moderate bony degenerative changes lumbosacral junction. IMPRESSION: Large stool burden throughout colon. THIS IS AN ELECTRONICALLY VERIFIED FINAL REPORT 12/23/2024 8:43 AM - Electronically signed by Jaime Shannon M.D. RB: LOPEZ Report ID: [id number] Reading Location: [place] [address] Anival Bañuelos MD IMG XR PROCEDURES Final Re sult * Urinalysis reflex to microscopic and culture Urine, bladder (12/17/2024 2:33 PM SPRING TIER) Color, ur Yellow Yellow Comment:Testing performed by : [facility], [address] [place] [address]., [address] Clarity, ur Clear Clear [facility] Comment:Testing performed by : [facility], [address] [place] [address]., [address] Specific gravity, ur 1.009 1.003 - 1.030 [facility] Comment:Testing performed by : [address] [address] pH, urine 5.0 CERNER Comment: Interpretive Data U rine pH is affected by diet, medications, systemic acid-base disturbances, and renal tubular function. pH may affect urinary stone formation. For example, urine pH below 6.0 may help reduce the tendency for calcium phosphate stones and pH greater than 6.0 may reduce the tendency for uric acid stone formation. Source: [facility] [employer] Current Interpretive Data was last revised on 2017 Testing performed by: [address] [address] Protein, ur ql Negative Negative [facility] Comment:Testing performed by : [address], [address] Glucose, ur ql Negative Negative [facility] Comment:Testing performed by : [address], [address] Ketones, ur Negative Negative [facility] Comment:Testing performed by : [address], [address] Bilirubin, ur Negative Negative [facility] Comment:Testing performed by : [address], [address] Blood, ur Negative Negative C[facility]ER Comment:Testing performed by : [address] [address] Urobilinogen, ur <2.0 <2.0 mg/dL C[facility]ER Comment:Testing performed by : [address], [address] Nitrite, ur Negative Negative [facility] Comment:Testing performed by : [address], [address] Leukocyte esterase, ur Negative Negative [facility] Comment:Testing performed by : [address], [address] UA reflex comment Reflex conditions for microscopic UA and culture not met. [facility] Comment:Testing performed by : [address], [address] Urine, bladder 12/17/2024 2: 33 PM SPRING TIER 12/17/2024 7:01 PM SPRING TIER Anival Bañuelos MD LAB MICROBIOLOGY - GENERAL ORDERABLES Final Result MARIANNA SANCHEZ [address] Department [place] [address] * SCAN - RADIOLOGY/IMAGING (12/14/2024 9:29 AM SPRING TIER) Anatomical Region Laterality Modality Other Provider Scanning Final Result * (ABNORMAL) POC Influenza A/B, COVID-19 antigen (11/26/2024 7:01 PM SPRING TIER) [facility] Influenza A Ag, POC Positive(A) Negative [facility] Influenza B Ag, POC Negative Negative [facility] COVID-19 Ag POC Presumptive Negative Presumptive Negative, Invalid [facility] Nasal 11/26/2024 7:01 PM SPRING TIER Naty Stewart NP POINT OF CARE TEST ORDERABLES F inal Result Performing Organization Address [facility]/ZIP Co de Phone Number [facility] [address] [place] [address] * Iron profile w/ IBC (11/10/2024 9:21 AM SPRING TIER) [facility] Iron 75 40 - 190 mcg/dL [facility] TIBC 303 250 - 450 mcg/dL (calc) [facility] Iron saturation 25 16 - 45 % (calc) [facility] Blood 11/10/2024 9:21 AM SPRING TIER 11/11/2024 6:04 AM SPRING TIER Narrative [facility] - 11/11/2024 8:25 AM SPRING TIER FASTING:YES FASTING: YES Anival Bañuelos MD LAB BLOOD ORDERABLES Final Result [facility] [address] [place] [address] * (ABNORMAL) CBC with auto differential (11/10/2024 9:21 AM SPRING TIER) [facility] WBC 5.4 3.8 - 10.8 Thousand/u L [...] [facility] Blood 11/10/2024 9:21 AM SPRING TIER 11/11/2024 6:04 AM SPRING TIER Narrative [facility] - 11/11/2024 8:25 AM SPRING TIER FASTING:YES FASTING: YES Anival Bañuelos MD LAB BLOOD ORDERABLES Final Result Performing Organization Address City/[facility] Co de Phone Number [facility] [address] [place] [address] * eGFR (10/21/2024 11:18 AM SPRING TIER) eGFR >90 >=60 mL/min/1. 73 m2 Comment: [...] was last reviewed 2021. Testing performed by: [address] [address] Blood 10/21/2024 11:1 8 AM SPRING TIER 10/21/2024 7:49 PM SPRING TIER Anival Bañuelos MD LAB BLOOD ORDERABLES Final Result Performing Organization Address [facility] Co de Phone Number MARIANNA [address] [facility] Department [place] [address] * Differential, auto (10/21/2024 11:18 AM SPRING TIER) [facility] Neutrophil abs 3.9 1.5 - 6.5 K/cumm Comment:Testing performed by : [address] [address] Imm gran abs 0.0 0.0 - 0.1 K/cumm MARIANNA SANCHEZ Comment:Testing performed by : [address] [address] Lymphocyte abs 1.4 0.8 - 3.3 K/cumm [facility] Comment:Testing performed by : [facility], [address] [place] [address]., [address] Monocyte abs 0.4 0.2 - 0.8 K/cumm [facility] Comment:Testing performed by : [facility], [address] [place] [address]., [address] Eosinophil abs 0.2 0.0 - 0.5 K/cumm [facility] Comment:Testing performed by : [facility], [address] [place] [address]., [address] Basophil abs 0.1 0.0 - 0.1 K/cumm [facility] Comment:Testing performed by : [address] [address] Neutrophil pct 65.5 % [facility] Comment: Interpretive Data Percent cell count reference ranges are not reported, since discordance with absolute values may lead to misinterpretation of CBC data. Current Interpretive Data was last revised on 2018. Testing performed by: [facility], [address] [place] [address]., [address] Imm gran pct 0.3 % [facility] CH Comment: Interpretive Data Percent cell count reference ranges are not reported, since discordance with absolute values may lead to misinterpretation of CBC data. Current Interpretive Data was last revised on 2018. Testing performed by: [address] [address] Lymphocyte pct 23.8 % [facility] Comment: Interpretive Data Percent cell count reference ranges are not reported, since discordance with absolute values may lead to misinterpretation of CBC data. Current Interpretive Data was last revised on 2018. Testing performed by: [address] [address] Monocyte pct 6.1 % [facility] CH Comment: Interpretive Data Percent cell count reference ranges are not reported, since discordance with absolute values may lead to misinterpretation of CBC data. Current Interpretive Data was last revised on 2018. Testing performed by: [address] [address] Eosinophil pct 3.5 % [facility] CH Comment: Interpretive Data Percent cell count reference ranges are not reported, since discordance with absolute values may lead to misinterpretation of CBC data. Current Interpretive Data was last revised on 2018. Testing performed by: [facility], [address] [place] [address]., [address] Basophil pct 0.8 % MARIANNA SANCHEZ Comment: Interpretive Data Percent cell count reference ranges are not reported, since discordance with absolute values may lead to misinterpretation of CBC data. Current Interpretive Data was last revised on 2018. Testing performed by: [facility], [address] [place] [address]., [address] Blood 10/21/2024 11:1 8 AM SPRING TIER 10/21/2024 7:27 PM SPRING TIER us Anival Bañuelos MD LAB BLOOD ORDERABLES Final Result MARIANNA SANCHEZ [address] [facility] Department [place] [address] * Pro B-type natriuretic peptide (10/21/2024 11:18 AM SPRING TIER) NT-proBNP 260 <=300 pg/mL Comment: Interpretive Comments: [...] Last Revised Date: 2018. Testing performed by: [address] [address] Blood 10/21/2024 11:1 8 AM SPRING TIER 10/21/2024 7:27 PM SPRING TIER us Anival Bañuelos MD LAB BLOOD ORDERABLES Final Result [facility] [address] Department [place] [address] * (ABNORMAL) CBC with auto differential (10/21/2024 11:18 AM SPRING TIER) WBC 6.0 3.8 - 9.9 K/cumm Comment:Testing performed by : [address], [address] Hgb 10.8(L) 11.9 - 15.5 g/dL [facility] Comment:Testing performed by : [address], [address] Hct 34.6(L) 35.6 - 45.5 % MARIANNA Comment:Testing performed by : [address], [address] Plt 305 150 - 400 K/cumm MARIANNA Comment:Testing performed by : [address], [address] MPV 10.7 9.1 - 12.3 fL [facility] ELENA Comment:Testing performed by : [address], [address] RBC 3.93 3.90 - 5.20 M/cumm [facility] ELENA Comment:Testing performed by : [address], [address] MCV 88.0 81.3 - 96.4 fL [facility] ELENA Comment:Testing performed by : [address], [place]., [address] MCH 27.5 27.1 - 33.3 pg [facility] CH Comment:Testing performed by : [facility], [address] [place] [address], [address] MCHC 31.2(L) 32.3 - 35.7 g/dL [facility] Comment:Testing performed by : [facility], [address] [place] [address], [address] RDW CV 13.8 11.1 - 14.9 % [facility] Comment:Testing performed by : [facility], [address] [place] [address], [address] RDW SD 44.7 35.7 - 48.1 fL [facility] Comment:Testing performed by : [address], [address] NRBC abs 0.00 0.00 - 0.01 K/cumm MARIANNA CH Comment:Testing performed by : [address], [address] Blood 10/21/2024 11:1 8 AM SPRING TIER 10/21/2024 7:27 PM SPRING TIER Anival Bañuelos MD LAB BLOOD ORDERABLES Final Result MARIANNA [address] Department [place] [address] * Basic metabolic panel (10/21/2024 11:18 AM SPRING TIER) Sodium 145 135 - 145 mmol/L Comment:Testing performed by : [address], [address] Potassium, pl 3.9 3.3 - 4.9 mmol/L [facility] Comment:Testing performed by : [address], [address] Chloride 109 97 - 110 mmol/L [facility] ELENA CH Comment:Testing performed by : [address], [address] CO2 24 22 - 32 mmol/L [facility] Comment:Testing performed by : [address], [address] Anion gap 12 2 - 15 mmol/L MARIANNA Comment:Testing performed by : [facility], [address] [place] [address]., [address] BUN 19 6 - 25 mg/dL MARIANNA Comment:Testing performed by : [facility], [address] [place] [address]., [address] Creatinine 0.74 0.60 - 1.10 mg/dL MARIANNA Comment:Testing performed by : [address] [address] Glucose 83 70 - 199 mg/dL MARIANNA Comment: Interpretive Data Fasting glucose >/= 126 [...] was last revised 2022. Testing performed by: [facility], [address] [place] [address]., [address] Calcium 8.6 8.5 - 10.3 mg/dL MARIANNA Comment:Testing performed by : [address] [address] Blood 10/21/2024 11:1 8 AM SPRING TIER 10/21/2024 7:27 PM SPRING TIER Anival Bañuelos MD LAB BLOOD ORDERABLES Final Result [address] Department [place] [address] * Screening Mammogram Bilateral W Ramirez (04/09/2024 [...] been no suspicious interval change. us Anival Bañuelos MD IMG MAMMO PROCEDURES Final Result from Last 3 Months or Most Recently Relevant to Health Maintenance Insurance [facility] HMO/PPO Address: [facility] [address] [place] [address] Care Teams Sizing Machine And Drier Operator Relationship Specialty Start Date End Date Anival Bañuelos MD [address] [place] [address] PCP - General 01/28/17 Zacarias Garcia MD [address] [place] [address] Referring Physician Orthopedic Surgery 05/28/18 Christian Banegas MD [address] [place] [address] Consulting Physician Endocrinology 05/31/19 Jesusita Montiel MD [address] [place] [address] Quality Reviewer Obstetrics and Gynecology 02/05/21 [place] [address] [facility] [address] [place] [address] Consulting Physician Rheumatology 02/14/22
--- OUTSIDE RECORDS SUMMARY | 2024-12-31 18:44 | XMS_ITS | Encounter Summary ---
Author Organization [facility] Address [address] [place] [address] Phone Care Team Providers Care Toy Maker Name Role Phone Edda, Anival Siddiqui MD Primary Care Provider [phone]- [phone] Jasbir Mac MD Unavailable [phone] Zacarias Garcia MD Unavailable [phone] Christian Banegas MD Unavailable [phone] Jesusita Montiel MD Unavailable [phone] Cata Nicole MD Unavailable Encounter Details Date Type Department Care Team (Late st Contact Info) Description 04/10/2017 Orders Only [facility] [address] [place] [address] Sonam Chapman LPN Social History Tobacco Use Types Packs/Day Years Used Date Smoking Tobacco: Never Alcohol Use Standard Drinks/Week Comments No 0 (1 standard drink = 0.6 oz pur e alcohol) Comments Unknown Sex and Gender Information Value Date Recorded Sex Assigned at Not on file Legal Sex Female 12:21 PM CIVIL ENGINEERING DIRECTOR Gender Identity Not on file Sexual Orientation [...] COVID: Suspected 01/02/2021 01/02/2021 01/02/2021 2:30 PM CIVIL ENGINEERING DIRECTOR COVID: Suspected 01/04/2021 01/04/2021 01/04/2021 2:21 PM CIVIL ENGINEERING DIRECTOR COVID: Suspected 02/08/2022 02/08/2022 02/08/2022 10:56 AM CDT COVID: Suspected 10/29/2023 10/29/2023 10/29/2023 6:54 PM CIVIL ENGINEERING DIRECTOR COVID: Suspected 11/20/2023 11/20/2023 11/20/2023 1:14 PM CIVIL ENGINEERING DIRECTOR COVID: Suspected 03/14/2024 03/14/2024 03/14/2024 12:54 PM CDT COVID: Suspected 11/26/2024 11/26/2024 11/26/2024 7:03 PM CIVIL ENGINEERING DIRECTOR Influenza, adult 11/26/2024 11/26/2024 12/03/2024 3:07 AM CIVIL ENGINEERING DIRECTOR documented as of this encounter Care Teams Toy Maker Relationship Specialty Start Date End Date Anival Bañuelos MD [address] [place] [address] [place] [address] PCP - General 01/28/17 Jasbir Mac MD [address] [address] Referring Physician Obstetrics and Gynecology 05/28/18 02/04/21 Zacarias Garcia MD [address] [address] Referring Physician Orthopedic Surgery 05/28/18 Christian Banegas MD [address] [facility] [address] [place] [address] Consulting Physician Endocrinology 05/31/19 Jesusita Montiel MD 1 [facility] [place] [address] Flame Channeler Obstetrics and Gynecology 02/05/21 [place] [address] [facility] [address] [place] [address] Consulting Physician Rheumatology 02/14/22 documented as of this encounter
--- OUTSIDE RECORDS SUMMARY | 2024-12-31 18:44 | XMS_ITS | Referral Summary ---
Author Organization [facility] [address] Address [address] [place] [address] Phone Care Team Providers Care Public Health Microbiologist Name Role Phone Anival Bañuelos MD Primary Care Provider [phone] Zacarias Garcia MD Unavailable [phone] Christian Banegas MD Unavailable [phone] Jesusita Montiel MD Unavailable [phone] Cata Nicole MD Unavailable Encounters Date Type Department Care Team Description 12/20/2024 2:00 PM OPERATOR ELECTRONIC WARFARE Office Visit [facility] [address] [place] [address] Anival Bañuelos MD Morbid obesity with BMI of 40.0-44.9, adult ([facility]) (Primary Dx); Acute bilateral low back pain without sciatica; PSA (psoriatic arthritis) ([facility]) 12/17/2024 2:50 PM OPERATOR ELECTRONIC WARFARE Lab [facility] [address] [place] [address] Acute bilateral low back pain without sciatica 12/17/2024 2:30 PM OPERATOR ELECTRONIC WARFARE Ancillary Procedure [facility] [address] [place] [address] Constipation, unspecified constipation type 12/17/2024 1:30 PM OPERATOR ELECTRONIC WARFARE [facility] [address] [place] [address] Anival Bañuelos MD Acute bilateral low back pain without sciatica (Primary Dx); Morbid obesity with BMI of 40.0-44.9, adult (HCC); Constipation, unspecified constipation type 12/14/2024 Orders Only [facility] Health Information Management [address] [place] [address] Scanning, Provider 12/14/2024 Telephone [facility] [address] [place] [address] Janel Alexander, ALVINO 11/26/2024 6:45 PM OPERATOR ELECTRONIC WARFARE Office Visit [facility] Care at [address] [phone] Naty Stewart NP Acute cough (Primary Dx) 10/29/2024 Telephone [facility] [address] [place] [address] Anival Bañuelos MD 10/25/2024 Telephone [facility] [address] [place] [address] Janel Alexander, ALVINO 10/22/2024 Telephone [facility] [address] [place] [address] Sonya Wilson, RN 10/21/2024 Telephone [facility] [address] [place] [address] Janel Alexander, RN 10/21/2024 11:20 AM OPERATOR ELECTRONIC WARFARE Lab [facility] [address] [place] [address] Morbid obesity with BMI of 40.0-44.9, adult (HCC); Benign essential HTN 10/21/2024 10:45 AM OPERATOR ELECTRONIC WARFARE Office Visit [facility] [address] [place] [address] Anival Bañuelos MD Morbid obesity with BMI of 40.0-44.9, adult (HCC) (Primary Dx); Benign essential HTN 10/21/2024 Telephone [facility] [address] [place] [address] Anival Bañuelos MD Hypertension 10/06/2024 Telephone [facility] [address] [place] [address] Janel Alexander RN from Last 3 Months Allergies Active Allergy [...] 12/17/2024 Assessment & Plan (12/20/2024 6:05 PM OPERATOR ELECTRONIC WARFARE): SYMTPOMS ARE BETTER OK TO DO CHRIOPRACTIC IF NECESSARY Assessment & Plan (12/17/2024 5:47 PM OPERATOR ELECTRONIC WARFARE): CT OF THE SPINE WAS REVIEWED THERE IS NO SADDLE ANESTHESIA CURRENTLY ON STEROIDS ORALLY KENALOG 40 MG IM TIMES ONE CHIRO IS OK PT IS OK IF SYMTPMS GET WORSE WILL DO AN MRI OF THE L SPINE Morbid obesity with BMI of 40.0-44.9, adult 09/27 Assessment & Plan (12/20/2024 6:05 PM OPERATOR ELECTRONIC WARFARE): CHRONIC AND STABLE Melina albicans infection 09/22/2024 Assessment & Plan (09/22/2024 10:35 AM OPERATOR ELECTRONIC WARFARE): Etiology / pathogenesis was discussed today . [...] 02/28/2024 Assessment & Plan (10/21/2024 11:18 AM OPERATOR ELECTRONIC WARFARE): GOAL BP IS 130/80 OR LESS CONTINUE [...] 10/29/2023 Assessment & Plan (10/29/2023 7:03 PM OPERATOR ELECTRONIC WARFARE): URI symptoms for 2 weeks. Tested negative [...] 01/02/2021 Assessment & Plan (01/02/2021 3:06 PM OPERATOR ELECTRONIC WARFARE): Patient presents with headache, cough, congestion and [...] 11/08/2020 Assessment & Plan (11/08/2020 9:38 AM OPERATOR ELECTRONIC WARFARE): Pt started with tingling and then pain [...] aspiration biopsy demonstrated atypia of undetermined significance, [place] category lll. Patient is exhibiting no local [...] 01/26/2009 Assessment & Plan (12/20/2024 6:05 PM OPERATOR ELECTRONIC WARFARE): SHE HAD USED MTX PLUS FOLIC ACID [...] on file Legal Sex Female 12:21 PM OPERATOR ELECTRONIC WARFARE Gender Identity Not on file Sexual Orientation Straight 05/27/2024 1: 34 PM CDT Occupation Industry Job Start Date Job End Date Not on file Not on file Not on file Not on file Last Filed Vital Signs Vital Sign Reading Time Taken Comments Blood Pressure 130/88 12/20/2024 2:13 PM OPERATOR ELECTRONIC WARFARE Pulse 108 12/20/2024 2:13 PM OPERATOR ELECTRONIC WARFARE Temperature 36.8 C (98.2 F) 12/20/2024 2:13 PM OPERATOR ELECTRONIC WARFARE Respiratory Rate 18 12/20/2024 2:13 PM OPERATOR ELECTRONIC WARFARE Oxygen Saturation 99% 12/20/2024 2:13 PM OPERATOR ELECTRONIC WARFARE Inhaled Oxygen Concentration - - Weight 94.5 kg (208 lb 6.4 oz) 12/20/2024 2:13 P M OPERATOR ELECTRONIC WARFARE Height 152.4 cm (5') 12/20/2024 2:13 PM OPERATOR ELECTRONIC WARFARE Body Mass Index 40.7 12/20/2024 2:13 PM OPERATOR ELECTRONIC WARFARE Plan of Treatment Not on file Procedures Procedure Name Priority Date/Time Associated Diagnosis Comments XR KUB Schedule Routine, Read Routine (OP Routine) 12/17/2024 2:53 PM OPERATOR ELECTRONIC WARFARE Constipation, unspecified constipation type URINALYSIS AND REFLEX TO MICROSCOPIC AND CULTURE Routine 12/17/2024 2:33 PM OPERATOR ELECTRONIC WARFARE Acute bilateral low back pain without sciatica SCAN - RADIOLOGY/IMAGING 12/14/2024 9:29 AM OPERATOR ELECTRONIC WARFARE POC INFLUENZA A/B, COVID-19 ANTIGEN Routine 11/26/2024 7:01 PM OPERATOR ELECTRONIC WARFARE Acute cough IRON PROFILE W/ IBC Routine 11/10/2024 9 :21 AM OPERATOR ELECTRONIC WARFARE Anemia, unspecified type CBC WITH AUTO DIFFERENTIAL Routine 11/10/2024 9:21 AM OPERATOR ELECTRONIC WARFARE Anemia, unspecified type EGFR Routine 10/21/2024 11:18 AM OPERATOR ELECTRONIC WARFARE Morbid obesity with BMI of 40.0-44.9, adult (HCC) Benign essential HTN DIFFERENTIAL AUTO Routine 10/21/2024 11: 18 AM OPERATOR ELECTRONIC WARFARE Morbid obesity with BMI of 40.0-44.9, adult (HCC) Benign essential HTN PRO B-TYPE NATRIURETIC PEPTIDE Routine 10/21/2024 11:18 AM OPERATOR ELECTRONIC WARFARE Morbid obesity with BMI of 40.0-44.9, adult (HCC) Benign essential HTN CBC WITH AUTO DIFFERENTIAL Routine 10/21/2024 11:18 AM OPERATOR ELECTRONIC WARFARE Morbid obesity with BMI of 40.0-44.9, adult (HCC) Benign essential HTN BASIC METABOLIC PANEL Routine 10/21/2024 11:18 AM OPERATOR ELECTRONIC WARFARE Morbid obesity with BMI of 40.0-44.9, adult (HCC) Benign essential HTN SCREENING MAMMOGRAM BILATERAL W RAMIREZ Schedule Routine, Read Routine (OP Routine) 04/09/2024 3:33 PM CDT Screening mammogram for breast cancer from Last 3 Months or Most Recently Relevant to Health Maintenance Results * XR Kub (12/17/2024 2:53 PM OPERATOR ELECTRONIC WARFARE) Anatomical Region Laterality Modality Body, Abdomen N/A Computed Radiogr aphy 12/23/2024 8:41 AM OPERATOR ELECTRONIC WARFARE Narrative 12/23/2024 8:43 AM OPERATOR ELECTRONIC WARFARE EXAM DESCRIPTION: XR KUB REASON FOR STUDY: [...] Jaime Shannon M.D. RB: LOPEZ Report ID: [id number] Reading Location: [id number] Procedure Note Jaime Shannon MD - 12/23/2024 [...] Jaime Shannon M.D. RB: LOPEZ Report ID: [id number] Reading Location: [place] [address] Anival Bañuelos MD IMG XR PROCEDURES Final Re sult * Urinalysis reflex to microscopic and culture Urine, bladder (12/17/2024 2:33 PM OPERATOR ELECTRONIC WARFARE) Color, ur Yellow Yellow Comment:Testing performed by : [address] [address] Clarity, ur Clear Clear CERNER Comment:Testing performed by : [address] [address] Specific gravity, ur 1.009 1.003 - 1.030 CERNER CH Comment:Testing performed by : [address] [address] pH, urine 5.0 CERNER Comment: Interpretive Data U rine pH is affected by diet, medications, systemic acid-base disturbances, and renal tubular function. pH may affect urinary stone formation. For example, urine pH below 6.0 may help reduce the tendency for calcium phosphate stones and pH greater than 6.0 may reduce the tendency for uric acid stone formation. Source: [employer] Current Interpretive Data was last revised on 2017 Testing performed by: [address] [address] Protein, ur ql Negative Negative CERNER CH Comment:Testing performed by : [address] [address] Glucose, ur ql Negative Negative CERNER CH Comment:Testing performed by : [address], [place]., [address] Ketones, ur Negative Negative MARIANNA Comment:Testing performed by : [address] [address] Bilirubin, ur Negative Negative MARIANNA Comment:Testing performed by : [address] [address] Blood, ur Negative Negative MARIANNA Comment:Testing performed by : [address] [address] Urobilinogen, ur <2.0 <2.0 mg/dL MARIANNA Comment:Testing performed by : [address] [address] Nitrite, ur Negative Negative MARIANNA Comment:Testing performed by : [address] [address] Leukocyte esterase, ur Negative Negative MARIANNA Comment:Testing performed by : [address], [address] UA reflex comment Reflex conditions for microscopic UA and culture not met. MARIANNA Comment:Testing performed by : [address], [address] Urine, bladder 12/17/2024 2: 33 PM OPERATOR ELECTRONIC WARFARE 12/17/2024 7:01 PM OPERATOR ELECTRONIC WARFARE Anival Bañuelos MD LAB MICROBIOLOGY - GENERAL ORDERABLES Final Result [address] Department [place] [address] * SCAN - RADIOLOGY/IMAGING (12/14/2024 9:29 AM OPERATOR ELECTRONIC WARFARE) Anatomical Region Laterality Modality Other Provider Scanning Final Result * (ABNORMAL) POC Influenza A/B, COVID-19 antigen (11/26/2024 7:01 PM OPERATOR ELECTRONIC WARFARE) Influenza A Ag, POC Positive(A) Negative [facility] Influenza B Ag, POC Negative Negative [facility] COVID-19 Ag POC Presumptive Negative Presumptive Negative, Invalid [facility] Nasal 11/26/2024 7:01 PM OPERATOR ELECTRONIC WARFARE Naty Stewart FILAMENT CUTTER POINT OF CARE TEST ORDERABLES F inal Result Performing Organization Address City/[facility]/ZIP Co de Phone Number [facility] [address] * Iron profile w/ IBC (11/10/2024 9:21 AM OPERATOR ELECTRONIC WARFARE) Pathologist [facility] Iron 75 40 - 190 mcg/dL [facility] TIBC 303 250 - 450 mcg/dL (calc) [facility] Iron saturation 25 16 - 45 % (calc) [facility] Blood 11/10/2024 9:21 AM OPERATOR ELECTRONIC WARFARE 11/11/2024 6:04 AM OPERATOR ELECTRONIC WARFARE Narrative [facility] - 11/11/2024 8:25 AM OPERATOR ELECTRONIC WARFARE FASTING:YES FASTING: YES Anival Bañuelos MD LAB BLOOD ORDERABLES Final Result Performing Organization Address City/[facility]/ZIP Co de Phone Number [facility] [address] [place] [address] * (ABNORMAL) CBC with auto differential (11/10/2024 9:21 AM OPERATOR ELECTRONIC WARFARE) [facility] WBC 5.4 3.8 - 10.8 Thousand/u L [...] [facility] Blood 11/10/2024 9:21 AM OPERATOR ELECTRONIC WARFARE 11/11/2024 6:04 AM OPERATOR ELECTRONIC WARFARE Narrative [facility] - 11/11/2024 8:25 AM OPERATOR ELECTRONIC WARFARE FASTING:YES FASTING: YES Anival Bañuelos MD LAB BLOOD ORDERABLES Final Result [facility] [address] [place] [address] * eGFR (10/21/2024 11:18 AM OPERATOR ELECTRONIC WARFARE) eGFR >90 >=60 mL/min/1. 73 m2 Comment: [...] was last reviewed 2021. Testing performed by: [facility], [address] [place] [address]., [address] Blood 10/21/2024 11:1 8 AM OPERATOR ELECTRONIC WARFARE 10/21/2024 7:49 PM OPERATOR ELECTRONIC WARFARE us Anival Bañuelos MD LAB BLOOD ORDERABLES Final Result [facility] [place] [address] [address] Department [place] [address] * Differential, auto (10/21/2024 11:18 AM OPERATOR ELECTRONIC WARFARE) Neutrophil abs 3.9 1.5 - 6.5 K/cumm Comment:Testing performed by : [facility], [address] [place] [address]., [address] Imm gran abs 0.0 0.0 - 0.1 K/cumm CERNER Comment:Testing performed by : [address] [address] Lymphocyte abs 1.4 0.8 - 3.3 K/cumm [facility] ELENA Comment:Testing performed by : [address] [address] Monocyte abs 0.4 0.2 - 0.8 K/cumm [facility] ELENA Comment:Testing performed by : [address] [address] Eosinophil abs 0.2 0.0 - 0.5 K/cumm [facility] [place]LENA Comment:Testing performed by : [address] [address] Basophil abs 0.1 0.0 - 0.1 K/cumm CERNER Comment:Testing performed by : [address], [address] Neutrophil pct 65.5 % [facility] [place] Comment: Interpretive Data Percent cell count reference ranges are not reported, since discordance with absolute values may lead to misinterpretation of CBC data. Current Interpretive Data was last revised on 2018. Testing performed by: [facility], [address] [place] [address]., [address] Imm gran pct 0.3 % [facility] Comment: Interpretive Data Percent cell count reference ranges are not reported, since discordance with absolute values may lead to misinterpretation of CBC data. Current Interpretive Data was last revised on 2018. Testing performed by: [address], [address] Lymphocyte pct 23.8 % [facility] Comment: Interpretive Data Percent cell count reference ranges are not reported, since discordance with absolute values may lead to misinterpretation of CBC data. Current Interpretive Data was last revised on 2018. Testing performed by: [address] [address] Monocyte pct 6.1 % [facility] Comment: Interpretive Data Percent cell count reference ranges are not reported, since discordance with absolute values may lead to misinterpretation of CBC data. Current Interpretive Data was last revised on 2018. Testing performed by: [address] [address] Eosinophil pct 3.5 % [facility] Comment: Interpretive Data Percent cell count reference ranges are not reported, since discordance with absolute values may lead to misinterpretation of CBC data. Current Interpretive Data was last revised on 2018. Testing performed by: [address] [address] Basophil pct 0.8 % [facility] Comment: Interpretive Data Percent cell count reference ranges are not reported, since discordance with absolute values may lead to misinterpretation of CBC data. Current Interpretive Data was last revised on 2018. Testing performed by: [address], [address] Blood 10/21/2024 11:1 8 AM OPERATOR ELECTRONIC WARFARE 10/21/2024 7:27 PM OPERATOR ELECTRONIC WARFARE Anival Bañuelos MD LAB BLOOD ORDERABLES Final Result [facility]NA [place] [address] [address] [place] [address] * Pro B-type natriuretic peptide (10/21/2024 11:18 AM OPERATOR ELECTRONIC WARFARE) NT-proBNP 260 <=300 pg/mL Comment: Interpretive Comments: [...] Last Revised Date: 2018. Testing performed by: [facility], [address] [place] [address], [place]., [address] Blood 10/21/2024 11:1 8 AM OPERATOR ELECTRONIC WARFARE 10/21/2024 7:27 PM OPERATOR ELECTRONIC WARFARE us Anival Bañuelos MD LAB BLOOD ORDERABLES Final Result [facility] [place] [address] [address] [place] [address] * (ABNORMAL) CBC with auto differential (10/21/2024 11:18 AM OPERATOR ELECTRONIC WARFARE) [facility] WBC 6.0 3.8 - 9.9 K/cumm Comment:Testing performed by : [address], [address] Hgb 10.8(L) 11.9 - 15.5 g/dL CERNER CH Comment:Testing performed by : [address], [address] Hct 34.6(L) 35.6 - 45.5 % C[facility]ER CH Comment:Testing performed by : [address], [address] Plt 305 150 - 400 K/cumm CERNER CH Comment:Testing performed by : [address], [address] MPV 10.7 9.1 - 12.3 fL CERNER CH Comment:Testing performed by : [address], [address] RBC 3.93 3.90 - 5.20 M/cumm CERNER CH Comment:Testing performed by : [address], [address] MCV 88.0 81.3 - 96.4 fL CERNER CH Comment:Testing performed by : [address], [address] MCH 27.5 27.1 - 33.3 pg CERNER CH Comment:Testing performed by : [address], [address] MCHC 31.2(L) 32.3 - 35.7 g/dL CERNER CH Comment:Testing performed by : [address], [address] RDW CV 13.8 11.1 - 14.9 % [facility] CH Comment:Testing performed by : [address], [address] RDW SD 44.7 35.7 - 48.1 fL CERNER CH Comment:Testing performed by : [address], [address] NRBC abs 0.00 0.00 - 0.01 K/cumm CERNER CH Comment:Testing performed by : [address] [address] Blood 10/21/2024 11:1 8 AM OPERATOR ELECTRONIC WARFARE 10/21/2024 7:27 PM OPERATOR ELECTRONIC WARFARE Anival Bañuelos MD LAB BLOOD ORDERABLES Final Result [address] Department [place] [address] * Basic metabolic panel (10/21/2024 11:18 AM OPERATOR ELECTRONIC WARFARE) Sodium 145 135 - 145 mmol/L Comment:Testing performed by : [address] [address] Potassium, pl 3.9 3.3 - 4.9 mmol/L [facility] Comment:Testing performed by : [address] [address] Chloride 109 97 - 110 mmol/L [facility] Comment:Testing performed by : [address] [address] CO2 24 22 - 32 mmol/L CERNER Comment:Testing performed by : [address] [address] Anion gap 12 2 - 15 mmol/L [facility] Comment:Testing performed by : [address] [address] BUN 19 6 - 25 mg/dL [facility] Comment:Testing performed by : [address] [address] Creatinine 0.74 0.60 - 1.10 mg/dL [facility] Comment:Testing performed by : [address] [address] Glucose 83 70 - 199 mg/dL [facility] Comment: Interpretive Data Fasting glucose [...] last revised 2022. Testing performed by: [facility], [address] [place] [address]., [address] Calcium 8.6 8.5 - 10.3 mg/dL MARIANNA SANCHEZ Comment:Testing performed by : [facility], [address] [place] [address]., [address] Blood 10/21/2024 11:1 8 AM OPERATOR ELECTRONIC WARFARE 10/21/2024 7:27 PM OPERATOR ELECTRONIC WARFARE Anival Bañuelos MD LAB BLOOD ORDERABLES Final Result Performing Organization Address City/State/[facility] Co de Phone Number MARIANNA SANCHEZ [address] [place] [address] Department [place] [address] * Screening Mammogram Bilateral W Ramirez (04/09/2024 [...] Most Recently Relevant to Health Maintenance Insurance [facility] HMO/PPO Address: [facility] [address] [place] [address] Care Teams Public Health Microbiologist Relationship Specialty Start Date End Date Anival Bañuelos MD [address] [place] [address] PCP - General 01/28/17 Zacarias Garcia MD [address] [place] [address] Referring Physician Orthopedic Surgery 05/28/18 Christian Banegas MD [address] [place] [address] Consulting Physician Endocrinology 05/31/19 Jesusita Montiel MD [address] [place] [address] Marketing Analytics Specialist Obstetrics and Gynecology 02/05/21 [place] [id number] [address] Consulting Physician Rheumatology 02/14/22
--- OUTSIDE RECORDS SUMMARY | 2024-12-31 18:44 | XMS_ITS | Encounter Summary ---
Author Organization [facility] Address [address] [place] [address] Phone Care Team Providers Care Algorithm Design Engineer Name Role Phone Edda Anival Siddiqui MD Primary Care Provider [phone]- [phone] Zacarias Garcia MD Unavailable [phone] Christian Banegas MD Unavailable [phone] Jesusita Montiel MD Unavailable Cata Nicole MD Unavailable Encounter Details Date Type Department Care Team (Late st Contact Info) Description 11/06/2022 Orders Only [facility] [address] [place] [address] Scanning, Provider Social History Tobacco [...] on file Legal Sex Female 12:21 PM MOTOR TRANSPORT INSPECTOR Gender Identity Not on file Sexual Orientation [...] COVID: Suspected 10/29/2023 10/29/2023 10/29/2023 6:54 PM MOTOR TRANSPORT INSPECTOR COVID: Suspected 11/20/2023 11/20/2023 11/20/2023 1:14 PM MOTOR TRANSPORT INSPECTOR COVID: Suspected 03/14/2024 03/14/2024 03/14/2024 12:54 PM CDT COVID: Suspected 11/26/2024 11/26/2024 11/26/2024 7:03 PM MOTOR TRANSPORT INSPECTOR Influenza, adult 11/26/2024 11/26/2024 12/03/2024 3:07 AM MOTOR TRANSPORT INSPECTOR documented as of this encounter Care Teams Algorithm Design Engineer Relationship Specialty Start Date End Date Anival Bañuelos MD [address] [place] [address] PCP - General 01/28/17 Zacarias Garcia MD [address] [place] [address] Referring Physician Orthopedic Surgery 05/28/18 Christian Banegas MD [address] [facility] [address] [place] [address] Consulting Physician Endocrinology 05/31/19 Jesusita Montiel MD [address] [place] [address] Armoured Corps Officer Obstetrics and Gynecology 02/05/21 [place] [address] [facility] 70 [place] [address] Consulting Physician Rheumatology 02/14/22 documented as of this encounter
--- OUTSIDE RECORDS SUMMARY | 2024-12-31 18:44 | XMS_ITS | Encounter Summary ---
Author Organization [facility] Healthcare Address [address] [place] [address] Care Team Providers Care Sole Layer Name Role Phone Edda, Anival Siddiqui MD Primary Care Provider +- [phone] Zacarias Garcia MD Unavailable [phone] Christian Banegas MD Unavailable [phone] Jesusita Montiel MD Unavailable Cata Nicole MD Unavailable Encounter Details Date Type Department Care Team (Late st Contact Info) Description 07/16/2024 Orders Only [facility] [address] [place] [id number] Scanning, Provider Social History Tobacco Use Types [...] on file Legal Sex Female 12:21 PM TERMINAL WORKER Gender Identity Not on file Sexual Orientation [...] COVID: Suspected 11/26/2024 11/26/2024 11/26/2024 7:03 PM TERMINAL WORKER Influenza, adult 11/26/2024 11/26/2024 12/03/2024 3:07 AM TERMINAL WORKER documented as of this encounter Care Teams Sole Layer Relationship Specialty Start Date End Date Anival Bañuelos MD [address] [place] [address] PCP - General 01/28/17 Zacarias Garcia MD [address] [place] [address] Referring Physician Orthopedic Surgery 05/28/18 Christian Banegas MD [address] [facility] [address] [place] [address] Consulting Physician Endocrinology 05/31/19 Jesusita Montiel MD [address] [place] [address] Test Worker Obstetrics and Gynecology 02/05/21 [place] [address] [facility] [address] [place] [address] Consulting Physician Rheumatology 02/14/22 documented as of this encounter
--- OUTSIDE RECORDS SUMMARY | 2024-12-31 18:44 | XMS_ITS | Encounter Summary ---
Author Organization [facility] Address [address] [place] [address] Phone Care Team Providers Care Histologist Name Role Phone Edda Anival Siddiqui MD Primary Care Provider +- [phone] Jasbir Mac MD Unavailable [phone] Zacarias Garcia MD Unavailable [phone] Christian Banegas MD Unavailable [phone] Jesusita Montiel MD Unavailable Cata Nicole MD Unavailable Encounter Details Date Type Department Care Team (Late st Contact Info) Description 08/15/2020 Orders Only [facility] [address] [place] [address] Scanning, Provider Social History Tobacco Use Types Packs/Day Years Used Date Smoking Tobacco: Never Smokeless Tobacco: Never Alcohol Use Standard Drinks/Week Comments No 0 (1 standard drink = 0.6 oz pur e alcohol) Comments No Sex and Gender Information Value Date Recorded Sex Assigned at Not on file Legal Sex Female 12:21 PM MANAGER FILE Gender Identity Not on file Sexual Orientation [...] COVID: Suspected 01/02/2021 01/02/2021 01/02/2021 2:30 PM MANAGER FILE COVID: Suspected 01/04/2021 01/04/2021 01/04/2021 2:21 PM MANAGER FILE COVID: Suspected 02/08/2022 02/08/2022 02/08/2022 10:56 AM CDT COVID: Suspected 10/29/2023 10/29/2023 10/29/2023 6:54 PM MANAGER FILE COVID: Suspected 11/20/2023 11/20/2023 11/20/2023 1:14 PM MANAGER FILE COVID: Suspected 03/14/2024 03/14/2024 03/14/2024 12:54 PM CDT COVID: Suspected 11/26/2024 11/26/2024 11/26/2024 7:03 PM MANAGER FILE Influenza, adult 11/26/2024 11/26/2024 12/03/2024 3:07 AM MANAGER FILE documented as of this encounter Care Teams Histologist Relationship Specialty Start Date End Date Anival Bañuelos MD [address] [place] [address] PCP - General 01/28/17 Jasbir Mac MD [address] [place] [address] Referring Physician Obstetrics and Gynecology 05/28/18 02/04/21 Zacarias Garcia MD [address] [address] Referring Physician Orthopedic Surgery 05/28/18 Christian Banegas MD [address] [place] [address] [place] [address] Consulting Physician Endocrinology 05/31/19 Jesusita Montiel MD [address] [place] [address] Strapper Obstetrics and Gynecology 02/05/21 [place] [address] [facility] [address] [place] [address] Consulting Physician Rheumatology 02/14/22 documented as of this encounter
--- OUTSIDE RECORDS SUMMARY | 2024-12-31 18:44 | XMS_ITS | Encounter Summary ---
Author Organization [facility] Address [address] [place] [address] Phone Care Team Providers Care Peanut Picker Name Role Phone Edda Anival Siddiqui MD Primary Care Provider [phone]- [phone] Zacarias Garcia MD Unavailable [phone] Christian Banegas MD Unavailable [phone] Jesusita Montiel MD Unavailable Cata Nicole MD Unavailable Encounter Details Date Type Department Care Team (Late st Contact Info) Description 01/09/2023 Orders Only [facility] [address] [place] [address] Scanning, Provider Social History Tobacco [...] on file 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 Gender Identity Not on file Sexual Orientation [...] COVID: Suspected 10/29/2023 10/29/2023 10/29/2023 6:54 PM BRICK CLEANER COVID: Suspected 11/20/2023 11/20/2023 11/20/2023 1:14 PM BRICK CLEANER COVID: Suspected 03/14/2024 03/14/2024 03/14/2024 12:54 PM CDT COVID: Suspected 11/26/2024 11/26/2024 11/26/2024 7:03 PM BRICK CLEANER Influenza, adult 11/26/2024 11/26/2024 12/03/2024 3:07 AM BRICK CLEANER documented as of this encounter Care Teams Peanut Picker Relationship Specialty Start Date End Date Anival Bañuelos MD [address] [place] [address] PCP - General 01/28/17 Zacarias Garcia MD [address] [place] [address] Referring Physician Orthopedic Surgery 05/28/18 Christian Banegas MD [address] [facility] [address] [place] [address] Consulting Physician Endocrinology 05/31/19 Jesusita Montiel MD [address] [place] [address] Assistant Construction Superintendent Obstetrics and Gynecology 02/05/21 [place] [address] [facility] 70 [place] [address] Consulting Physician Rheumatology 02/14/22 documented as of this encounter
--- OUTSIDE RECORDS SUMMARY | 2024-12-31 18:44 | XMS_ITS | Encounter Summary ---
Author Organization [facility] Address [address] [place] [address] Phone Care Team Providers Care Logging Tractor Operator Name Role Phone Edda Anival Siddiqui MD Primary Care Provider [phone]- [phone] Zacarias Garcia MD Unavailable [phone] Christian Banegas MD Unavailable [phone] Jesusita Montiel MD Unavailable Cata Nicole MD Unavailable Encounter Details Date Type Department Care Team (Late st Contact Info) Description 12/11/2022 Orders Only [facility] [address] [place] [address] Scanning, Provider Social History Tobacco [...] on file 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 Gender Identity Not on file Sexual Orientation [...] COVID: Suspected 10/29/2023 10/29/2023 10/29/2023 6:54 PM HAND CLOTH FOLDER COVID: Suspected 11/20/2023 11/20/2023 11/20/2023 1:14 PM HAND CLOTH FOLDER COVID: Suspected 03/14/2024 03/14/2024 03/14/2024 12:54 PM CDT COVID: Suspected 11/26/2024 11/26/2024 11/26/2024 7:03 PM HAND CLOTH FOLDER Influenza, adult 11/26/2024 11/26/2024 12/03/2024 3:07 AM HAND CLOTH FOLDER documented as of this encounter Care Teams Logging Tractor Operator Relationship Specialty Start Date End Date Anival Bañuelos MD [address] [place] [address] PCP - General 01/28/17 Zacarias Garcia MD [address] [place] [address] Referring Physician Orthopedic Surgery 05/28/18 Christian Banegas MD [address] [facility] [address] [place] [address] Consulting Physician Endocrinology 05/31/19 Jesusita Montiel MD [address] [place] [address] Senior Interactive Developer Obstetrics and Gynecology 02/05/21 [place] [address] [facility] 70 [place] [address] Consulting Physician Rheumatology 02/14/22 documented as of this encounter
--- NOTE | 2024-12-31 18:55 | PC.NURSE ---
ASSUMED CARE. REPORT RECEIVED FROM MELODY DE OLIVEIRA
--- NOTE | 2024-12-31 19:05 | ED.ANXIETY ---
HPI - Anxiety General Chief Complaint: Anxiety Stated Complaint: high blood pressure Time Seen by Provider: 12/31/24 19:04 Source: patient and family Mode of arrival: ambulatory Limitations: no limitations History of Present Illness HPI narrative: 49 years old white female got up from sitting position, subsequently felt severe pain at the medial side of the middle of the right thigh radiating posteriorly lasted for few minutes then resolved subsequently patient started feeling dizzy, lightheadedness, hyperventilating, poor concentration, jittery feeling inside, shaking outside, crying, blood pressure was elevated, came to the emergency room panicky and anxious. Currently patient have no pain. Related Data Home Medications ?Medication ?Instructions ?Recorded ?Confirmed ?Last Taken ?Type fluoxetine 20 mg capsule (Prozac) 20 mg PO HS 08/15/22 07/16/24 01/07/23 History methotrexate See Rx Instructions .Route .COMPLEX 12/11/22 07/16/24 01/04/23 History albuterol sulfate 90 mcg/actuation 2 puff inhalation Q4-6H PRN 12/12/24 Unknown History aerosol inhaler shortness of breath or wheezing levothyroxine 100 mcg tablet 100 mcg PO DAILY 12/12/24 Unknown History lisinopril 5 mg tablet 5 mg PO DAILY 12/12/24 Unknown History Allergies Allergy/AdvReac Type Severity Reaction Status Date / Time No Known Allergies Allergy Unknown Verified 12/31/24 18:48 Review of Systems Review of Systems: All systems reviewed & are unremarkable except as noted in HPI and below PMFSH Past Medical History Medical History Hypothyroidism John's disease Psoriatic arthritis History of rotator cuff tear History of migraine headaches Patient denies medical problems Surgical History Surgical History History of rotator cuff surgery History of knee surgery 2 right knee surgeries History of tubal ligation History of cholecystectomy History of left knee surgery X 2 Family History Family History Grandparent Family history of arthritis Leukemia Lymphoma Malignant neoplasm of prostate Grandparent Diabetes mellitus Mother Hypertension Father Hyperlipidemia Other Family history of malignant neoplasm Social History Social History Smoking status: Never smoker Second hand tobacco smoke exposure: No Alcohol intake: never Substance use: never Substance use type: does not use Lack of Transportation: No Lack of Food: Never True Current Housing: I Have Housing Concerned About Future Housing: No Difficulty Paying Gas/Electric Bills: No Difficulty Paying for Meds: No Currently Unemployed: No Education: Associate Degree Difficulty w/ Childcare or Family Care: No Living arrangements: with family Additional living arrangements comments: LIVES WITH SPOUSE & CHILDREN Gender identity (if verbalized by the patient): Female Spiritual care concerns: No Exam Narrative: General appearance: Well-developed, well-nourished, anxious Skin: Normal color Head: Normocephalic, nontraumatic Eyes: Clear conjunctiva ENT: Oropharynx normal, ears normal, nose normal Neck: Supple, nontender Chest and respiratory: Airway patent, no respiratory distress, no accessory muscle use Heart: Regular rate/rhythm Abdomen: Soft, nontender, no organomegaly, quiet bowel sounds Vascular: Normal peripheral pulses, normal capillary refill. Musculoskeletal: Right lower extremity exam showed no significant abnormality, right knee exam showed surgical scar anteriorly, good range of motion, no swelling, no rash, no bruises no localized tenderness Neurologic: Alert and oriented ?3, CHIEF ENGINEER DRILLING AND RECOVERY is normal as tested, no gross motor deficit Course Vital Signs Vital signs: Vital Signs Temperature 36.8 C 12/31/24 18:41 Pulse Rate 94 12/31/24 18:41 Respiratory Rate 16 12/31/24 18:41 Blood Pressure 149/93 H 12/31/24 18:41 Pulse Oximetry 100 12/31/24 18:41 Oxygen Delivery Room Air 12/31/24 18:41 Temperature 36.8 C 12/31/24 18:41 Pulse Rate 94 12/31/24 18:41 Respiratory Rate 16 12/31/24 18:41 Blood Pressure 149/93 H 12/31/24 18:41 Pulse Oximetry 100 12/31/24 18:41 Oxygen Delivery Room Air 12/31/24 18:41 MDM - Anxiety MDM Narrative Medical decision making narrative: panic attack status post sudden onset of spasm a of right thigh muscles is my concern. On arrival to the ED patient had no pain but still and panic mood. Received 1 mg of Ativan p.o. with remarkable improvement. Differential Diagnosis Differential diagnosis: Likely other ( Muscular strain/sprain, anxiety) Critical Care Time Critical Care Time Critical Care Time: No Discharge Plan Discharge Clinical Impression: Muscle strain, Panic attack Patient Disposition: Home, Self-Care Condition: Improved Instructions: Muscle Strain (DC), Panic Disorder (ED) Additional Instructions: Return if symptoms are worsening , call your family physician for appointment, take Tylenol as as needed for aches and pain, continue home medications. Patient Language: Arabic Prescriptions: No Action levothyroxine 100 mcg tablet 100 mcg PO DAILY lisinopril 5 mg tablet 5 mg PO DAILY albuterol sulfate 90 mcg/actuation HFA aerosol inhaler 2 puff INHALATION Q4-6H PRN (Reason: shortness of breath or wheezing) cyclobenzaprine 5 mg tablet 5 mg PO TID PRN (Reason: muscle spasm) Qty: 14 0RF ibuprofen 400 mg tablet 400 mg PO TID PRN (Reason: pain) Qty: 30 0RF fluoxetine [Prozac] 20 mg capsule 20 mg PO HS methotrexate See Rx Instructions .ROUTE .COMPLEX Rx Instructions: 2.5MG TABLET, 6 TABLETS WEEKLY - PT TAKES ON SATURDAYS Follow-up/Referrals: Edda,MD Anival [Primary Care Provider] -
--- OUTSIDE RECORDS SUMMARY | 2024-12-31 19:11 | XMS_ITS | Encounter Summary ---
Author Organization [facility] Healthcare Address [address] [place] [address] Care Team Providers Care Loom Fixer Supervisor Name Role Phone Edda, Anival Siddiqui MD Primary Care Provider +- [phone] Zacarias Garcia MD Unavailable [phone] Christian Banegas MD Unavailable [phone] Jesusita Montiel MD Unavailable Cata Nicole MD Unavailable Encounter Details Date Type Department Care Team (Late st Contact Info) Description 07/16/2024 Orders Only [facility] Medical [facility] [address] [place] [id number] Scanning, Provider Social History Tobacco Use Types [...] on file Legal Sex Female 12:21 PM ENTRY CLERK Gender Identity Not on file Sexual Orientation [...] COVID: Suspected 11/26/2024 11/26/2024 11/26/2024 7:03 PM ENTRY CLERK Influenza, adult 11/26/2024 11/26/2024 12/03/2024 3:07 AM ENTRY CLERK documented as of this encounter Care Teams Loom Fixer Supervisor Relationship Specialty Start Date End Date Anival Bañuelos MD [address] [place] [address] PCP - General 01/28/17 Zacarias Garcia MD [address] [place] [address] Referring Physician Orthopedic Surgery 05/28/18 Christian Banegas MD [address] [facility] [address] [place] [address] Consulting Physician Endocrinology 05/31/19 Jesusita Montiel MD [address] [place] [address] Continuous Conveyor Screen Drier Obstetrics and Gynecology 02/05/21 [place] [address] [facility] [address] [place] [address] Consulting Physician Rheumatology 02/14/22 documented as of this encounter
--- OUTSIDE RECORDS SUMMARY | 2024-12-31 19:11 | XMS_ITS | Encounter Summary ---
Author Organization [facility] Address [address] [place] [address] Phone Care Team Providers Care Habilitation Assistant Name Role Phone Edad Anival Siddiqui MD Primary Care Provider [phone]- [phone] Zacarias Garcia MD Unavailable [phone] Christian Banegas MD Unavailable [phone] Jesusita Montiel MD Unavailable Cata Nicole MD Unavailable Encounter Details Date Type Department Care Team (Late st Contact Info) Description 12/11/2022 Orders Only [facility] [address] [place] [address] Scanning, Provider Social History Tobacco [...] on file Legal Sex Female 12:21 PM 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 Gender Identity Not on file Sexual Orientation [...] COVID: Suspected 10/29/2023 10/29/2023 10/29/2023 6:54 PM 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 COVID: Suspected 11/20/2023 11/20/2023 11/20/2023 1:14 PM 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 COVID: Suspected 03/14/2024 03/14/2024 03/14/2024 12:54 PM CDT COVID: Suspected 11/26/2024 11/26/2024 11/26/2024 7:03 PM 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 Influenza, adult 11/26/2024 11/26/2024 12/03/2024 3:07 AM 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 documented as of this encounter Care Teams Habilitation Assistant Relationship Specialty Start Date End Date Anival Bañuelos MD [address] [place] [address] PCP - General 01/28/17 Zacarias Garcia MD [address] [place] [address] Referring Physician Orthopedic Surgery 05/28/18 Christian Banegas MD [address] [facility] [address] [place] [address] Consulting Physician Endocrinology 05/31/19 Jesusita Montiel MD [address] [place] [address] Distiller Obstetrics and Gynecology 02/05/21 [place] [address] [facility] [address] [place] [address] Consulting Physician Rheumatology 02/14/22 documented as of this encounter
--- OUTSIDE RECORDS SUMMARY | 2024-12-31 19:11 | XMS_ITS | Clinical Summary ---
Author Organization [facility] [address] Address [address] [place] [address] Phone Care Team Providers Care Enterprise Systems Engineer Name Role Phone Edda Anival Siddiqui MD Primary Care Provider [phone] Zacarias Garcia MD Unavailable [phone] Christian Banegas MD Unavailable [phone] Jesusita Montiel MD Unavailable Cata Nicole [...] 12/17/2024 Assessment & Plan (12/20/2024 6:05 PM POOL TECHNICIAN): SYMTPOMS ARE BETTER OK TO DO CHRIOPRACTIC IF NECESSARY Assessment & Plan (12/17/2024 5:47 PM POOL TECHNICIAN): CT OF THE SPINE WAS REVIEWED THERE IS NO SADDLE ANESTHESIA CURRENTLY ON STEROIDS ORALLY KENALOG 40 MG IM TIMES ONE CHIRO IS OK PT IS OK IF SYMTPMS GET WORSE WILL DO AN MRI OF THE L SPINE Morbid obesity with BMI of 40.0-44.9, adult 09/27 03/2024 Assessment & Plan (12/20/2024 6:05 PM POOL TECHNICIAN): CHRONIC AND STABLE Melina albicans infection 09/22/2024 Assessment & Plan (09/22/2024 10:35 AM POOL TECHNICIAN): Etiology / pathogenesis was discussed today . [...] 02/28/2024 Assessment & Plan (10/21/2024 11:18 AM POOL TECHNICIAN): GOAL BP IS 130/80 OR LESS CONTINUE [...] 10/29/2023 Assessment & Plan (10/29/2023 7:03 PM POOL TECHNICIAN): URI symptoms for 2 weeks. Tested negative [...] 01/02/2021 Assessment & Plan (01/02/2021 3:06 PM POOL TECHNICIAN): Patient presents with headache, cough, congestion and [...] 11/08/2020 Assessment & Plan (11/08/2020 9:38 AM POOL TECHNICIAN): Pt started with tingling and then pain [...] aspiration biopsy demonstrated atypia of undetermined significance, Silva category lll. Patient is exhibiting no local [...] 01/26/2009 Assessment & Plan (12/20/2024 6:05 PM POOL TECHNICIAN): SHE HAD USED MTX PLUS FOLIC ACID [...] Department Care Team Description 12/20/2024 2:00 PM POOL TECHNICIAN Office Visit [facility] [address] [place] [address] Anival Bañuelos MD Morbid obesity with BMI of 40.0-44.9, adult (HCC) (Primary Dx); Acute bilateral low back pain without sciatica; PSA (psoriatic arthritis) (HCC) 12/17/2024 2:50 PM POOL TECHNICIAN Lab [facility] [address] [place] [address] Acute bilateral low back pain without sciatica 12/17/2024 2:30 PM POOL TECHNICIAN Ancillary Procedure [facility] [address] [place] [address] Constipation, unspecified constipation type 12/17/2024 1:30 PM POOL TECHNICIAN Office Visit [facility] [address] [place] [address] Anival Bañuelos MD Acute bilateral low back pain without sciatica (Primary Dx); Morbid obesity with BMI of 40.0-44.9, adult (HCC); Constipation, unspecified constipation type 12/14/2024 Orders Only [facility] Health Information Management [address] [place] [address] Scanning, Provider 12/14/2024 Telephone [facility] [address] [place] [address] Janel Alexander, ALVINO 11/26/2024 6:45 PM POOL TECHNICIAN Office Visit [facility] Care at [address] [phone] Naty Stewart NP Acute cough (Primary Dx) 10/29/2024 Telephone [facility] [address] [place] [address] Anival Bañuelos MD 10/25/2024 Telephone [facility] [address] [place] [address] Janel Alexander, ALVINO 10/22/2024 Telephone [facility] [address] [place] [address] Sonya Wilson, ALVINO 10/21/2024 11:20 AM POOL TECHNICIAN Lab [facility] [address] [place] [address] Morbid obesity with BMI of 40.0-44.9, adult (HCC); Benign essential HTN 10/21/2024 10:45 AM POOL TECHNICIAN [facility] [address] [place] [phone] Anival Bañuelos MD Morbid obesity with BMI of 40.0-44.9, adult (HCC) (Primary Dx); Benign essential HTN 10/21/2024 Telephone [facility] [address] [place] [phone] Janel Alxeander RN 10/21/2024 Telephone [facility] [address] [place] [phone] Anival Bañuelos MD Hypertension 10/06/2024 Telephone [facility] [address] [place] [phone] Janel Alexander, ALVINO from Last 3 Months [...] on file Legal Sex Female 12:21 PM POOL TECHNICIAN Gender Identity Not on file Sexual [...] Comments Blood Pressure 130/88 12/20/2024 2:13 PM POOL TECHNICIAN Pulse 108 12/20/2024 2:13 PM POOL TECHNICIAN Temperature 36.8 C (98.2 F) 12/20/2024 2:13 PM POOL TECHNICIAN Respiratory Rate 18 12/20/2024 2:13 PM POOL TECHNICIAN Oxygen Saturation 99% 12/20/2024 2:13 PM POOL TECHNICIAN Inhaled Oxygen Concentration - - Weight 94.5 kg (208 lb 6.4 oz) 12/20/2024 2:13 P M POOL TECHNICIAN Height 152.4 cm (5') 12/20/2024 2:13 PM POOL TECHNICIAN Body Mass Index 40.7 12/20/2024 2:13 PM POOL TECHNICIAN Plan of Treatment Health Maintenance Due Date [...] Read Routine (OP Routine) 12/17/2024 2:53 PM POOL TECHNICIAN Constipation, unspecified constipation type URINALYSIS AND REFLEX TO MICROSCOPIC AND CULTURE Routine 12/17/2024 2:33 PM POOL TECHNICIAN Acute bilateral low back pain without sciatica SCAN - RADIOLOGY/IMAGING 12/14/2024 9:29 AM POOL TECHNICIAN POC INFLUENZA A/B, COVID-19 ANTIGEN Routine 11/26/2024 7:01 PM POOL TECHNICIAN Acute cough IRON PROFILE W/ IBC Routine 11/10/2024 9 :21 AM POOL TECHNICIAN Anemia, unspecified type CBC WITH AUTO DIFFERENTIAL Routine 11/10/2024 9:21 AM POOL TECHNICIAN Anemia, unspecified type EGFR Routine 10/21/2024 11:18 AM POOL TECHNICIAN Morbid obesity with BMI of 40.0-44.9, adult (HCC) Benign essential HTN DIFFERENTIAL AUTO Routine 10/21/2024 11: 18 AM POOL TECHNICIAN Morbid obesity with BMI of 40.0-44.9, adult (HCC) Benign essential HTN PRO B-TYPE NATRIURETIC PEPTIDE Routine 10/21/2024 11:18 AM POOL TECHNICIAN Morbid obesity with BMI of 40.0-44.9, adult (HCC) Benign essential HTN CBC WITH AUTO DIFFERENTIAL Routine 10/21/2024 11:18 AM POOL TECHNICIAN Morbid obesity with BMI of 40.0-44.9, adult (HCC) Benign essential HTN BASIC METABOLIC PANEL Routine 10/21/2024 11:18 AM POOL TECHNICIAN Morbid obesity with BMI of 40.0-44.9, adult (HCC) Benign essential HTN SCREENING MAMMOGRAM BILATERAL W RAMIREZ Schedule Routine, Read Routine (OP Routine) 04/09/2024 3:33 PM CDT Screening mammogram for breast cancer from Last 3 Months or Most Recently Relevant to Health Maintenance Results * XR Kub (12/17/2024 2:53 PM POOL TECHNICIAN) Anatomical Region Laterality Modality Body, Abdomen N/A Computed Radiogr aphy 12/23/2024 8:41 AM POOL TECHNICIAN Narrative 12/23/2024 8:43 AM POOL TECHNICIAN EXAM DESCRIPTION: XR KUB REASON FOR STUDY: [...] Jaime Shannon M.D. RB: RB Report ID: [id number] Reading Location: [id number] Procedure Note Jaime Shannon MD - 12/23/2024 [...] Jaime Shannon M.D. RB: LOPEZ Report ID: [id number] Reading Location: [place] [address] Anival Bañuelos MD IMG XR PROCEDURES Final Re sult * Urinalysis reflex to microscopic and culture Urine, bladder (12/17/2024 2:33 PM POOL TECHNICIAN) Color, ur Yellow Yellow Comment:Testing performed by : [facility], [address] [place] [address]., [address] Clarity, ur Clear Clear [facility] Comment:Testing performed by : [facility], [address] [place] [address]., [address] Specific gravity, ur 1.009 1.003 - 1.030 [facility] Comment:Testing performed by : [address] [address] pH, urine 5.0 [facility] Comment: Interpretive Data U rine pH is affected by diet, medications, systemic acid-base disturbances, and renal tubular function. pH may affect urinary stone formation. For example, urine pH below 6.0 may help reduce the tendency for calcium phosphate stones and pH greater than 6.0 may reduce the tendency for uric acid stone formation. Source: [facility] Current Interpretive Data was last revised on 2017 Testing performed by: [address] [address] Protein, ur ql Negative Negative [facility] Comment:Testing performed by : [address], [address] Glucose, ur ql Negative Negative [facility] Comment:Testing performed by : [address], [address] Ketones, ur Negative Negative [facility] Comment:Testing performed by : [address], [address] Bilirubin, ur Negative Negative [facility] Comment:Testing performed by : [address], [address] Blood, ur Negative Negative [facility] Comment:Testing performed by : [address] [address] Urobilinogen, ur <2.0 <2.0 mg/dL [facility] Comment:Testing performed by : [address], [address] Nitrite, ur Negative Negative [facility] Comment:Testing performed by : [address], [address] Leukocyte esterase, ur Negative Negative [facility] Comment:Testing performed by : [address], [address] UA reflex comment Reflex conditions for microscopic UA and culture not met. [facility] Comment:Testing performed by : [address], [address] Urine, bladder 12/17/2024 2: 33 PM POOL TECHNICIAN 12/17/2024 7:01 PM POOL TECHNICIAN Anival Bañuelos MD LAB MICROBIOLOGY - GENERAL ORDERABLES Final Result [facility] SANCHEZ [address] Department [place] [address] * SCAN - RADIOLOGY/IMAGING (12/14/2024 9:29 AM POOL TECHNICIAN) Anatomical Region Laterality Modality Other Provider Scanning Final Result * (ABNORMAL) POC Influenza A/B, COVID-19 antigen (11/26/2024 7:01 PM POOL TECHNICIAN) [facility] Influenza A Ag, POC Positive(A) Negative [facility] Influenza B Ag, POC Negative Negative [facility] COVID-19 Ag POC Presumptive Negative Presumptive Negative, Invalid [facility] Nasal 11/26/2024 7:01 PM POOL TECHNICIAN Naty Stewart NP POINT OF CARE TEST ORDERABLES F inal Result Performing Organization Address [facility]/ZIP Co de Phone Number [facility] [address] [place] [address] * Iron profile w/ IBC (11/10/2024 9:21 AM POOL TECHNICIAN) [facility] Iron 75 40 - 190 mcg/dL [facility] TIBC 303 250 - 450 mcg/dL (calc) [facility] Iron saturation 25 16 - 45 % (calc) [facility] Blood 11/10/2024 9:21 AM POOL TECHNICIAN 11/11/2024 6:04 AM POOL TECHNICIAN Narrative [facility] - 11/11/2024 8:25 AM POOL TECHNICIAN FASTING:YES FASTING: YES Anival Bañuelos MD LAB BLOOD ORDERABLES Final Result [facility] [address] [place] [address] * (ABNORMAL) CBC with auto differential (11/10/2024 9:21 AM POOL TECHNICIAN) [facility] WBC 5.4 3.8 - 10.8 Thousand/u L [...] [facility] Blood 11/10/2024 9:21 AM POOL TECHNICIAN 11/11/2024 6:04 AM POOL TECHNICIAN Narrative [facility] - 11/11/2024 8:25 AM POOL TECHNICIAN FASTING:YES FASTING: YES Anival Bañuelos MD LAB BLOOD ORDERABLES Final Result Performing Organization Address City/[facility] Co de Phone Number [facility] [address] [address] * eGFR (10/21/2024 11:18 AM POOL TECHNICIAN) eGFR >90 >=60 mL/min/1. 73 m2 Comment: [...] was last reviewed 2021. Testing performed by: [address] [address] Blood 10/21/2024 11:1 8 AM POOL TECHNICIAN 10/21/2024 7:49 PM POOL TECHNICIAN Anival Bañuelos MD LAB BLOOD ORDERABLES Final Result Performing Organization Address [facility] Co de Phone Number MARIANNA [address] [facility] Department [place] [address] * Differential, auto (10/21/2024 11:18 AM POOL TECHNICIAN) [facility] Neutrophil abs 3.9 1.5 - 6.5 K/cumm Comment:Testing performed by : [address] [address] Imm gran abs 0.0 0.0 - 0.1 K/cumm [facility] Comment:Testing performed by : [address] [address] Lymphocyte abs 1.4 0.8 - 3.3 K/cumm [facility] Comment:Testing performed by : [facility], [address] [place] [address]., [address] Monocyte abs 0.4 0.2 - 0.8 K/cumm [facility] Comment:Testing performed by : [facility], [address] [place] [address]., [address] Eosinophil abs 0.2 0.0 - 0.5 K/cumm [facility] Comment:Testing performed by : [facility], [address] [place] [address]., [address] Basophil abs 0.1 0.0 - 0.1 K/cumm [facility] Comment:Testing performed by : [address] [address] Neutrophil pct 65.5 % [facility] Comment: Interpretive Data Percent cell count reference ranges are not reported, since discordance with absolute values may lead to misinterpretation of CBC data. Current Interpretive Data was last revised on 2018. Testing performed by: [facility], [address] [place] [address]., [address] Imm gran pct 0.3 % [facility] Comment: Interpretive Data Percent cell count reference ranges are not reported, since discordance with absolute values may lead to misinterpretation of CBC data. Current Interpretive Data was last revised on 2018. Testing performed by: [address] [address] Lymphocyte pct 23.8 % [facility] Comment: Interpretive Data Percent cell count reference ranges are not reported, since discordance with absolute values may lead to misinterpretation of CBC data. Current Interpretive Data was last revised on 2018. Testing performed by: [address] [address] Monocyte pct 6.1 % [facility] Comment: Interpretive Data Percent cell count reference ranges are not reported, since discordance with absolute values may lead to misinterpretation of CBC data. Current Interpretive Data was last revised on 2018. Testing performed by: [address] [address] Eosinophil pct 3.5 % [facility] Comment: Interpretive Data Percent cell count reference ranges are not reported, since discordance with absolute values may lead to misinterpretation of CBC data. Current Interpretive Data was last revised on 2018. Testing performed by: [facility], [address] [place] [address]., [address] Basophil pct 0.8 % [facility] Comment: Interpretive Data Percent cell count reference ranges are not reported, since discordance with absolute values may lead to misinterpretation of CBC data. Current Interpretive Data was last revised on 2018. Testing performed by: [facility], [address] [place] [address]., [address] Blood 10/21/2024 11:1 8 AM POOL TECHNICIAN 10/21/2024 7:27 PM POOL TECHNICIAN us Anival Bañuelos MD LAB BLOOD ORDERABLES Final Result MAR[facility]NA SANCHEZ [address] [facility] Department [place] [address] * Pro B-type natriuretic peptide (10/21/2024 11:18 AM POOL TECHNICIAN) NT-proBNP 260 <=300 pg/mL Comment: Interpretive Comments: [...] Last Revised Date: 2018. Testing performed by: [address] [address] Blood 10/21/2024 11:1 8 AM POOL TECHNICIAN 10/21/2024 7:27 PM POOL TECHNICIAN us Anival Bañuelos MD LAB BLOOD ORDERABLES Final Result [facility] [address] Department [place] [address] * (ABNORMAL) CBC with auto differential (10/21/2024 11:18 AM POOL TECHNICIAN) WBC 6.0 3.8 - 9.9 K/cumm Comment:Testing performed by : [address], [address] Hgb 10.8(L) 11.9 - 15.5 g/dL [facility] Comment:Testing performed by : [address], [address] Hct 34.6(L) 35.6 - 45.5 % MARIANNA Comment:Testing performed by : [address], [address] Plt 305 150 - 400 K/cumm MARIANNA Comment:Testing performed by : [address], [address] MPV 10.7 9.1 - 12.3 fL [facility] Comment:Testing performed by : [address], [address] RBC 3.93 3.90 - 5.20 M/cumm [facility] Comment:Testing performed by : [address], [address] MCV 88.0 81.3 - 96.4 fL [facility] Comment:Testing performed by : [address], [place]., [address] MCH 27.5 27.1 - 33.3 pg [facility] Comment:Testing performed by : [facility], [address] [place] [address], [address] MCHC 31.2(L) 32.3 - 35.7 g/dL [facility] Comment:Testing performed by : [facility], [address] [place] [address], [address] RDW CV 13.8 11.1 - 14.9 % [facility] Comment:Testing performed by : [facility], [address] [place] [address], [address] RDW SD 44.7 35.7 - 48.1 fL [facility] Comment:Testing performed by : [address], [address] NRBC abs 0.00 0.00 - 0.01 K/cumm [facility] Comment:Testing performed by : [address], [address] Blood 10/21/2024 11:1 8 AM POOL TECHNICIAN 10/21/2024 7:27 PM POOL TECHNICIAN Anival Bañuelos MD LAB BLOOD ORDERABLES Final Result MARIANNA [address] Department [place] [address] * Basic metabolic panel (10/21/2024 11:18 AM POOL TECHNICIAN) Sodium 145 135 - 145 mmol/L Comment:Testing performed by : [address], [address] Potassium, pl 3.9 3.3 - 4.9 mmol/L [facility] Comment:Testing performed by : [address], [address] Chloride 109 97 - 110 mmol/L [facility] Comment:Testing performed by : [address], [address] CO2 24 22 - 32 mmol/L [facility] Comment:Testing performed by : [address], [address] Anion gap 12 2 - 15 mmol/L MARIANNA Comment:Testing performed by : [facility], [address] [place] [address]., [address] BUN 19 6 - 25 mg/dL [facility]NA Comment:Testing performed by : [facility], [address] [place] [address]., [address] Creatinine 0.74 0.60 - 1.10 mg/dL [facility] Comment:Testing performed by : [address] [address] Glucose 83 70 - 199 mg/dL MARIANNA [...] was last revised 2022. Testing performed by: [facility], [address] [place] [address]., [address] Calcium 8.6 8.5 - 10.3 mg/dL [facility] Comment:Testing performed by : [address] [address] Blood 10/21/2024 11:1 8 AM POOL TECHNICIAN 10/21/2024 7:27 PM POOL TECHNICIAN Anival Bañuelos MD LAB BLOOD ORDERABLES Final Result [address] Department [place] [address] * Screening Mammogram Bilateral W Ramirez (04/09/2024 [...] Most Recently Relevant to Health Maintenance Insurance [facility] HMO/PPO Address: [facility] [address] [place] [address] Care Teams Enterprise Systems Engineer Relationship Specialty Start Date End Date Anival Bañuelos MD [address] [place] [address] PCP - General 01/28/17 Zacarias Garcia MD [address] [place] [address] Referring Physician Orthopedic Surgery 05/28/18 Christian Banegas MD [address] [place] [address] Consulting Physician Endocrinology 05/31/19 Jesusita Montiel MD [address] [place] [address] Brick Pitcher Obstetrics and Gynecology 02/05/21 [place] [address] [facility] [address] [place] [address] Consulting Physician Rheumatology 02/14/22
--- OUTSIDE RECORDS SUMMARY | 2024-12-31 19:11 | XMS_ITS | Continuity of Care Document ---
Author Organization [facility] Address [address] [place] [address] Phone Care Team Providers Care Jewelry Setter Name Role Phone Allie COREAS, Wolf Unavailable Unavailable Procedures Procedure Date LOWER EXTREM CAT W/O CONTRAST 2 Advance Directives Directive Yes / No Effective Date File Name No Information Encounters Encounter Description Practice Location Reason(s) For Visit Diagnoses Date Provider Providers Copied on Encounter [employer] [facility], [address], [place], [place], [id number], [place] tel:[phone] [facility] No Information Allie Bloom. [address] , [place], [place], [id number], [place]. tel:[phone] Referring Provider: Calvin Gabriel, [address] [place], [address]. tel:[phone] Family History Family Member Type Diagnosis Age At Onset No Information Payers Payer name Insurance type Covered alliance party ID Authoriza tion(s) No Information Social History [...]
--- OUTSIDE RECORDS SUMMARY | 2024-12-31 19:11 | XMS_ITS | Referral Summary ---
Author Organization [facility] [address] Address [address] [place] [address] Phone Care Team Providers Care Pet Resort Concierge Name Role Phone Anival Bañuelos MD Primary Care Provider [phone] Zacarias Garcia MD Unavailable [phone] Christian Banegas MD Unavailable [phone] Jesusita Montiel MD Unavailable Cata Nicole MD Unavailable Encounters Date Type Department Care Team Description 12/20/2024 2:00 PM SUB PRIOR Office Visit [facility] [address] [place] [address] Anival Bañuelos MD Morbid obesity with BMI of 40.0-44.9, adult ([facility]) (Primary Dx); Acute bilateral low back pain without sciatica; PSA (psoriatic arthritis) ([facility]) 12/17/2024 2:50 PM SUB PRIOR Lab [facility] [address] [place] [address] Acute bilateral low back pain without sciatica 12/17/2024 2:30 PM SUB PRIOR Ancillary Procedure [facility] [address] [place] [address] Constipation, unspecified constipation type 12/17/2024 1:30 PM SUB PRIOR [facility] [address] [place] [address] Anival Bañuelos MD Acute bilateral low back pain without sciatica (Primary Dx); Morbid obesity with BMI of 40.0-44.9, adult (HCC); Constipation, unspecified constipation type 12/14/2024 Orders Only [facility] [address] [place] [address] Scanning, Provider 12/14/2024 Telephone [facility] [address] [place] [address] Janel Alexander, ALVINO 11/26/2024 6:45 PM SUB PRIOR Office Visit [facility] Care at [address] [phone] Naty Stewart NP Acute cough (Primary Dx) 10/29/2024 Telephone [facility] [address] [place] [address] Anival Bañuelos MD 10/25/2024 Telephone [facility] [address] [place] [address] Janel Alexander, ALVINO 10/22/2024 Telephone [facility] [address] [place] [address] Sonya Wilson, RN 10/21/2024 Telephone [facility] [address] [place] [address] Janel Alexander, RN 10/21/2024 11:20 AM SUB PRIOR Lab [facility] [address] [place] [address] Morbid obesity with BMI of 40.0-44.9, adult (HCC); Benign essential HTN 10/21/2024 10:45 AM SUB PRIOR Office Visit [facility] [address] [place] [address] nAival Bañuelos MD Morbid obesity with BMI of 40.0-44.9, adult (HCC) (Primary Dx); Benign essential HTN 10/21/2024 Telephone [facility] [address] [place] [address] Anival Bañuelos MD Hypertension 10/06/2024 Telephone [facility] [address] [place] [address] Janel Alexander RN from Last 3 Months [...] 12/17/2024 Assessment & Plan (12/20/2024 6:05 PM SUB PRIOR): SYMTPOMS ARE BETTER OK TO DO CHRIOPRACTIC IF NECESSARY Assessment & Plan (12/17/2024 5:47 PM SUB PRIOR): CT OF THE SPINE WAS REVIEWED THERE IS NO SADDLE ANESTHESIA CURRENTLY ON STEROIDS ORALLY KENALOG 40 MG IM TIMES ONE CHIRO IS OK PT IS OK IF SYMTPMS GET WORSE WILL DO AN MRI OF THE L SPINE Morbid obesity with BMI of 40.0-44.9, adult 09/27 Assessment & Plan (12/20/2024 6:05 PM SUB PRIOR): CHRONIC AND STABLE Melina albicans infection 09/22/2024 Assessment & Plan (09/22/2024 10:35 AM SUB PRIOR): Etiology / pathogenesis was discussed today . [...] 02/28/2024 Assessment & Plan (10/21/2024 11:18 AM SUB PRIOR): GOAL BP IS 130/80 OR LESS CONTINUE [...] 10/29/2023 Assessment & Plan (10/29/2023 7:03 PM SUB PRIOR): URI symptoms for 2 weeks. Tested negative [...] 01/02/2021 Assessment & Plan (01/02/2021 3:06 PM SUB PRIOR): Patient presents with headache, cough, congestion and [...] 11/08/2020 Assessment & Plan (11/08/2020 9:38 AM SUB PRIOR): Pt started with tingling and then pain [...] aspiration biopsy demonstrated atypia of undetermined significance, Mayfield category lll. Patient is exhibiting no local [...] 01/26/2009 Assessment & Plan (12/20/2024 6:05 PM SUB PRIOR): SHE HAD USED MTX PLUS FOLIC ACID [...] on file Legal Sex Female 12:21 PM SUB PRIOR Gender Identity Not on file Sexual Orientation Straight 05/27/2024 1: 34 PM CDT Occupation Industry Job Start Date Job End Date Not on file Not on file Not on file Not on file Last Filed Vital Signs Vital Sign Reading Time Taken Comments Blood Pressure 130/88 12/20/2024 2:13 PM SUB PRIOR Pulse 108 12/20/2024 2:13 PM SUB PRIOR Temperature 36.8 C (98.2 F) 12/20/2024 2:13 PM SUB PRIOR Respiratory Rate 18 12/20/2024 2:13 PM SUB PRIOR Oxygen Saturation 99% 12/20/2024 2:13 PM SUB PRIOR Inhaled Oxygen Concentration - - Weight 94.5 kg (208 lb 6.4 oz) 12/20/2024 2:13 P M SUB PRIOR Height 152.4 cm (5') 12/20/2024 2:13 PM SUB PRIOR Body Mass Index 40.7 12/20/2024 2:13 PM SUB PRIOR Plan of Treatment Not on file Procedures Procedure Name Priority Date/Time Associated Diagnosis Comments XR KUB Schedule Routine, Read Routine (OP Routine) 12/17/2024 2:53 PM SUB PRIOR Constipation, unspecified constipation type URINALYSIS AND REFLEX TO MICROSCOPIC AND CULTURE Routine 12/17/2024 2:33 PM SUB PRIOR Acute bilateral low back pain without sciatica SCAN - RADIOLOGY/IMAGING 12/14/2024 9:29 AM SUB PRIOR POC INFLUENZA A/B, COVID-19 ANTIGEN Routine 11/26/2024 7:01 PM SUB PRIOR Acute cough IRON PROFILE W/ IBC Routine 11/10/2024 9 :21 AM SUB PRIOR Anemia, unspecified type CBC WITH AUTO DIFFERENTIAL Routine 11/10/2024 9:21 AM SUB PRIOR Anemia, unspecified type EGFR Routine 10/21/2024 11:18 AM SUB PRIOR Morbid obesity with BMI of 40.0-44.9, adult (HCC) Benign essential HTN DIFFERENTIAL AUTO Routine 10/21/2024 11: 18 AM SUB PRIOR Morbid obesity with BMI of 40.0-44.9, adult (HCC) Benign essential HTN PRO B-TYPE NATRIURETIC PEPTIDE Routine 10/21/2024 11:18 AM SUB PRIOR Morbid obesity with BMI of 40.0-44.9, adult (HCC) Benign essential HTN CBC WITH AUTO DIFFERENTIAL Routine 10/21/2024 11:18 AM SUB PRIOR Morbid obesity with BMI of 40.0-44.9, adult (HCC) Benign essential HTN BASIC METABOLIC PANEL Routine 10/21/2024 11:18 AM SUB PRIOR Morbid obesity with BMI of 40.0-44.9, adult (HCC) Benign essential HTN SCREENING MAMMOGRAM BILATERAL W RAMIREZ Schedule Routine, Read Routine (OP Routine) 04/09/2024 3:33 PM CDT Screening mammogram for breast cancer from Last 3 Months or Most Recently Relevant to Health Maintenance Results * XR Kub (12/17/2024 2:53 PM SUB PRIOR) Anatomical Region Laterality Modality Body, Abdomen N/A Computed Radiogr aphy 12/23/2024 8:41 AM SUB PRIOR Narrative 12/23/2024 8:43 AM SUB PRIOR EXAM DESCRIPTION: XR KUB REASON FOR STUDY: [...] Jaime Shannon M.D. RB: LOPEZ Report ID: [id number] Reading Location: [id number] Procedure Note Jaime Shannon MD - 12/23/2024 [...] Jaime Shannon M.D. RB: LOPEZ Report ID: [id number] Reading Location: [place] [address] Anival Bauñelos MD IMG XR PROCEDURES Final Re sult * Urinalysis reflex to microscopic and culture Urine, bladder (12/17/2024 2:33 PM SUB PRIOR) Color, ur Yellow Yellow Comment:Testing performed by : [address] [address] Clarity, ur Clear Clear CERNER Comment:Testing performed by : [address] [address] Specific gravity, ur 1.009 1.003 - 1.030 CERNER CH Comment:Testing performed by : [address] [address] pH, urine 5.0 CERNER Comment: Interpretive Data U rine pH is affected by diet, medications, systemic acid-base disturbances, and renal tubular function. pH may affect urinary stone formation. For example, urine pH below 6.0 may help reduce the tendency for calcium phosphate stones and pH greater than 6.0 may reduce the tendency for uric acid stone formation. Source: CrossCurrent Current Interpretive Data was last revised on 2017 Testing performed by: [address] [address] Protein, ur ql Negative Negative CERNER CH Comment:Testing performed by : [address] [address] Glucose, ur ql Negative Negative CERNER CH Comment:Testing performed by : [address], [place]., [address] Ketones, ur Negative Negative MARIANNA Comment:Testing performed by : [address] [address] Bilirubin, ur Negative Negative MARIANNA Comment:Testing performed by : [address] [address] Blood, ur Negative Negative MARIANNA Comment:Testing performed by : [address] [address] Urobilinogen, ur <2.0 <2.0 mg/dL MARIANNA Comment:Testing performed by : [address] [address] Nitrite, ur Negative Negative MARIANNA Comment:Testing performed by : [address] [address] Leukocyte esterase, ur Negative Negative MARIANNA Comment:Testing performed by : [address], [address] UA reflex comment Reflex conditions for microscopic UA and culture not met. MARIANNA Comment:Testing performed by : [address], [address] Urine, bladder 12/17/2024 2: 33 PM SUB PRIOR 12/17/2024 7:01 PM SUB PRIOR Anival Bañuelos MD LAB MICROBIOLOGY - GENERAL ORDERABLES Final Result [address] Department [place] [address] * SCAN - RADIOLOGY/IMAGING (12/14/2024 9:29 AM SUB PRIOR) Anatomical Region Laterality Modality Other Provider Scanning Final Result * (ABNORMAL) POC Influenza A/B, COVID-19 antigen (11/26/2024 7:01 PM SUB PRIOR) Influenza A Ag, POC Positive(A) Negative [facility] Influenza B Ag, POC Negative Negative [facility] COVID-19 Ag POC Presumptive Negative Presumptive Negative, Invalid [facility] Nasal 11/26/2024 7:01 PM SUB PRIOR Naty Stewart FANCY PACKER POINT OF CARE TEST ORDERABLES F inal Result Performing Organization Address City/[facility]/ZIP Co de Phone Number [facility] [address] * Iron profile w/ IBC (11/10/2024 9:21 AM SUB PRIOR) Pathologist [facility] Iron 75 40 - 190 mcg/dL [facility] TIBC 303 250 - 450 mcg/dL (calc) [facility] Iron saturation 25 16 - 45 % (calc) [facility] Blood 11/10/2024 9:21 AM SUB PRIOR 11/11/2024 6:04 AM SUB PRIOR Narrative [facility] - 11/11/2024 8:25 AM SUB PRIOR FASTING:YES FASTING: YES Anival Bañuelos MD LAB BLOOD ORDERABLES Final Result Performing Organization Address City/[facility]/ZIP Co de Phone Number [facility] [address] [place] [address] * (ABNORMAL) CBC with auto differential (11/10/2024 9:21 AM SUB PRIOR) [facility] WBC 5.4 3.8 - 10.8 Thousand/u L [...] [facility] Blood 11/10/2024 9:21 AM SUB PRIOR 11/11/2024 6:04 AM SUB PRIOR Narrative [facility] - 11/11/2024 8:25 AM SUB PRIOR FASTING:YES FASTING: YES Anival Bañuelos MD LAB BLOOD ORDERABLES Final Result [facility] [address] [place] [address] * eGFR (10/21/2024 11:18 AM SUB PRIOR) eGFR >90 >=60 mL/min/1. 73 m2 Comment: [...] was last reviewed 2021. Testing performed by: [facility], [address] [place] [address]., [address] Blood 10/21/2024 11:1 8 AM SUB PRIOR 10/21/2024 7:49 PM SUB PRIOR us Anival Bañuelos MD LAB BLOOD ORDERABLES Final Result [facility] [place] [address] [address] Department [place] [address] * Differential, auto (10/21/2024 11:18 AM SUB PRIOR) Neutrophil abs 3.9 1.5 - 6.5 K/cumm Comment:Testing performed by : [facility], [address] [place] [address]., [address] Imm gran abs 0.0 0.0 - 0.1 K/cumm CERNER Comment:Testing performed by : [address] [address] Lymphocyte abs 1.4 0.8 - 3.3 K/cumm CERLUZ ELENA Comment:Testing performed by : [address] [address] Monocyte abs 0.4 0.2 - 0.8 K/cumm [facility] ELENA Comment:Testing performed by : [address] [address] Eosinophil abs 0.2 0.0 - 0.5 K/cumm [facility] ELENA Comment:Testing performed by : [address] [address] Basophil abs 0.1 0.0 - 0.1 K/cumm CERNER Comment:Testing performed by : [address], [address] Neutrophil pct 65.5 % [facility] ELENA Comment: Interpretive Data Percent cell count reference ranges are not reported, since discordance with absolute values may lead to misinterpretation of CBC data. Current Interpretive Data was last revised on 2018. Testing performed by: [facility], [address] [place] [address]., [address] Imm gran pct 0.3 % [facility] Comment: Interpretive Data Percent cell count reference ranges are not reported, since discordance with absolute values may lead to misinterpretation of CBC data. Current Interpretive Data was last revised on 2018. Testing performed by: [address], [address] Lymphocyte pct 23.8 % [facility] Comment: Interpretive Data Percent cell count reference ranges are not reported, since discordance with absolute values may lead to misinterpretation of CBC data. Current Interpretive Data was last revised on 2018. Testing performed by: [address] [address] Monocyte pct 6.1 % [facility] Comment: Interpretive Data Percent cell count reference ranges are not reported, since discordance with absolute values may lead to misinterpretation of CBC data. Current Interpretive Data was last revised on 2018. Testing performed by: [address] [address] Eosinophil pct 3.5 % [facility] Comment: Interpretive Data Percent cell count reference ranges are not reported, since discordance with absolute values may lead to misinterpretation of CBC data. Current Interpretive Data was last revised on 2018. Testing performed by: [address] [address] Basophil pct 0.8 % [facility] Comment: Interpretive Data Percent cell count reference ranges are not reported, since discordance with absolute values may lead to misinterpretation of CBC data. Current Interpretive Data was last revised on 2018. Testing performed by: [address], [address] Blood 10/21/2024 11:1 8 AM SUB PRIOR 10/21/2024 7:27 PM SUB PRIOR Anival Bañuelos MD LAB BLOOD ORDERABLES Final Result [facility] [address] [address] [place] [address] * Pro B-type natriuretic peptide (10/21/2024 11:18 AM SUB PRIOR) NT-proBNP 260 <=300 pg/mL Comment: Interpretive Comments: [...] Last Revised Date: 2018. Testing performed by: [facility], [address] [place] [address], [place]., [address] Blood 10/21/2024 11:1 8 AM SUB PRIOR 10/21/2024 7:27 PM SUB PRIOR us Anival Bañuelos MD LAB BLOOD ORDERABLES Final Result [facility] [address] [address] [place] [address] * (ABNORMAL) CBC with auto differential (10/21/2024 11:18 AM SUB PRIOR) [facility] WBC 6.0 3.8 - 9.9 K/cumm Comment:Testing performed by : [address], [address] Hgb 10.8(L) 11.9 - 15.5 g/dL C[facility] CH Comment:Testing performed by : [address], [address] Hct 34.6(L) 35.6 - 45.5 % [facility] CH Comment:Testing performed by : [address], [address] Plt 305 150 - 400 K/cumm C[facility]ER CH Comment:Testing performed by : [address], [address] MPV 10.7 9.1 - 12.3 fL C[facility] CH Comment:Testing performed by : [address], [address] RBC 3.93 3.90 - 5.20 M/cumm C[facility] CH Comment:Testing performed by : [address], [address] MCV 88.0 81.3 - 96.4 fL [facility] CH Comment:Testing performed by : [address], [address] MCH 27.5 27.1 - 33.3 pg C[facility]ER CH Comment:Testing performed by : [address], [address] MCHC 31.2(L) 32.3 - 35.7 g/dL [facility] CH Comment:Testing performed by : [address], [address] RDW CV 13.8 11.1 - 14.9 % [facility] CH Comment:Testing performed by : [address], [address] RDW SD 44.7 35.7 - 48.1 fL [facility] CH Comment:Testing performed by : [address], [address] NRBC abs 0.00 0.00 - 0.01 K/cumm C[facility] CH Comment:Testing performed by : [address] [address] Blood 10/21/2024 11:1 8 AM SUB PRIOR 10/21/2024 7:27 PM SUB PRIOR Anival Bañuelos MD LAB BLOOD ORDERABLES Final Result [address] Department [place] [address] * Basic metabolic panel (10/21/2024 11:18 AM SUB PRIOR) Sodium 145 135 - 145 mmol/L Comment:Testing performed by : [address] [address] Potassium, pl 3.9 3.3 - 4.9 mmol/L [facility] Comment:Testing performed by : [address] [address] Chloride 109 97 - 110 mmol/L [facility] Comment:Testing performed by : [address] [address] CO2 24 22 - 32 mmol/L CERNER Comment:Testing performed by : [address] [address] Anion gap 12 2 - 15 mmol/L [facility] Comment:Testing performed by : [address] [address] BUN 19 6 - 25 mg/dL [facility] Comment:Testing performed by : [address] [address] Creatinine 0.74 0.60 - 1.10 mg/dL [facility] Comment:Testing performed by : [address] [address] Glucose 83 70 - 199 mg/dL [facility] Comment: Interpretive Data Fasting glucose [...] was last revised 2022. Testing performed by: [facility], [address] [place] [address]., [address] Calcium 8.6 8.5 - 10.3 mg/dL MARIANNA SANCHEZ Comment:Testing performed by : [facility], [address] [place] [address]., [address] Blood 10/21/2024 11:1 8 AM SUB PRIOR 10/21/2024 7:27 PM SUB PRIOR Anival Bañuelos MD LAB BLOOD ORDERABLES Final Result Performing Organization Address City/State/[facility] Co de Phone Number MARIANNA SANCHEZ [address] [place] [address] Department [place] [address] * Screening Mammogram Bilateral W Ramirez (04/09/2024 [...] her next mammogram. Electronically signed by: María Hassna M.D. Narrative 04/09/2024 3:40 PM CDT EXAMINATION: [...] Relevant to Health Maintenance Insurance Care Teams Pet Resort Concierge Relationship Specialty Start Date End Date Anival Bañuelos MD [address] [place] [address] PCP - General 01/28/17 Zacarias Garcia MD [address] [place] [address] Referring Physician Orthopedic Surgery 05/28/18 Christian Banegas MD [address] [place] [address] Consulting Physician Endocrinology 05/31/19 Jesusita Montiel MD [address] [place] [address] Table Games Supervisor Obstetrics and Gynecology 02/05/21 [place] [id number] [address] Consulting Physician Rheumatology 02/14/22
--- OUTSIDE RECORDS SUMMARY | 2024-12-31 19:11 | XMS_ITS | Encounter Summary ---
Author Organization [facility] Address [address] [place] [address] Phone Care Team Providers Care Weight Control Lecturer Name Role Phone Edda Anival Siddiqui MD Primary Care Provider [phone] Zacarias Garcia MD Unavailable [phone] Christian Banegas MD Unavailable [phone] Jesusita Montiel MD Unavailable Cata Nicole MD Unavailable Encounter Details Date Type Department Care Team (Late st Contact Info) Description 02/26/2023 Orders Only [facility] [address] [place] [address] Scanning, Provider Social History Tobacco [...] on file Legal Sex Female 12:21 PM IDENTITY ACCESS MANAGEMENT ARCHITECT Gender Identity Not on file Sexual Orientation [...] COVID: Suspected 10/29/2023 10/29/2023 10/29/2023 6:54 PM IDENTITY ACCESS MANAGEMENT ARCHITECT COVID: Suspected 11/20/2023 11/20/2023 11/20/2023 1:14 PM IDENTITY ACCESS MANAGEMENT ARCHITECT COVID: Suspected 03/14/2024 03/14/2024 03/14/2024 12:54 PM CDT COVID: Suspected 11/26/2024 11/26/2024 11/26/2024 7:03 PM IDENTITY ACCESS MANAGEMENT ARCHITECT Influenza, adult 11/26/2024 11/26/2024 12/03/2024 3:07 AM IDENTITY ACCESS MANAGEMENT ARCHITECT documented as of this encounter Care Teams Weight Control Lecturer Relationship Specialty Start Date End Date Anival Bañuelos MD [address] [place] [address] PCP - General 01/28/17 Zacarias Garcia MD [address] [place] [address] Referring Physician Orthopedic Surgery 05/28/18 Christian Banegas MD [address] [place] [address] Consulting Physician Endocrinology 05/31/19 Jesusita Montiel MD [address] [place] [address] Livestock Showman Obstetrics and Gynecology 02/05/21 [place] [id number] [address] Consulting Physician Rheumatology 02/14/22 documented as of this encounter
--- OUTSIDE RECORDS SUMMARY | 2024-12-31 19:11 | XMS_ITS | Encounter Summary ---
Author Organization [facility] Address [address] [place] [address] Phone Care Team Providers Care Anthropologist Physical Name Role Phone Edda Anival Siddiqui MD Primary Care Provider [phone] Zacarias Garcia MD Unavailable [phone] Christian Banegas MD Unavailable [phone] Jesusita Montiel MD Unavailable Cata Nicole MD Unavailable Encounter Details Date Type Department Care Team (Late st Contact Info) Description 11/06/2022 Orders Only [facility] [address] [place] [address] Scanning, Provider Social History Tobacco [...] on file Legal Sex Female 12:21 PM MICROFABRICATION ENGINEER MANAGER Gender Identity Not on file Sexual Orientation [...] COVID: Suspected 10/29/2023 10/29/2023 10/29/2023 6:54 PM MICROFABRICATION ENGINEER MANAGER COVID: Suspected 11/20/2023 11/20/2023 11/20/2023 1:14 PM MICROFABRICATION ENGINEER MANAGER COVID: Suspected 03/14/2024 03/14/2024 03/14/2024 12:54 PM CDT COVID: Suspected 11/26/2024 11/26/2024 11/26/2024 7:03 PM MICROFABRICATION ENGINEER MANAGER Influenza, adult 11/26/2024 11/26/2024 12/03/2024 3:07 AM MICROFABRICATION ENGINEER MANAGER documented as of this encounter Care Teams Anthropologist Physical Relationship Specialty Start Date End Date Anival Bañuelos MD [address] [place] [address] PCP - General 01/28/17 Zacarias Garcia MD [address] [place] [address] Referring Physician Orthopedic Surgery 05/28/18 Christian Banegas MD [address] [place] [address] Consulting Physician Endocrinology 05/31/19 Jesusita Montiel MD [address] [place] [address] Director Of Accounting Obstetrics and Gynecology 02/05/21 [place] [address] [facility] [address] [place] [address] Consulting Physician Rheumatology 02/14/22 documented as of this encounter
--- OUTSIDE RECORDS SUMMARY | 2024-12-31 19:11 | XMS_ITS | Encounter Summary ---
Author Organization [facility] Address [address] [place] [address] Phone Care Team Providers Care Concierge Name Role Phone Edda Anival Siddiqui MD Primary Care Provider [phone] Zacarias Garcia MD Unavailable [phone] Christian Banegas MD Unavailable [phone] Jesusita Montiel MD Unavailable Cata Nicole MD Unavailable Encounter Details Date Type Department Care Team (Late st Contact Info) Description 01/09/2023 Orders Only [facility] [address] [place] [address] Scanning, Provider Social History Tobacco [...] on file Legal Sex Female 12:21 PM CARDIAC SPECIALIST Gender Identity Not on file Sexual [...] COVID: Suspected 10/29/2023 10/29/2023 10/29/2023 6:54 PM CARDIAC SPECIALIST COVID: Suspected 11/20/2023 11/20/2023 11/20/2023 1:14 PM CARDIAC SPECIALIST COVID: Suspected 03/14/2024 03/14/2024 03/14/2024 12:54 PM CDT COVID: Suspected 11/26/2024 11/26/2024 11/26/2024 7:03 PM CARDIAC SPECIALIST Influenza, adult 11/26/2024 11/26/2024 12/03/2024 3:07 AM CARDIAC SPECIALIST documented as of this encounter Care Teams Concierge Relationship Specialty Start Date End Date Anival Bañuelos MD [address] [place] [address] PCP - General 01/28/17 Zacarias Garcia MD [address] [place] [address] Referring Physician Orthopedic Surgery 05/28/18 Christian Banegas MD [address] [facility] [address] [place] [address] Consulting Physician Endocrinology 05/31/19 Jesusita Montiel MD [address] [place] [address] Organizational Consultant Obstetrics and Gynecology 02/05/21 [place] [address] [facility] [address] [place] [address] Consulting Physician Rheumatology 02/14/22 documented as of this encounter
--- OUTSIDE RECORDS SUMMARY | 2024-12-31 19:11 | XMS_ITS | Encounter Summary ---
Author Organization [facility] Address [address] [place] [address] Phone Care Team Providers Care Technical Sme Name Role Phone Edda, Anival Siddiqui MD Primary Care Provider +- [phone] Jasbir Mac MD Unavailable [phone] Zacarias Garcia MD Unavailable [phone] Christian Banegas MD Unavailable [phone] Jesusita Montiel MD Unavailable Cata Nicole MD Unavailable Encounter Details Date Type Department Care Team (Late st Contact Info) Description 04/10/2017 Orders Only [facility] [address] [place] [address] Sonam Chapman LPN Social History Tobacco Use Types Packs/Day Years Used Date Smoking Tobacco: Never Alcohol Use Standard Drinks/Week Comments No 0 (1 standard drink = 0.6 oz pur e alcohol) Comments Unknown Sex and Gender Information Value Date Recorded Sex Assigned at Not on file 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 Sex 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 Gender Identity Not on file Sexual Orientation [...] COVID: Suspected 01/02/2021 01/02/2021 01/02/2021 2:30 PM COMMERCIAL FINANCE ANALYST COVID: Suspected 01/04/2021 01/04/2021 01/04/2021 2:21 PM COMMERCIAL FINANCE ANALYST COVID: Suspected 02/08/2022 02/08/2022 02/08/2022 10:56 AM CDT COVID: Suspected 10/29/2023 10/29/2023 10/29/2023 6:54 PM COMMERCIAL FINANCE ANALYST COVID: Suspected 11/20/2023 11/20/2023 11/20/2023 1:14 PM COMMERCIAL FINANCE ANALYST COVID: Suspected 03/14/2024 03/14/2024 03/14/2024 12:54 PM CDT COVID: Suspected 11/26/2024 11/26/2024 11/26/2024 7:03 PM COMMERCIAL FINANCE ANALYST Influenza, adult 11/26/2024 11/26/2024 12/03/2024 3:07 AM COMMERCIAL FINANCE ANALYST documented as of this encounter Care Teams Technical Sme Relationship Specialty Start Date End Date Anival Bañuelos MD [address] [place] [address] PCP - General 01/28/17 Jasbir Mac MD [address] [address] Referring Physician Obstetrics and Gynecology 05/28/18 02/04/21 Zacarias Garcia MD [address] [address] Referring Physician Orthopedic Surgery 05/28/18 Christian Banegas MD [address] [facility] [address] [place] [address] Consulting Physician Endocrinology 05/31/19 Jesusita Montiel MD [address] [facility] [place] [address] Chief Customer Officer Obstetrics and Gynecology 02/05/21 [place] [address] [facility] [address] [place] [address] Consulting Physician Rheumatology 02/14/22 documented as of this encounter
--- OUTSIDE RECORDS SUMMARY | 2024-12-31 19:11 | XMS_ITS | Encounter Summary ---
Author Organization [facility] Address [address] [place] [address] Phone Care Team Providers Care Belt Press Operator Name Role Phone Edda Anival Siddiqui MD Primary Care Provider +- [phone] Jasbir Mac MD Unavailable [phone] Zacarias Garcia MD Unavailable [phone] Christian Banegas MD Unavailable [phone] Jesusita Montiel MD Unavailable Cata Nicole MD Unavailable Encounter Details Date Type Department Care Team (Late st Contact Info) Description 08/15/2020 Orders Only [facility] [address] [place] [address] Scanning, Provider Social History Tobacco Use Types Packs/Day Years Used Date Smoking Tobacco: Never Smokeless Tobacco: Never Alcohol Use Standard Drinks/Week Comments No 0 (1 standard drink = 0.6 oz pur e alcohol) Comments No Sex and Gender Information Value Date Recorded Sex Assigned at Not on file 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 Gender Identity Not on file Sexual Orientation [...] COVID: Suspected 01/02/2021 01/02/2021 01/02/2021 2:30 PM TOP INSTALLER COVID: Suspected 01/04/2021 01/04/2021 01/04/2021 2:21 PM TOP INSTALLER COVID: Suspected 02/08/2022 02/08/2022 02/08/2022 10:56 AM CDT COVID: Suspected 10/29/2023 10/29/2023 10/29/2023 6:54 PM TOP INSTALLER COVID: Suspected 11/20/2023 11/20/2023 11/20/2023 1:14 PM TOP INSTALLER COVID: Suspected 03/14/2024 03/14/2024 03/14/2024 12:54 PM CDT COVID: Suspected 11/26/2024 11/26/2024 11/26/2024 7:03 PM TOP INSTALLER Influenza, adult 11/26/2024 11/26/2024 12/03/2024 3:07 AM TOP INSTALLER documented as of this encounter Care Teams Belt Press Operator Relationship Specialty Start Date End Date Anival Bañuelos MD [address] [place] [address] PCP - General 01/28/17 Jasbir Mac MD [address] [place] [address] Referring Physician Obstetrics and Gynecology 05/28/18 02/04/21 Zacarias Garcia MD [address] [address] Referring Physician Orthopedic Surgery 05/28/18 Christian Banegas MD [address] [place] [address] [place] [address] Consulting Physician Endocrinology 05/31/19 Jesusita Montiel MD [address] [place] [address] Nuclear Equipment Research Engineer Obstetrics and Gynecology 02/05/[address] [place] [address] [facility] [address] [place] [address] Consulting Physician Rheumatology 02/14/22 documented as of this encounter
[2024-12-31] MEDS: LORazepam (*CRX) 1 MG TABLET PO (19:12)
== END 2024-12-31 19:24 | disposition home or self-care (01) ==
PROVIDERS: Emergency Provider Emergency Medicine; PCP Internal Medicine Infectious Disease
DX: S76.911A Strain of unspecified muscles, fascia and tendons at thigh level, right thigh, initial encounter (principal); F41.0 Panic disorder [episodic paroxysmal anxiety]; E03.9 Hypothyroidism, unspecified; T14.8XXA Other injury of unspecified body region, initial encounter; X58.XXXA Exposure to other specified factors, initial encounter
CPT/HCPCS: 99283; A9270